=== PATIENT | female | born 1970 | race Caucasian/White ===

== ENCOUNTER → 2018-04-13 14:32 | Outpatient (CLI) | payer OTHER, SELFPAY | PROVIDERS: Family Provider Family Medicine; PCP Family Medicine; Visit Provider Family Medicine | DX: Z12.31 Encounter for screening mammogram for malignant neoplasm of breast (principal) | CPT/HCPCS: 77063; 77067 ==

== ENCOUNTER → 2018-09-06 13:28 | Outpatient (CLI) | payer OTHER, SELFPAY ==
[2018-09-06 11:08] VITALS: BMI 22.8
[2018-09-09 20:18] LABS: HPV APTIMA, High Risk Positive (Negative)
== END ==
PROVIDERS: Family Provider Family Medicine; PCP Family Medicine; Referring Provider Obstetrics & Gynecology; Visit Provider Obstetrics & Gynecology
DX: Z12.4 Encounter for screening for malignant neoplasm of cervix (principal)
CPT/HCPCS: 87624; 88175; G0145

== ENCOUNTER → 2018-10-13 13:20 | Outpatient (CLI) | payer OTHER, SELFPAY ==
[2018-10-13 10:18] VITALS: BMI 23.3
--- NOTE | 2018-10-13 11:30 | CER_PTH ---
PATIENT: KARINE HASSAN LOC: [facility]#:[id number] AGE/SX: 55/F ROOM: RE10/13/[address]: Dr. Aida Mena MD : 1970 BED: DIS: SPEC #: [id number] RECD: 10/13/18 14:16 STATUS: JAMILA MCKENNA #: [id number] SEBASTIEN: 10/13/18 11:[address]: Aida Mena DEPT: SURGICAL PATHOLOGY RECD BY: José Miguel Kumar ENTERED: 10/13/18 14:17 SP TYPE: CERV OTHR DR: Dr. Karine Parsons DO Tissues: Uterine cervix, NOS Procedures: Surgery Specimen Level IV HEADER OPERATION: Colposcopy PRE-OP DIAGNOSIS: Abnormal pap TISSUE SUBMITTED: 6 o'clock MICROSCOPIC DIAGNOSIS Cervix at 6 o'clock, biopsy: Fibrous tissue with vascular ectasia, focal recent hemorrhage and chronic inflammation. AM:lydia 10/16/18 COMMENT Squamous ucosa is not represented in the biopsy. Clinical correlation is suggested. Case has been reviewed in consultation with Dr. Izaguirre who concurs with the above diagnosis. IDC:[email or web address] MICROSCOPIC DESCRIPTION Slides are reviewed. GROSS DESCRIPTION Received is one container labeled with the patient's name and not further designated. The specimen consists of one minute fragment and multiple fragments of segovia mucoid tissue. The minute fragment measures 0.1 cm in greatest dimension. The specimen is totally submitted in one cassette. / YAW:lydia 10/13/18 TC:3 CPT: 90746
== END ==
PROVIDERS: Family Provider Family Medicine; PCP Family Medicine; Referring Provider Obstetrics & Gynecology; Visit Provider Obstetrics & Gynecology
DX: R87.619 Unspecified abnormal cytological findings in specimens from cervix uteri (principal)
CPT/HCPCS: 88305

== ENCOUNTER → 2019-09-11 16:58 | Outpatient (CLI) | payer OTHER, SELFPAY ==
[2019-09-11 14:09] VITALS: BMI 23.3
[2019-09-18 16:42] LABS: HPV APTIMA, High Risk Positive (Negative)
== END ==
PROVIDERS: Family Provider Family Medicine; PCP Family Medicine; Referring Provider Obstetrics & Gynecology; Visit Provider Obstetrics & Gynecology
DX: N87.0 Mild cervical dysplasia (principal)
CPT/HCPCS: 87624; 88175; G0145

== ENCOUNTER → 2019-09-19 14:25 | Outpatient (CLI) | payer OTHER, SELFPAY ==
[2019-09-11 14:09] VITALS: BMI 23.3
--- NOTE | 2019-09-19 14:26 | BI_ITS ---
MAMMOGRAPHY - BILATERAL SCREENING REASON FOR EXAM: Female, 49 years old. Routine annual screening examination. PERTINENT HISTORY: Non-contributory. TECHNIQUE: Digital bilateral breast gustavo (3D mammographic acquisition) in the CC and MLO projections. 2-D mediolateral oblique (MLO) and craniocaudad (CC) views of both breasts were obtained. CAD: Full Field Digital Mammography with Computer Added Detection was performed. COMPARISON: Comparison is made with prior examination dated April 13, 2018. FINDINGS: Breast Composition: The breasts are extremely dense, which lowers the sensitivity of mammography. There are no dominant masses or suspicious calcifications. A tissue clip marker is once again seen in the upper lateral aspect of the right breast from prior biopsy. No other significant abnormalities are identified. There has been no significant change since the prior study. BI/SCREEN MAMM (CAD) W/GUSTAVO BILAT IMPRESSION: Stable bilateral screening mammogram. Yearly follow-up mammogram recommended. (A) ASSESSMENT CATEGORY: BIRADS Category 2: Benign. A letter regarding these results will be sent to the patient by the facility within 30 days. Approximately 10% of breast cancers are not detected by mammography. A normal mammogram should not delay biopsy of a clinically suspicious abnormality. [id number] Electronically Signed: Isidro Marino, at 15:30 EST , Service support ,
== END ==
PROVIDERS: Family Provider Family Medicine; PCP Family Medicine; Referring Provider Obstetrics & Gynecology; Visit Provider Obstetrics & Gynecology
DX: Z12.31 Encounter for screening mammogram for malignant neoplasm of breast (principal)
CPT/HCPCS: 77063; 77067

== ENCOUNTER → 2020-09-22 08:38 | Outpatient (CLI) | payer OTHER, SELFPAY ==
[2019-11-07 09:04] VITALS: BMI 24.0
--- NOTE | 2020-09-22 08:39 | BI_ITS ---
MAMMOGRAPHY - BILATERAL SCREENING REASON FOR EXAM: Female, 50 years old. Routine annual screening examination. PERTINENT HISTORY: Non-contributory. TECHNIQUE: Digital bilateral breast gustavo (3D mammographic acquisition) in the CC and MLO projections. 2-D mediolateral oblique (MLO) and craniocaudad (CC) views of both breasts were obtained. CAD: Full Field Digital Mammography with Computer Added Detection was performed. COMPARISON: Comparison is made with prior study dated 03/19/2020 and 04/13/2018. FINDINGS: Breast Composition: The breasts are extremely dense, which lowers the sensitivity of mammography. There are no dominant masses or suspicious calcifications. A tissue clip marker is once again seen in the upper lateral deep portion of the right breast. No other significant abnormalities are identified. There has been no significant change since the prior study. BI/SCRN MAMM (CAD)W/GUSTAVO BILAT IMPRESSION: Stable bilateral screening mammogram. Yearly follow-up mammogram recommended. (A) ASSESSMENT CATEGORY: BIRADS Category 2: Benign. A letter regarding these results will be sent to the patient by the facility within 30 days. Approximately 10% of breast cancers are not detected by mammography. A normal mammogram should not delay biopsy of a clinically suspicious abnormality. [id number] Electronically Signed: Isidro Marino MD at 9:33 EST , Service support ,
== END ==
PROVIDERS: PCP Family Medicine; Referring Provider Obstetrics & Gynecology; Visit Provider Obstetrics & Gynecology
DX: Z12.31 Encounter for screening mammogram for malignant neoplasm of breast (principal)
CPT/HCPCS: 77063; 77067

== ENCOUNTER → 2020-09-26 13:39 | Outpatient (CLI) | payer OTHER, SELFPAY ==
[2020-09-26 11:43] VITALS: BMI 24.7
[2020-09-30 21:13] LABS: HPV APTIMA, High Risk Positive (Negative)
== END ==
PROVIDERS: PCP Family Medicine; Referring Provider Obstetrics & Gynecology; Visit Provider Obstetrics & Gynecology
DX: Z12.4 Encounter for screening for malignant neoplasm of cervix (principal)
CPT/HCPCS: 87624; 88175; G0145

== ENCOUNTER → 2020-10-10 16:00 | Outpatient (CLI) | payer OTHER, SELFPAY ==
[2020-10-09 14:23] VITALS: BMI 24.9
--- NOTE | 2020-10-10 | CER_PTH ---
PATIENT: KARINE HASSAN LOC: [facility] U#:[id number] AGE/SX: 55/F ROOM: RE10/10/[address]: Dr. Aida Mena MD : 1970 BED: DIS: SPEC #: [id number] RECD: 10/13/20 08:08 STATUS: JAMILA MCKENNA #: [id number] SEBASTIEN: 10/10/20 00:[address]: Aida Mena DEPT: SURGICAL PATHOLOGY RECD BY: Aleta Mak ENTERED: 10/13/20 08:08 SP TYPE: CERV OTHR DR: Dr. Karine Parsons DO Tissues: A - Uterine cervix, NOS B - Endocervical Procedures: Surgery Specimen Level IV HEADER OPERATION: Colposcopy PRE-OP DIAGNOSIS: LGSIL HPV TISSUE SUBMITTED: A - Cervical 7 o'clock, B - ECC MICROSCOPIC DIAGNOSIS A. Cervix at 7 o'clock, biopsy: Focal HPV change present. Squamous metaplasia and chronic inflammation. See comment. B. Endocervix, curettings: Scant strips of benign superficial endocervix. No evidence of dysplasia. AM:lydia 10/13/2020 COMMENT A. Results from immunohistochemistry ([id number]) for surrogate HPV marker (p16) will be reported separately. MICROSCOPIC DESCRIPTION Slides are reviewed. GROSS DESCRIPTION A - Received in fixative is one container labeled with the patient's name and designated cervical biopsy 7 o'clock. The specimen consists of one irregular fragment of light segovia soft tissue that measures 0.3 x 0.3 x 0.1 cm. The specimen is totally submitted in one cassette. B - Received in fixative is one container labeled with the patient's name and designated ECC. The specimen consists of a scant amount of soft tissue. The specimen is totally submitted for cell block preparation. / SJ:lydia 10/10/20 TC:3 CPT: 97463 x2
--- NOTE | 2020-10-10 | IMM_PTH ---
PATIENT: KARINE HASSAN LOC: [facility] U#:[id number] AGE/SX: 55/F ROOM: RE10/10/[address]: Dr. Aida Mena MD : 1970 BED: DIS: SPEC #: [id number] RECD: 10/13/20 14:31 STATUS: JAMILA REQ #: [id number] SEBASTIEN: 10/10/20 00:[address]: Aida Mena DEPT: IMMUNOHISTOCHEMISTRY RECD BY: Conchita Elaine ENTERED: 10/13/20 14:32 SP TYPE: IMMUNO OTHR DR: Dr. Karine Parsons DO Tissues: A - Uterine cervix, NOS Procedures: p16 (initial) KI-67 (add) PHYSICIAN & INSTITUTION [place] [address] SPECIMEN INFORMATION: Tissue Source: A - Cervix at 7 o'clock Clinical Info: [facility] HPV Specimen Number: [id number] CPT code: 15423, 32328 METHODOLOGY: Deparaffinized sections of prefer/formalin-fixed tissue or PAP/DQ stained slides are incubated with monoclonal/polyclonal antibodies/oligonucleotide probes. Localization is made via biotin free immunoperoxidase method. Appropriate controls are performed and reacted as expected. Results on target cell population are indicated in the following table: RESULTS: ANTIBODY / CLONE RESULT Block A P16 (E6H4) positive, focal, patchy Ki-67 (30-9) positive These tests were developed and their performance characteristics determined by [facility]. They may not have been cleared or approved by the U.S. Food and Drug Administration. The FDA has determined that such clearance or approval is not necessary. The above immunohistochemical/dualISH markers are ordered and reviewed by the Pathologist. INTERPRETATION: A. Cervix at 7 o'clock, biopsy: Focal HPV change present. AM:lydia 10/14/2020
== END ==
PROVIDERS: PCP Family Medicine; Visit Provider Obstetrics & Gynecology
DX: R87.622 Low grade squamous intraepithelial lesion on cytologic smear of vagina (LGSIL) (principal)
CPT/HCPCS: 88305; 88341; 88342

== ENCOUNTER 2020-11-14 09:59 | Outpatient (RCR) | payer OTHER, SELFPAY ==
[2020-10-09 14:23] VITALS: BMI 24.9
[2020-11-14] MEDS: COVID-19 VACC, MRNA(PFIZER)/PF 30 MCG/0.3 ML SYRINGE IM (12:20)
[2020-12-05] MEDS: COVID-19 VACC, MRNA(PFIZER)/PF 30 MCG/0.3 ML SYRINGE IM (12:02)
== END 2020-11-14 23:59 ==
LOC: IMMUN 09:59
PROVIDERS: PCP Family Medicine; Visit Provider Family Medicine
DX: Z23 Encounter for immunization (principal)
CPT/HCPCS: 0001A; 0002A; 91300

== ENCOUNTER 2021-09-23 07:58 | Outpatient (CLI) | payer OTHER, SELFPAY ==
--- NOTE | 2021-09-23 08:03 | BI_ITS ---
MAMMOGRAPHY - BILATERAL SCREENING REASON FOR EXAM: Female, 51 years old. Routine annual screening examination. PERTINENT HISTORY: Non-contributory. TECHNIQUE: Digital bilateral breast gustavo (3D mammographic acquisition) in the CC and MLO projections. 2-D mediolateral oblique (MLO) and craniocaudad (CC) views of both breasts were obtained. CAD: Full Field Digital Mammography with Computer Added Detection was performed. COMPARISON: Comparison is made with prior study dated 09/22/2020 and 03/19/2020. FINDINGS: Breast Composition: The breasts are extremely dense, which lowers the sensitivity of mammography. There are no dominant masses or suspicious calcifications. Interstitial clip marker is once again seen in the upper lateral deep portion of the right breast. No other significant abnormalities are identified. There has been no significant change since the prior study. BI/SCRN MAMM (CAD)W/GUSTAVO BILAT IMPRESSION: Stable bilateral screening mammogram. Yearly follow-up mammogram recommended. (A) ASSESSMENT CATEGORY: BIRADS Category 2: Benign. A letter regarding these results will be sent to the patient by the facility within 30 days. Approximately 10% of breast cancers are not detected by mammography. A normal mammogram should not delay biopsy of a clinically suspicious abnormality. [id number] Electronically Signed: Isidro Marino MD at 9:13 EST ,
== END 2021-09-23 23:59 | disposition short-term general hospital (02) ==
PROVIDERS: PCP Family Medicine; Referring Provider Obstetrics & Gynecology; Visit Provider Obstetrics & Gynecology
DX: Z12.31 Encounter for screening mammogram for malignant neoplasm of breast (principal)
CPT/HCPCS: 77063; 77067

== ENCOUNTER 2021-10-06 17:10 | Outpatient (CLI) | payer OTHER, SELFPAY ==
[2021-10-12 16:54] LABS: HPV APTIMA, High Risk Positive (Negative)
== END 2021-10-06 23:59 | disposition home or self-care (01) ==
PROVIDERS: PCP Family Medicine; Visit Provider Obstetrics & Gynecology
DX: Z12.4 Encounter for screening for malignant neoplasm of cervix (principal)
CPT/HCPCS: 87624; 88175; G0145

== ENCOUNTER → 2021-12-31 | Outpatient (CLI) | payer OTHER, SELFPAY ==
--- NOTE | 2021-12-31 14:00 | CER_PTH ---
PATIENT: KARINE HASSAN LOC: [facility] U#:[id number] AGE/SX: 51/F ROOM: RE12/31/[address]: Dr. Yadira Hidalgo DO : 1970 BED: DIS: 12/31/2021 SPEC #: [id number] RECD: 12/31/21 15:41 STATUS: JAMILA ANDRES #: [id number] SEBASTIEN: 12/31/21 14:[address]: Yadira Hidalgo DEPT: SURGICAL PATHOLOGY RECD BY: Aleta Mak ENTERED: 01/01/22 13:38 SP TYPE: CERV OTHR DR: Dr. Karine Parsons DO Tissues: A - Endocervical B - Uterine cervix, NOS C - Uterine cervix, NOS Procedures: Surgery Specimen Level IV HEADER OPERATION: Colposcopy PRE-OP DIAGNOSIS: SIERRA I TISSUE SUBMITTED: A ? Endocervical curettings, B ? 12 o?clock, C ? 6 o?clock MICROSCOPIC DIAGNOSIS A. Endocervical curettings: Scant fragments of benign endocervical epithelium and benign endocervical mucosa with mild chronic inflammation. Negative for dysplasia. B. Cervix, 12 o?clock, biopsy: Focal mild chronic inflammation and squamous metaplasia. Negative for dysplasia. C. Cervix, 6 o?clock, biopsy: A fragment of benign endocervical mucosa with mild chronic inflammation. Negative for dysplasia. SJ:lydia 01/04/2022 MICROSCOPIC DESCRIPTION Slides are reviewed. GROSS DESCRIPTION A - Received in fixative is one container labeled with the patient's name and designated endocervical curettings. The specimen consists of a scant amount of soft tissue. The specimen is totally submitted for cell block preparation. B - Received is one container labeled with the patient's name and not further designated. The specimen consists of a single irregular fragment of segovia tissue measuring 0.7 x 0.3 x 0.2 cm. The specimen is totally submitted in one cassette. C - Received is one container labeled with the patient's name and not further designated. The specimen consists of multiple irregular fragments of segovia soft tissue that in aggregate measure 0.2 x 0.2 x 0.1 cm. The specimen is totally submitted in one cassette. / AM:lydia 01/01/2022 TC:3 CPT: 20002 x3
== END | disposition home or self-care (01) ==
PROVIDERS: PCP Family Medicine; Visit Provider Obstetrics & Gynecology
DX: N87.0 Mild cervical dysplasia (principal)
CPT/HCPCS: 88305

== ENCOUNTER → 2022-10-29 | Outpatient (CLI) | payer OTHER, SELFPAY ==
--- NOTE | 2022-10-29 07:40 | BI_ITS ---
MAMMOGRAPHY - BILATERAL SCREENING REASON FOR EXAM: Female, 52 years old. Routine annual screening examination. PERTINENT HISTORY: Aunt with breast cancer. Prior right ultrasound-guided breast biopsy. TECHNIQUE: Digital bilateral breast gustavo (3D mammographic acquisition) in the CC and MLO projections. 2-D mediolateral oblique (MLO) and craniocaudad (CC) views of both breasts were obtained. CAD: Full Field Digital Mammography with Computer Added Detection was performed. COMPARISON: Comparison is made with prior study dated March 23, 2022 and March 22, 2021. FINDINGS: Breast Composition: The breasts are extremely dense, which lowers the sensitivity of mammography. There are no dominant masses or suspicious calcifications. A tissue clip marker is once again seen in the upper deep slightly lateral aspect of the right breast. No other significant abnormalities are identified. There has been no significant change since the prior study. BI/SCRN MAMM (CAD)W/GUSTAVO BILAT IMPRESSION: Stable bilateral screening mammogram. Yearly follow-up mammogram recommended. (A) ASSESSMENT CATEGORY: BIRADS Category 2: Benign. A letter regarding these results will be sent to the patient by the facility within 30 days. Approximately 10% of breast cancers are not detected by mammography. A normal mammogram should not delay biopsy of a clinically suspicious abnormality. [id number] Electronically Signed: Isidro Marino MD at 9:03 EST ,
== END | disposition home or self-care (01) ==
LOC: OPBI 07:40
PROVIDERS: PCP Family Medicine; Visit Provider Obstetrics & Gynecology
DX: Z12.31 Encounter for screening mammogram for malignant neoplasm of breast (principal)
CPT/HCPCS: 77063; 77067

== ENCOUNTER → 2022-12-14 | Outpatient (CLI) | payer OTHER, SELFPAY ==
[2022-12-14 14:26] LABS: Estradiol < 11.0 pg/mL; Follicle Stimulating Hormone 89.4 mIU/mL; Thyroid Stim Hormone (TSH) 1.68 uIU/mL (0.358-3.74)
[2022-12-22 16:09] LABS: HPV APTIMA, High Risk Positive (Negative)
== END | disposition home or self-care (01) ==
PROVIDERS: PCP Family Medicine; Referring Provider Obstetrics & Gynecology; Visit Provider Obstetrics & Gynecology
DX: N95.1 Menopausal and female climacteric states (principal); Z12.4 Encounter for screening for malignant neoplasm of cervix
CPT/HCPCS: 36415; 82670; 83001; 84443; 87624; 88175; G0145

== ENCOUNTER → 2023-01-13 | Outpatient (CLI) | payer OTHER, SELFPAY ==
--- NOTE | 2023-01-13 | IMM_PTH ---
PATIENT: KARINE HASSAN LOC: [facility] U#:[id number] AGE/SX: 52/F ROOM: RE01/13/[address]: Dr. Aida Mena MD : 1970 BED: DIS: 01/13/2023 SPEC #: [id number] RECD: 01/17/23 12:06 STATUS: JAMILA REQ #: [id number] SEBASTIEN: 01/13/23 00:[address]: Aida Mena DEPT: IMMUNOHISTOCHEMISTRY RECD BY: Conchita Elaine ENTERED: 01/17/23 12:07 SP TYPE: IMMUNO OTHR DR: Dr. Karine Parsons, DO Tissues: Uterine cervix, NOS Procedures: p16 (initial) KI-67 (add) PHYSICIAN & INSTITUTION [place] [address] SPECIMEN INFORMATION: Tissue Source: Cervix, 2 o?clock Clinical Info: HPV positive Specimen Number: [id number] CPT code: 29754, 38238 METHODOLOGY: Deparaffinized sections of prefer/formalin-fixed tissue or PAP/DQ stained slides are incubated with monoclonal/polyclonal antibodies/oligonucleotide probes. Localization is made via biotin free immunoperoxidase method. Appropriate controls are performed and reacted as expected. Results on target cell population are indicated in the following table: RESULTS: ANTIBODY / CLONE RESULT P16 (E6H4) positive, rare cells with patchy staining Ki-67 (30-9) positive, very low These tests were developed and their performance characteristics determined by [facility]. They may not have been cleared or approved by the U.S. Food and Drug Administration. The FDA has determined that such clearance or approval is not necessary. The above immunohistochemical/dualISH markers are ordered and reviewed by the Pathologist. INTERPRETATION: Cervix, 2 o?clock, biopsy: Focal changes consistent with HPV cytopathic effects. SJ:lydia 01/18/2023
--- NOTE | 2023-01-13 15:45 | CER_PTH ---
PATIENT: KARINE HASSAN LOC: [facility]#:[id number] AGE/SX: 52/F ROOM: RE01/13/[address]: Dr. Aida Mena MD : 1970 BED: DIS: 01/13/2023 SPEC #: [id number] RECD: 01/13/23 16:41 STATUS: JAMILA ANDRES #: [id number] SEBASTIEN: 01/13/23 15:[address]: Aida Mena DEPT: SURGICAL PATHOLOGY RECD BY: Mami Verdin ENTERED: 01/14/23 07:27 SP TYPE: CERV OTHR DR: Dr. Karine Parsons, DO Tissues: Uterine cervix, NOS Procedures: Surgery Specimen Level IV HEADER OPERATION: Colposcopy PRE-OP DIAGNOSIS: HPV positive TISSUE SUBMITTED: 2 o?clock MICROSCOPIC DIAGNOSIS Cervix, 2 o?clock, biopsy: Focal changes consistent with HPV cytopathic effects. Focal mild chronic inflammation. See comment. SJ:lydia 01/17/2023 COMMENT Immunohistochemistry ([id number]) for surrogate HPV marker (p16) supports the above diagnosis. MICROSCOPIC DESCRIPTION Slides are reviewed. GROSS DESCRIPTION Received in fixative is one container labeled with the patient's name and designated 2 o'clock. The specimen consists of one irregular fragment of light segovia soft tissue that measures 0.3 x 0.2 x 0.1 cm. The specimen is totally submitted in one cassette. / YAW:lydia 01/14/2023 TC:5 CPT: 57058
== END | disposition home or self-care (01) ==
LOC: LABSPEC 16:44
PROVIDERS: PCP Family Medicine; Referring Provider Obstetrics & Gynecology; Visit Provider Obstetrics & Gynecology
DX: R87.820 Cervical low risk human papillomavirus (HPV) DNA test positive (principal)
CPT/HCPCS: 88305; 88341; 88342

== ENCOUNTER 2023-01-19 08:49 | Day surgery (SDC) | payer OTHER, SELFPAY ==
[2023-01-19] VITALS (7 sets, daily range): BP systolic 100–138; BP diastolic 57–81; PULSE 74–95; RESP 16–18; TEMP 36.4–36.9; O2SAT 96–100; BMI 26.1
[2023-01-19] MEDS: Lactated Ringers 1,000 ML 15 ML IV (09:19)
--- NOTE | 2023-01-19 09:21 | HP.PCM_ITS ---
[facility] - General General Date of Admission: 01/19/23 HPI Narrative EDY TAVERAS, is a 52 F who presents for screening colonoscopy. Patient never had previous colonoscopy. Patient has bowel movements about every other day denies any blood. Patient denies any family history of colon cancer. Patient denies any chronic abdominal pain/nausea/vomiting/reflux. [facility] Medical History (Updated 01/18/23 @ 11:41 by Cami Gutierrez) Anxiety Depression History of breast lump History of depression History of irregular heartbeat Hypertension Low grade squamous intraepithelial lesion (LGSIL) Non-smoker Seasonal allergies Wears contact lenses Wears glasses Home Medications venlafaxine 150 mg capsule,extended release 24 hr (Effexor XR) 150 mg PO DAILY #90 caps 09/26/20 [Rx Last Taken Unknown] venlafaxine 75 mg capsule,extended release 24 hr (Effexor XR) 75 mg PO DAILY #90 caps 09/26/20 [Rx Last Taken Unknown] lorazepam 0.5 mg tablet 0.5 mg PO DAILY PRN Anxiety 11/29/22 [History Last Taken Unknown] metoprolol tartrate 25 mg tablet 25 mg PO BID 11/29/22 [History Last Taken 01/19/23] estradiol 0.05 mg/24 hr semiweekly transdermal patch 1 patch transdermal 2XW #8 ea 12/14/22 [Rx Last Taken Unknown] progesterone micronized 100 mg capsule See Rx Instructions .Route .COMPLEX #30 caps 01/10/23 [Rx Last Taken Unknown] multivitamin 1 tab PO DAILY 01/17/23 [History Last Taken Unknown] multivitamin 1 tab PO DAILY 01/17/23 [History Last Taken Unknown] Allergy/AdvReac Type Severity Reaction Status Date / Time No Known Allergies Allergy Verified 01/19/23 09:08 Family History Father Anxiety Cancer pancreatic, liver Depression Aunt Arthritis Unknown Bleeding disorder Grandmother Cancer Brother Depression Aunt Depression Mother Osteoporosis Surgical History History of bunionectomy Social History Smoking Status: Never smoker alcohol intake: never substance use type: does not use caffeine: Yes what type of physical activity do you participate in: walking seatbelt use: always do you feel safe at home: Yes additional social history: - Works for [employer] Past Medical/Surgical History Planned Operation Planned Operative Procedure/s: COLONOSCOPY-OA Previous Hospitalizations/Surgeries HX Hospitalizations: No Any Problems With Anesthesia: Yes (NAUSEA) You/Your Family Experience Fever (Hyperthermia) With Anes: No Cholinesterase deficiency: No Cardiovascular Hx Hypertension: Yes (CONTROLLED ON MED) Respiratory Hx Sleep Apnea: No Hx Respiratory Tract Infection/Cold (presently): No Do You Snore Loudly (louder than talking or can be heard): No Do You Often Feel Tired/ Fatigued/ Sleepy Dring Daytime?: No Has Anyone Observed You Stop Breathing During Sleep?: No Result (for STOP score): Negative Smoking Status: Never smoker Neurological Does patient have nerve stimulator: No Reproduction : No Miscellaneous Recent Exposure to Contagious Disease: No Allergies No Known Allergies Allergy (Verified 01/19/23 09:08) Discharge Is Pt Admitted From a Custodial, or a Alf: No After D/C, Where Do you Plan to Go: Return Home Vital Signs Vital Signs Vital Signs: 01/19/23 09:09 01/19/23 09:09 Temperature 98.0 F Temperature Source Temporal Pulse Rate 95 Respiratory Rate 18 Respiratory Pattern Normal Blood Pressure 138/81 H Blood Pressure Mean 100 Blood Pressure Source Monitor Blood Pressure Position Semi-Fowlers Blood Pressure Location Left Arm Pulse Ox 100 Oxygen Delivery Method Room Air Weight Weight: 152 lb 1.903 oz Body Mass Index (BMI) 26.1 Physical Exam Const alert, oriented x3 and no apparent distress HEENT normocephalic and head/scalp atraumatic Resp normal respiratory effort Cardio regular rate GI soft to palpation and non-tender; Negative for non-distended Palpation: Negative for guarding Extremity no clubbing, cyanosis or edema Neuro CN's II-XII intact bilaterally Psych mental status grossly normal Assessment & Plan Assessment/Plan (1) Encounter for screening for malignant neoplasm of colon: Surgery Risks - Colonoscopy I discussed with the patient the risks of the procedure: Yes Risks Include but are not Limited To: Risks include but are not limited to: Bleeding, perforation requiring further surgery, inability to complete colonoscopy requiring barium enema.
--- NOTE | 2023-01-19 09:45 | COLBX_PTH ---
PATIENT: KARINE HASSAN LOC: [facility] U#:[id number] AGE/SX: 52/F ROOM: RE01/19/[address]: Dr. Aranza York MD : 1970 BED: DIS: 01/19/2023 SPEC #: [id number] RECD: 01/19/23 10:40 STATUS: JAMILA REFabiana #: [id number] SEBASTIEN: 01/19/23 09:[address]: Aranza York DEPT: SURGICAL PATHOLOGY RECD BY: Mami Verdin ENTERED: 01/19/23 11:41 SP TYPE: COLON BX OTHR DR: Dr. Karine Parsons, DO Tissues: Rectum, NOS Procedures: Surgery Specimen Level IV HEADER OPERATION: Colonoscopy ? open access (MAC) with biopsies PRE-OP DIAGNOSIS: Screening TISSUE SUBMITTED: Rectum polyp biopsy MICROSCOPIC DIAGNOSIS Rectal polyp, biopsy: Fragments of hyperplastic polyp. SJ:lydia 01/20/2023 MICROSCOPIC DESCRIPTION Slides are reviewed. GROSS DESCRIPTION Received in fixative is one container labeled with the patient's name and designated rectum polyp biopsy. The specimen consists of multiple irregular fragments of light segovia soft tissue that in aggregate measure 0.8 x 0.8 x 0.1 cm. The specimen is totally submitted in one cassette. / SJ:rg 01/19/2023 TC:5 CPT: 34549
--- NOTE | 2023-01-19 10:00 | OP.COLON_ITS ---
Patient Name: Karine Westbrook Procedure Date: 01/19/2023 9:25 AM Date of : 1970 Age: 52 Procedure: Colonoscopy Indications: Screening for colorectal malignant neoplasm Providers: Aranza York MD Medicines: Monitored Anesthesia Care Patient Profile: This is a 52 year old female. Last Colonoscopy: none. The patient's first colonoscopy is today. Complications: No immediate complications. Procedure: Pre-Anesthesia Assessment: - Prior to the procedure, a History and Physical was performed, and patient medications and allergies were reviewed. The patient's tolerance of previous anesthesia was also reviewed. The risks and benefits of the procedure and the sedation options and risks were discussed with the patient. All questions were answered, and informed consent was obtained. Prior Anticoagulants: The patient has taken no previous anticoagulant or antiplatelet agents. ASA Grade Assessment: Per anesthesia. After reviewing the risks and benefits, the patient was deemed in satisfactory condition to undergo the procedure. After I obtained informed consent, the scope was passed under direct vision. Throughout the procedure, the patient's blood pressure, pulse, and oxygen saturations were monitored continuously. The Colonoscope was introduced through the anus with the intention of advancing to the cecum. The scope was advanced to the descending colon before the procedure was aborted. Medications were given. The colonoscopy was technically difficult and complex due to poor bowel prep with stool present. The patient tolerated the procedure well. The quality of the bowel preparation was poor. Scope In: 9:40:50 AM Scope Out: 9:52:46 AM Total Procedure Duration Time 0 hours 11 minutes 56 seconds Findings: The perianal and digital rectal examinations were normal. Two sessile polyps were found in the rectum. The polyps were 3 to 4 mm in size. These polyps were removed with a cold biopsy forceps. Resection and retrieval were complete. Semi-solid stool was found in the recto-sigmoid colon and in the sigmoid colon. Impression: - Preparation of the colon was poor. - Two 3 to 4 mm polyps in the rectum, removed with a cold biopsy forceps. Resected and retrieved. - Stool in the recto-sigmoid colon and in the sigmoid colon. Recommendation: - Discharge patient to home. - Clears if willing to have repeat colonoscopy tomorrow otherwise previous. - Continue present medications. - Await pathology results. - Repeat colonoscopy at appointment to be scheduled because the bowel preparation was poor. Procedure Code(s): --- Professional --- 84574, 52,PT, Colonoscopy, flexible; with biopsy, single or multiple Diagnosis Code(s): --- Professional --- Z12.11, Encounter for screening for malignant neoplasm of colon K62.1, Rectal polyp CPT copyright 2017 [employer]. All rights reserved. The codes documented in this report are preliminary and upon manager cosmetic review may be revised to meet current compliance requirements. MD Aranza Fenton MD 01/19/2023 9:59:42 AM This report has been signed electronically. Number of Addenda: 0 Note Initiated On: 01/19/2023 9:25 AM
--- NOTE | 2023-01-19 10:01 | OP.CCLET_ITS ---
01/19/2023 Karnie Parsons [address] [place] [address] Re : Colonoscopy procedure for Karine Westbrook Dear Dr. Parsons This procedure was performed on Thursday, January 19, 2023. My impressions and recommendations are as follows: Impressions : - Preparation of the colon was poor. - Two 3 to 4 mm polyps in the rectum, removed with a cold biopsy forceps. Resected and retrieved. - Stool in the recto-sigmoid colon and in the sigmoid colon. Recommendations : - Discharge patient to home. - Clears if willing to have repeat colonoscopy tomorrow otherwise previous. - Continue present medications. - Await pathology results. - Repeat colonoscopy at appointment to be scheduled because the bowel preparation was poor. My findings are described in the full procedure note, which is enclosed. If I can be of further assistance, please feel free to contact me at Doctor phone number(s): , Work: . Sincerely, MD Aranza Fenton MD 01/19/2023 9:59:42 AM This report has been signed electronically.
== END 2023-01-19 10:54 | disposition home or self-care (01) ==
LOC: EN 08:50 → AC 08:51
PROVIDERS: PCP Family Medicine; Referring Provider Surgery; Visit Provider Surgery
PROC: 0DJD8ZZ Inspection of Lower Intestinal Tract, Via Natural or Artificial Opening Endoscopic (ICD-10-PCS; CPT 45378; principal; 2023-01-19 09:40)
DX: Z12.11 Encounter for screening for malignant neoplasm of colon (principal); K62.1 Rectal polyp; I10 Essential (primary) hypertension; Z79.899 Other long term (current) drug therapy
CPT/HCPCS: 45380; 81025; 88305; J7120; J2405

== ENCOUNTER 2023-01-20 11:24 | Day surgery (SDC) | payer OTHER, SELFPAY ==
--- NOTE | 2023-01-20 | IMM_PTH ---
PATIENT: KARINE HASSAN LOC: EN U#:[id number] AGE/SX: 52/F ROOM: RE01/20/[address]: Dr. Aranza York MD : 1970 BED: DIS: 01/20/2023 SPEC #: [id number] RECD: 01/21/23 13:45 STATUS: JAMILA REQ #: [id number] SEBASTIEN: 01/20/23 00:[address]: Aranza York DEPT: IMMUNOHISTOCHEMISTRY RECD BY: Conchita Elaine ENTERED: 01/21/23 13:45 SP TYPE: IMMUNO OTHR DR: Dr. Karine Parsons DO Tissues: Cecum, NOS Procedures: CD20 (add) CD45 (add) CD5 (add) CD79A (add) KI-67 (add) CD3 (initial) PHYSICIAN & INSTITUTION [place] [address] SPECIMEN INFORMATION: Tissue Source: Cecum polyp Clinical Info: Screening Specimen Number: [id number] CPT code: 81044, 66966 x5 METHODOLOGY: Deparaffinized sections of prefer/formalin-fixed tissue or PAP/DQ stained slides are incubated with monoclonal/polyclonal antibodies/oligonucleotide probes. Localization is made via biotin free immunoperoxidase method. Appropriate controls are performed and reacted as expected. Results on target cell population are indicated in the following table: RESULTS: ANTIBODY / CLONE RESULT CD3 (PS1) positive CD5 (SP10) positive CD20 (L26) positive, zonal CD45 (RP2/18) positive CD79a (11E3) positive, zonal Ki-67 (30-9) positive, 1% These tests were developed and their performance characteristics determined by [facility]. They may not have been cleared or approved by the U.S. Food and Drug Administration. The FDA has determined that such clearance or approval is not necessary. The above immunohistochemical/dualISH markers are ordered and reviewed by the Pathologist. INTERPRETATION: Cecum polyp, biopsy: Polytypic (benign) lymphoid aggregate. AM:lydia 01/25/2023
--- NOTE | 2023-01-20 11:35 | PCM.HP.BLA ---
History and Physical Date of Admission: 01/20/23 01/19/23920 MR#:? [id number] Acct: [id number] Name: KARINE TAVERAS Rep #: [id number] :? 1970 52 From:? Aranza York MD PCP: Dr. Karine Parsons, DO ? Status: [facility] Location: [place] [address] HPI - General General Date of Admission: 01/19/23 HPI Narrative KARINE TAVERAS, is a 52 F who presents for screening colonoscopy.? Patient never had previous colonoscopy.? Patient has bowel movements about every other day denies any blood.? Patient denies any family history of colon cancer.? Patient denies any chronic abdominal pain/nausea/vomiting/reflux. PFSH Medical History?(Updated 01/18/23 @ 11:41 by Cami Gutierrez) Anxiety Depression History of breast lump History of depression History of irregular heartbeat Hypertension Low grade squamous intraepithelial lesion (LGSIL) Non-smoker Seasonal allergies Wears contact lenses Wears glasses Home Medications venlafaxine 150 mg capsule,extended release 24 hr (Effexor XR) 150 mg PO DAILY #90 caps 09/26/20 [Rx Last Taken Unknown] venlafaxine 75 mg capsule,extended release 24 hr (Effexor XR) 75 mg PO DAILY #90 caps 09/26/20 [Rx Last Taken Unknown] lorazepam 0.5 mg tablet 0.5 mg PO DAILY PRN Anxiety 11/29/22 [History Last Taken Unknown] metoprolol tartrate 25 mg tablet 25 mg PO BID 11/29/22 [History Last Taken 01/19/23] estradiol 0.05 mg/24 hr semiweekly transdermal patch 1 patch transdermal 2XW #8 ea 12/14/22 [Rx Last Taken Unknown] progesterone micronized 100 mg capsule See Rx Instructions .Route .COMPLEX #30 caps 01/10/23 [Rx Last Taken Unknown] multivitamin 1 tab PO DAILY 01/17/23 [History Last Taken Unknown] multivitamin 1 tab PO DAILY 01/17/23 [History Last Taken Unknown] Allergy/AdvReac Type Severity Reaction Status Date / Time No Known Allergies Allergy ? ? Verified 01/19/23 09:08 Family History? Father Anxiety Cancer ?? ? pancreatic, liver DepressionAunt ArthritisUnknown Bleeding disorderGrandmother CancerBrother DepressionAunt DepressionMother Osteoporosis Surgical History? History of bunionectomy Social History? Smoking Status:? Never smoker alcohol intake:? never substance use type:? does not use caffeine:? Yes what type of physical activity do you participate in:? walking seatbelt use:? always do you feel safe at home:? Yes additional social history:? - Works for [employer] Past Medical/Surgical History Planned Operation Planned Operative Procedure/s: COLONOSCOPY-OA Previous Hospitalizations/Surgeries HX Hospitalizations: No Any Problems With Anesthesia: Yes (NAUSEA) You/Your Family Experience Fever (Hyperthermia) With Anes: No Cholinesterase deficiency: No Cardiovascular Hx Hypertension: Yes (CONTROLLED ON MED) Respiratory Hx Sleep Apnea: No Hx Respiratory Tract Infection/Cold (presently): No Do You Snore Loudly (louder than talking or can be heard): No Do You Often Feel Tired/ Fatigued/ Sleepy Dring Daytime?: No Has Anyone Observed You Stop Breathing During Sleep?: No Result (for STOP score): Negative Smoking Status: Never smoker Neurological Does patient have nerve stimulator: No Reproduction : No Miscellaneous Recent Exposure to Contagious Disease: No Allergies No Known Allergies Allergy (Verified 01/19/23 09:08) Discharge Is Pt Admitted From a Penitentiary, or a Residential: No After D/C, Where Do you Plan to Go: Return Home Vital Signs Vital Signs Vital Signs: ? 01/19/23 09:09 01/19/23 09:09 Temperature ? 98.0 F Temperature Source ? Temporal Pulse Rate ? 95 Respiratory Rate ? 18 Respiratory Pattern Normal ? Blood Pressure ? 138/81 H Blood Pressure Mean ? 100 Blood Pressure Source ? Monitor Blood Pressure Position ? Semi-Fowlers Blood Pressure Location ? Left Arm Pulse Ox ? 100 Oxygen Delivery Method ? Room Air Weight Weight: ? 152 lb 1.903 oz ? Body Mass Index (BMI) ? 26.1? Physical Exam Const alert, oriented x3 and no apparent distress HEENT normocephalic and head/scalp atraumatic Resp normal respiratory effort Cardio regular rate GI soft to palpation and non-tender; Negative for non-distended Palpation: Negative for guarding Extremity no clubbing, cyanosis or edema Neuro CN's II-XII intact bilaterally Psych mental status grossly normal Assessment & Plan Assessment/Plan (1) Encounter for screening for malignant neoplasm of colon: Surgery Risks - Colonoscopy I discussed with the patient the risks of the procedure: Yes Risks Include but are not Limited To: Risks include but are not limited to: Bleeding, perforation requiring further surgery, inability to complete colonoscopy requiring barium enema. 01/19/23 0922 <Electronically signed by Aranza York MD>
[2023-01-20 12:03] LABS: Internal QC Validated? YES +Cl - CLEAR BKGD; Pregnancy, Urine Negative Negative
[2023-01-20 12:16] VITALS: BP 136/81; PULSE 81; RESP 16; TEMP 36.6; O2SAT 100; BMI 26.3
[2023-01-20] MEDS: Lactated Ringers 1,000 ML 15 ML IV (12:19)
--- NOTE | 2023-01-20 13:00 | COLBX_PTH ---
PATIENT: KARINE HASSAN LOC: EN U#:[id number] AGE/SX: 52/F ROOM: RE01/20/[address]: Dr. Aranza York MD : 1970 BED: DIS: 01/20/2023 SPEC #: [id number] RECD: 01/20/23 13:35 STATUS: JAMILA REFabiana #: [id number] SEBASTIEN: 01/20/23 13:[address]: Aranza York DEPT: SURGICAL PATHOLOGY RECD BY: Aleta Mak ENTERED: 01/20/23 13:58 SP TYPE: COLON BX OTHR DR: Dr. Karine Parsons, DO Tissues: Cecum, NOS Procedures: Surgery Specimen Level IV HEADER OPERATION: Colonoscopy (MAC) PRE-OP DIAGNOSIS: Screening TISSUE SUBMITTED: Cecum polyp biopsy MICROSCOPIC DIAGNOSIS Cecal polyp, biopsy: Fragments of benign colonic mucosa with benign lymphoid aggregate. See comment. AM:lydia 01/21/2023 COMMENT Immunohistochemistry ([id number]) supports the above diagnosis. MICROSCOPIC DESCRIPTION Slides are reviewed. GROSS DESCRIPTION Received in fixative is one container labeled with the patient's name and designated cecum polyp biopsy. The specimen consists of multiple irregular fragments of light segovia soft tissue that in aggregate measure 1.0 x 0.2 x 0.1 cm. The specimen is totally submitted in one cassette. / SJ:lydia 01/20/2023 TC:5 CPT: 10230
[2023-01-20 13:21] VITALS: BP 136/81; BP 137/80; PULSE 84; RESP 100; TEMP 36.1; O2SAT 84
[2023-01-20 13:25] VITALS: BP 136/81; BP 147/83; PULSE 82; RESP 16; O2SAT 97
--- NOTE | 2023-01-20 13:26 | OP.CCLET_ITS ---
01/20/2023 Karine Parsons [address] [place] [address] Re : Colonoscopy procedure for Karine Reinaldopeyton Dear Dr. Parsons This procedure was performed on December. My impressions and recommendations are as follows: Impressions : - One less than 5 mm polyp in the cecum, removed with a cold biopsy forceps. Resected and retrieved. - The examination was otherwise normal on direct and retroflexion views. Recommendations : - Discharge patient to home. - Resume previous diet. - Continue present medications. - Await pathology results. - Repeat colonoscopy in 5-10 years for surveillance based on pathology results. My findings are described in the full procedure note, which is enclosed. If I can be of further assistance, please feel free to contact me at Doctor phone number(s): , Work: . Sincerely, MD Aranza Fenton MD 01/20/2023 1:26:34 PM This report has been signed electronically.
--- NOTE | 2023-01-20 13:26 | OP.COLON_ITS ---
Patient Name: Karine Westbrook Procedure Date: 01/20/2023 12:34 PM Date of : 1970 Age: 52 Procedure: Colonoscopy Indications: Screening for colorectal malignant neoplasm Providers: Aranza York MD Medicines: Monitored Anesthesia Care Patient Profile: This is a 52 year old female. Last Colonoscopy: yesterday attempted but poor prep, which was her first Complications: No immediate complications. Procedure: Pre-Anesthesia Assessment: - Prior to the procedure, a History and Physical was performed, and patient medications and allergies were reviewed. The patient's tolerance of previous anesthesia was also reviewed. The risks and benefits of the procedure and the sedation options and risks were discussed with the patient. All questions were answered, and informed consent was obtained. Prior Anticoagulants: The patient has taken no previous anticoagulant or antiplatelet agents. ASA Grade Assessment: Per anesthesia. After reviewing the risks and benefits, the patient was deemed in satisfactory condition to undergo the procedure. After I obtained informed consent, the scope was passed under direct vision. Throughout the procedure, the patient's blood pressure, pulse, and oxygen saturations were monitored continuously. The Colonoscope was introduced through the anus and advanced to the cecum, identified by the appendiceal orifice, ileocecal valve and palpation. The colonoscopy was performed without difficulty. The patient tolerated the procedure well. The quality of the bowel preparation was good. Scope In: 12:45:54 PM Scope Withdrawal Time 0 hours 12 minutes 53 seconds Scope Out: 1:16:28 PM Total Procedure Duration Time 0 hours 30 minutes 34 seconds Findings: The perianal and digital rectal examinations were normal. A less than 5 mm polyp was found in the cecum. The polyp was sessile. The polyp was removed with a cold biopsy forceps. Resection and retrieval were complete. The exam was otherwise without abnormality on direct and retroflexion views. Impression: - One less than 5 mm polyp in the cecum, removed with a cold biopsy forceps. Resected and retrieved. - The examination was otherwise normal on direct and retroflexion views. Recommendation: - Discharge patient to home. - Resume previous diet. - Continue present medications. - Await pathology results. - Repeat colonoscopy in 5-10 years for surveillance based on pathology results. Procedure Code(s): --- Professional --- 85627, PT, Colonoscopy, flexible; with biopsy, single or multiple Diagnosis Code(s): --- Professional --- Z12.11, Encounter for screening for malignant neoplasm of colon D12.0, Benign neoplasm of cecum CPT copyright 2017 [employer]. All rights reserved. The codes documented in this report are preliminary and upon habilitative interventionist review may be revised to meet current compliance requirements. MD Aranza Fenton MD 01/20/2023 1:26:34 PM This report has been signed electronically. Number of Addenda: 0 Note Initiated On: 01/20/2023 12:34 PM
[2023-01-20 13:30] VITALS: BP 136/81; BP 145/102; PULSE 74; RESP 16; O2SAT 94
[2023-01-20 13:35] VITALS: BP 131/75; BP 136/81; PULSE 77; RESP 16; TEMP 36.2; O2SAT 99
[2023-01-20 13:56] VITALS: BP 136/81
== END 2023-01-20 14:06 | disposition home or self-care (01) ==
LOC: EN 11:24 → AC 11:26
PROVIDERS: Anesthesiology; PCP Family Medicine; Referring Provider Family Medicine; Visit Provider Surgery
PROC: 0DJD8ZZ Inspection of Lower Intestinal Tract, Via Natural or Artificial Opening Endoscopic (ICD-10-PCS; CPT 45378; principal; 2023-01-20 12:55)
DX: Z12.11 Encounter for screening for malignant neoplasm of colon (principal); K63.5 Polyp of colon; I10 Essential (primary) hypertension; Z79.899 Other long term (current) drug therapy
CPT/HCPCS: 45380; 81025; 88305; 88341; 88342; J7120; J2405

== ENCOUNTER → 2023-11-02 | Outpatient (CLI) | payer OTHER, SELFPAY ==
--- NOTE | 2023-11-02 09:03 | BI_ITS ---
MAMMOGRAPHY - BILATERAL SCREENING 3-D TOMOSYNTHESIS REASON FOR EXAM: Female, 53 years old. SCREENING PERTINENT HISTORY: No significant family history. TECHNIQUE: 2-D mammograms and 3-D Tomosynthesis of the breast (s) were performed. CAD was performed. COMPARISON: 10/29/2022 FINDINGS: The breast composition is heterogeneously dense that can obscure small breast masses. Scattered benign calcifications are seen. No dense spiculated masses or suspicious microcalcifications are identified. No architectural distortion is identified. There is no skin thickening or retraction. There has been no significant change since the prior study. BI/SCRN MAMM (CAD)W/GUSTAVO BILAT IMPRESSION: No mammographic signs of malignancy. Routine yearly mammograms recommended. ASSESSMENT CATEGORY: BIRADS Category 1: Negative. A letter regarding these results will be sent to the patient by the facility within 30 days. FOLLOW UP RECOMMENDATION: Yearly follow up mammogram recommended. (A) Approximately 10% of breast cancers are not detected by mammography. A normal mammogram should not delay biopsy of a clinically suspicious abnormality. Electronically Signed: Kike Roca MD at 19:39 EST ,
== END | disposition home or self-care (01) ==
LOC: OPBI 09:02
PROVIDERS: PCP Family Medicine; Referring Provider Obstetrics & Gynecology; Visit Provider Obstetrics & Gynecology
DX: Z12.31 Encounter for screening mammogram for malignant neoplasm of breast (principal)
CPT/HCPCS: 77063; 77067

== ENCOUNTER → 2023-12-16 | Outpatient (CLI) | payer OTHER, SELFPAY ==
[2023-12-22 15:08] LABS: HPV APTIMA, High Risk Positive (Negative)
== END | disposition home or self-care (01) ==
LOC: LABSPEC 17:04
PROVIDERS: PCP Family Medicine; Referring Provider Obstetrics & Gynecology; Visit Provider Obstetrics & Gynecology
DX: Z12.4 Encounter for screening for malignant neoplasm of cervix (principal); N87.0 Mild cervical dysplasia
CPT/HCPCS: 87624; 88175; G0145

== ENCOUNTER → 2024-02-03 | Outpatient (CLI) | payer OTHER, SELFPAY ==
--- NOTE | 2024-02-03 | IMM_PTH ---
PATIENT: KARINE HASSAN LOC: GAB U#:[id number] AGE/SX: 53/F ROOM: RE02/03/[address]: Dr. Aida Mena MD : 1970 BED: DIS: 02/03/2024 SPEC #: [id number] RECD: 02/07/24 11:29 STATUS: JAMILA REQ #: [id number] SEBASTIEN: 02/03/24 00:[address]: Aida Mena DEPT: IMMUNOHISTOCHEMISTRY RECD BY: Souleymane Valdez ENTERED: 02/07/24 11:29 SP TYPE: IMMUNO OTHR DR: Dr. Karine Parsons DO Tissues: A - Uterine cervix, NOS Procedures: p16 (initial) KI-67 (add) PHYSICIAN & INSTITUTION [place] [phone] SPECIMEN INFORMATION: Tissue Source: A- 5o'clock biopsy Clinical Info: LGSIL, HPV+ Specimen Number: [id number] CPT code: 18184,72140 METHODOLOGY: Deparaffinized sections of prefer/formalin-fixed tissue or PAP/DQ stained slides are incubated with monoclonal/polyclonal antibodies/oligonucleotide probes. Localization is made via biotin free immunoperoxidase method. Appropriate controls are performed and reacted as expected. Results on target cell population are indicated in the following table: RESULTS: ANTIBODY / CLONE RESULT Block A P16 (E6H4) positive, patchy staining Ki-67 (30-9) positive, low These tests were developed and their performance characteristics determined by [facility]. They may not have been cleared or approved by the U.S. Food and Drug Administration. The FDA has determined that such clearance or approval is not necessary. The above immunohistochemical/dualISH markers are ordered and reviewed by the Pathologist. INTERPRETATION: A. Cervix, 5o'clock, biopsy: Mild squamous dysplasia. COMMENT: Case has been reviewed in consultation with Dr. Goldberg who concurs with the above diagnosis. IDC:[email or web address]/ 02/08/2024
--- NOTE | 2024-02-03 | CER_PTH ---
PATIENT: KARINE HASSAN LOC: GAB U#:[id number] AGE/SX: 53/F ROOM: RE02/03/[address]: Dr. Aida Mena MD : 1970 BED: DIS: 02/03/2024 SPEC #: [id number] RECD: 02/03/24 16:56 STATUS: JAMILA ANDRES #: [id number] SEBASTIEN: 02/03/24 00:[address]: Aida Mena DEPT: SURGICAL PATHOLOGY RECD BY: Aleta Mak ENTERED: 02/06/24 11:32 SP TYPE: CERV OTHR DR: Dr. Karine Parsons, DO Tissues: A - Uterine cervix, NOS B - Endocervical Procedures: Surgery Specimen Level IV HEADER OPERATION: Colposcopy PRE-OP DIAGNOSIS: LGSIL, HPV+ TISSUE SUBMITTED: A- 5 o'clock, B- ECC MICROSCOPIC DIAGNOSIS A. 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 See comment. B. Endocervical curettings: Scant fragments of benign endocervical mucosa and mucous, negative for dysplasia. / 02/07/2024 COMMENT A. Immunohistochemistry ([id number]) for surrogate HPV marker (p16) supports the above diagnosis. This case has been reviewed in consultation with Dr. Goldberg who concurs with the above diagnosis. MICROSCOPIC DESCRIPTION Slides are reviewed. GROSS DESCRIPTION A. Received in fixative is one container labeled with the patient's name and designated 5o'clock biopsy. The specimen consists of multiple irregular fragments of light segovia soft tissue that in aggregate measure 0.8 x 0.6 x 0.1 cm. The specimen is totally submitted in one cassette. B. Received in fixative is one container labeled with the patient's name and designated ECC. The specimen consists of multiple irregular fragments of segovia mucoid tissue that in aggregate measure 1.0 x 0.5 x 0.1 cm. The specimen is totally submitted in one cassette. / 02/06/2024 TC:5 CPT:01583h7
== END | disposition home or self-care (01) ==
LOC: LABSPEC 17:13
PROVIDERS: PCP Family Medicine; Referring Provider Obstetrics & Gynecology; Visit Provider Obstetrics & Gynecology
DX: N87.0 Mild cervical dysplasia (principal)
CPT/HCPCS: 88305; 88341; 88342

== ENCOUNTER 2024-04-17 13:01 | Day surgery (SDC) | payer OTHER, SELFPAY ==
[2024-04-13 13:36] LABS: Hematocrit 40.8 % (37-47); Hemoglobin 13.9 g/dL (12.0-15.0); Mean Corp Hgb Conc 34.1 g/dL (32-36); Mean Corpuscular Hgb 31.8 pg (27.0-32.0); Mean Corpuscular Volume 93.4 fL (81-99); Mean Platelet Vol. 9.6 fl (6.2-12.0); Platelet Count 273 K/mm3 (150-450); RBC Distribution Width CV 12.4 % (11.6-14.6); RBC Distribution Width SD 42.7 fl (35.1-43.9); Red Blood Count 4.37 M/mm3 (4.2-5.4); White Blood Count 7.8 K/mm3 (4.4-11.0)
[2024-04-13 13:45] LABS: Internal QC Validated? YES +Cl - CLEAR BKGD; Pregnancy, Urine Negative Negative
[2024-04-17] VITALS (9 sets, daily range): BP systolic 112–125; BP diastolic 60–78; PULSE 74–84; RESP 16; TEMP 35.9–36.4; O2SAT 94–100; BMI 27.5
--- NOTE | 2024-04-17 | IMM_PTH ---
PATIENT: KARINE HASSAN LOC: [facility] [place] U[place][id number] AGE/SX: 54/F ROOM: RE04/17/[address]: Dr. Aida Mena MD : 1970 BED: DIS: 04/17/2024 SPEC #: [id number] RECD: 04/19/24 11:32 STATUS: JAMILA REQ #: [id number] SEBASTIEN: 04/17/24 00:[address]: Aida Mena DEPT: IMMUNOHISTOCHEMISTRY RECD BY: Souleymane Valdez ENTERED: 04/19/24 11:33 SP TYPE: IMMUNO OTHR DR: Dr. Karine Parsons DO Tissues: B - UTERINE CERVIX LEEP Procedures: p16 (initial) KI-67 (add) PHYSICIAN & INSTITUTION [place] [address] SPECIMEN INFORMATION: Tissue Source: B- Posterior cervical lip Clinical Info: SIERRA I (cervical intraepithelial neoplasia I) Specimen Number: [id number] CPT code: 78088,32787 METHODOLOGY: Deparaffinized sections of prefer/formalin-fixed tissue or PAP/DQ stained slides are incubated with monoclonal/polyclonal antibodies/oligonucleotide probes. Localization is made via biotin free immunoperoxidase method. Appropriate controls are performed and reacted as expected. Results on target cell population are indicated in the following table: RESULTS: ANTIBODY / CLONE RESULT Block B P16 (E6H4) positive, focal patchy staining Ki-67 (30-9) positive, low These tests were developed and their performance characteristics determined by [facility]. They may not have been cleared or approved by the U.S. Food and Drug Administration. The FDA has determined that such clearance or approval is not necessary. The above immunohistochemical/dualISH markers are ordered and reviewed by the Pathologist. INTERPRETATION: B. Posterior cervical lip, leep cone: Focal mild squamous dysplasia with HPV changes. Case has been reviewed in consultation with Dr. Goldberg who concurs with the above diagnosis. IDC:[email or web address]/ 04/20/2024
--- NOTE | 2024-04-17 09:12 | HP.PCM_ITS ---
History and Physical Intake Vital Signs 02/02/2415:03 04/02/2415:59 04/02/2416:01 Height 5 ft 4 in 5 ft 4 in 5 ft 4 in Weight: 161 lb BMI 27.6 BP 109/73 Intake Visit Reasons: LEEP Allergies No Known Allergies Allergy (Verified 04/02/24 16:00) Medications ?Medication ?Instructions ?Recorded ?Confirmed ?Type venlafaxine 150 mg 150 mg PO DAILY #90 caps 09/26/20 04/02/24 Rx capsule,extended release 24 hr (Effexor XR) venlafaxine 75 mg capsule,extended 75 mg PO DAILY #90 caps 09/26/20 04/02/24 Rx release 24 hr (Effexor XR) lorazepam 0.5 mg tablet 0.5 mg PO DAILY PRN Anxiety 11/29/22 04/02/24 History metoprolol tartrate 25 mg tablet 25 mg PO BID 11/29/22 04/02/24 History multivitamin 1 tab PO DAILY 01/17/23 04/02/24 History estradiol 0.075 mg/24 hr See Rx Instructions .Route 12/16/23 04/02/24 Rx semiweekly transdermal patch .COMPLEX #8 patches progesterone micronized 100 mg 100 mg PO DAILY #90 caps 02/28/24 04/02/24 Rx capsule PFSH Medical History (Updated 02/07/24 @ 03:[address] Aida Mena MD) Wears contact lenses Wears glasses Depression Anxiety Non-smoker Hypertension History of irregular heartbeat Low grade squamous intraepithelial lesion (LGSIL) History of depression History of breast lump Seasonal allergies Surgical History History of bunionectomy Family History Father Anxiety Cancer pancreatic, liver DepressionAunt ArthritisUnknown Bleeding disorderGrandmother CancerBrother DepressionAunt DepressionMother Osteoporosis Social History Smoking Status: Never smoker alcohol intake: never substance use type: does not use caffeine: Yes what type of physical activity do you participate in: walking seatbelt use: always do you feel safe at home: Yes additional social history: - Works for [employer] HPI LEEP Details: EDY HASSAN is a 53 year old who presents for persistent cervical dysplasia for the last 6+ years. She has had low to intermediate grade changes that have not resolved. After persistence the recommendation is for continued expectant management versus excisional procedure, the patient has decided to proceed with excisional procedure. Female Reproductive History Menopausal Symptoms: No night sweats History 2 Elective abortions Hx Para 1 Spontaneous abortions Hx # Term Pregnancies Ectopic pregnancies Hx # Pregnancies Multiple births # of living children Past Pregnancies Del. Date Name GA/Weeks Outcome Route Bth Weight Infant Gen Labor Lgth Anesthesia Del Locatn Provider FOB Unknown 2005 [place] live - full term Male ROS Const Constitutional: Denies fatigue, night sweats, weight gain or weight loss ENT ENT: Reports system reviewed and no additional complaints, except as documented Cardio Card: Denies chest pain Resp Resp: Denies cough or dyspnea GI GI: Reports as per HPI; Denies abdominal pain, constipation, nausea or vomiting : Denies nipple discharge, urinary frequency, urinary incontinence, urinary hesitancy, urinary urgency, vaginal discharge, vaginal dryness, vaginal odor or vaginal pruritus Musc Musc: Denies arthralgias, back pain or muscle weakness Skin Skin/Breast: Denies alopecia, change in hair, dry skin, breast mass, breast pain, breast skin changes or nipple discharge Neuro Neuro: Reports system reviewed and no additional complaints, except as documented Psych Psych: Reports system reviewed and no additional complaints, except as documented Endo Endo: Denies cold intolerance, excessive sweating, heat intolerance or polydipsia Rizwan/Lymph Hematologic/Lymphatic: Denies easy bleeding, Denies easy bruising and Denies lymphadenopathy Exam Const General: cooperative, healthy appearing, comfortable and no acute distress Orientation: alert [facility] Head: normal to inspection and normocephalic Ears: hearing grossly normal bilaterally and external ears normal Nose: external nose normal and nares normal Face and sinus: normal facial exam Neck Neck: normal visual inspection and no lymphadenopathy Thyroid: thyroid normal Chest Chest palpation & inspection: normal inspection of the chest Resp Effort & Inspection: normal respiratory effort Auscultation: clear to auscultation bilaterally Cardio Rate: regular rate Rhythm: regular rhythm Heart Sounds: S1 normal and S2 normal GI Inspection: normal to inspection and non-distended Palpation: soft and no hepatosplenomegaly Musc Other: gross motor intact no deficits, full bilateral strength Skin General: no rashes or lesions noted Neuro General: patient alert, patient awake, moves all extremities and no focal motor deficits Motor: muscle tone normal throughout Extrem General: normal to inspection and no pedal edema Psych Appearance: grossly normal Mental Status: mental status grossly normal Affect: normal affect Speech and Movement: speech and movement normal Coding Level of Care Code No Charge Diagnoses SIERRA I (cervical intraepithelial neoplasia I) N87.0 Assessment and Plan Assessment and Plan (1) SIERRA I (cervical intraepithelial neoplasia I): Status: Chronic Comment: discussed persistent CIN1 x 6 years if desires treatment recommend LEEP. colp done with biopsies 02/19. patient's undergoing treatment for prostate cancer. 2018 colp, 2019 pap hpv 11/15 CINI colp, repeat pap and hpv in 1 year; [place] 0 09/2020 mild changes repeat PAP/HPV 09/2021 Plan Problem list updated and treatment plans were reviewed with the patient and relevant educational handouts given. See problem list details for specific plan information. After discussing the patient's diagnosis and treatment plan options, patient wishes to proceed with surgical management. I have discussed with the patient the risks, benefits, and alternatives of the procedure which include but are not limited to risks of anesthesia, bleeding, infection, possible damage to bowel, bladder, or surrounding vasculature which could lead to additional surgery to evaluate any complications. Patient agrees to procedure and wishes to proceed. ACOG/uptodate references given for additional information regarding procedure. UPDATE- I have seen the patient and performed any clinically relevant updates to the history and physical exam. Aida Mena MD
[2024-04-17 13:48] LABS: Internal QC Validated? YES +Cl - CLEAR BKGD; Pregnancy, Urine Negative Negative
[2024-04-17] MEDS: Lactated Ringers 1,000 ML 15 ML IV (13:59)
--- NOTE | 2024-04-17 14:19 | PCM.PRE.AN2 ---
ASA Classification* ASA Classification ASA Classification: 2 Assessment & Plan Anesthesia* Anesthesia Assessment Anesthesia Assessment: Discussed sedation and/or anesthesia options, risks, benefits, and alternatives with patient/parents/legal guardian/POA. Questions invited. The patient/parents/legal guardian/POA seems to understand and agrees to proceed with anesthesia plan. Reviewed the physical assessment, medical history, allergy history and patient home medications list prior to surgery/procedure/anesthetic and documented any changes. Performed airway and anesthesia risk assessments. Anesthesia Type Anesthesia Type: MAC History Source History Obtained from:: Patient and Chart Anesthesia Focused Assessment* Temperature: 97.5 F Pulse Rate: 83 Blood Pressure: 121/74 Respiratory Rate: 16 Pulse Ox: 100 Oxygen Delivery Method: Room Air Airway Assessment Mouth opens: >3 cm Mallampati Score: I Teeth Condition: Intact Neck Range of motion (ROM): Full ROM Focused Labs Anesthesia Preop lab: CBC WBC 7.8 K/mm3 (4.4-11.0) 04/13/24 12:36 RBC 4.37 M/mm3 (4.2-5.4) 04/13/24 12:36 Hgb 13.9 g/dL (12.0-15.0) 04/13/24 12:36 Hct 40.8 % (37-47) 04/13/24 12:36 Plt Count 273 K/mm3 (150-450) 04/13/24 12:36 CHEMISTRY Glucose 87 mg/dL (70-110) 12/10/15 09:10 TSH 1.68 uIU/mL (0.358-3.74) 12/14/22 12:44 COAG Urine Test Negative Negative 04/17/24 13:35 Tst Clinic Negative 01/13/23 15:32 Pre-Assessment Diagnosis/Proposed Procedure Planned Operative Procedure(s): LEEP CONE Anesthesia History Anesthesia History - financial reporting director: Anesthesia History - financial reporting director Hx Hospitalization No 04/10/24 10:04 Any Problems With Anesthesia Yes: NAUSEA 04/10/24 10:04 Cholinesterase deficiency No 04/10/24 10:04 You/Your Family Experience No 04/10/24 10:04 fever (hyperthermia) with Relationship Recent Exposure to Contagious No 04/17/24 13:45 Disease Does patient have nerve No 04/10/24 10:04 stimulator Patient instructed to have device shut off --Does patient have Pacemaker No 04/17/24 13:45 or ICD? When Was Last Pacemaker Check QUESTION #4 FULL TEXT: You/Your Family Experience fever (hyperthermia) with Anesthesia Last Oral Intake Last Oral intake: Last Oral Intake NPO since 07:30 04/17/24 13:45 Meds taken in AM with sips of Yes 04/17/24 13:45 water? Meds patient instructed to take am of surgery Any additional information?: Yes Meds taken in AM with sips of water?: Yes PONV PONV - financial reporting director: PONV - financial reporting director Female Yes 04/10/24 10:04 HX of Motion Sickness Yes 04/10/24 10:04 HX of N/V After Surgery Yes 04/10/24 10:04 Non-Smoker Yes 04/10/24 10:04 Duration of Surgery greater No 04/10/24 10:04 than 60 minutes Number of Risk Factors 4 04/10/24 10:04 PONV Score Severe Risk 04/10/24 10:04 Height & Weight Height & Weight: Anesthesia: Height & Weight Height 5 ft 4 in 04/17/24 13:45 Weight: 72.7 kg 04/17/24 13:45 Body Mass Index (BMI) 27.5 04/17/24 13:45 Respiratory Assessment Respiratory Assessment - financial reporting director: Respiratory Tract Infection Hx - financial reporting director Hx Respiratory Tract Infection No 04/10/24 10:04 STOP Sleep Apnea STOP Sleep Apnea - financial reporting director: STOP Sleep Apnea - financial reporting director Hx Hypertension Yes: CONTROLLED ON MED 04/10/24 10:04 Hx Sleep Apnea No 04/10/24 10:04 CPAP BIPAP Do you snore loudly (louder No 04/10/24 10:04 than talking or can be heard Do you often feel tired/ No 04/10/24 10:04 fatigued/ sleepy during daytime? Has anyone observed you stop No 04/10/24 10:04 breathing during sleep? STOP Results Negative 04/10/24 10:04 QUESTION #5 FULL TEXT : Do you snore loudly (louder than talking or can be heard through closed doors)? Tobacco Use History Tobacco Use History - financial reporting director: Tobacco Use History - financial reporting director Tobacco Use Smoking Status Never smoker 04/10/24 10:04 Hx Tobacco Use No 04/10/24 10:04 Years Smoking Packs Smoked per Day Smoking Cessation Date was within the last 15 years Hx Smoking Cessation Date Hx Smoking Cessation Counseling Hematologic Medial History Hematologic Hx - financial reporting director: Hematologic Medical Hx - manager services Hx of Blood Transfusion No 04/10/24 10:04 Hx of Transfusion in last 3 No 04/10/24 10:04 Months Date of Last Transfusion (if within last 3 months) Ever experience any problems No 04/10/24 10:04 with transfusion(s)? Specify any problems Hx of Preganancy in last 3 N/A 04/10/24 10:04 Months Nurse Filling Out Transfusion NBUCHER 04/10/24 10:04 & Questions: Date: 04/10/24 04/10/24 10:04 Time: 10:06 04/10/24 10:04 Patient unable to answer at this time (ie. confused, unrespo /Reproduction History /Reproductive History - financial reporting director: /Reproductive Hx- financial reporting director Hx Now Gestational Age (in weeks): EDC: Hx Hx Para Hx Section SAB No 04/10/24 10:04 Active Medications Active Medications: Current Medications Generic Name Dose Route Start Last Admin Trade Name Freq PRN Reason Stop Dose Admin Lactated Ringer's 1,000 mls @ 15 mls/hr 04/17/24 13:15 04/17/24 13:59 IV 15 mls/hr .Q48H MATHIEU Administration PFSH Medical History Wears contact lenses Wears glasses Depression Anxiety Non-smoker Hypertension History of irregular heartbeat Low grade squamous intraepithelial lesion (LGSIL) History of depression History of breast lump Seasonal allergies Home Medications ?Medication ?Instructions ?Recorded ?Last Taken ?Type venlafaxine 150 mg 150 mg PO DAILY #90 caps 09/26/20 Unknown Rx capsule,extended release 24 hr (Effexor XR) venlafaxine 75 mg capsule,extended 75 mg PO DAILY #90 caps 09/26/20 Unknown Rx release 24 hr (Effexor XR) lorazepam 0.5 mg tablet 0.5 mg PO DAILY PRN Anxiety 11/29/22 04/17/24 History metoprolol tartrate 25 mg tablet 25 mg PO BID 11/29/22 04/17/24 History multivitamin 1 tab PO DAILY 01/17/23 Unknown History estradiol 0.075 mg/24 hr See Rx Instructions .Route 12/16/23 Unknown Rx semiweekly transdermal patch .COMPLEX #8 patches progesterone micronized 100 mg 100 mg PO DAILY #90 caps 02/28/24 Unknown Rx capsule Allergy/AdvReac Type Severity Reaction Status Date / Time No Known Allergies Allergy Verified 04/10/24 10:02 Family History Father Anxiety Cancer pancreatic, liver Depression Aunt Arthritis Unknown Bleeding disorder Grandmother Cancer Brother Depression Aunt Depression Mother Osteoporosis Surgical History History of colposcopy History of colonoscopy History of bunionectomy Social History Smoking Status: Never smoker alcohol intake: never substance use type: does not use caffeine: Yes what type of physical activity do you participate in: walking seatbelt use: always do you feel safe at home: Yes additional social history: - Works for [employer] Review of Systems (Anesthesia) ROS Narrative System reviewed and no additional complaints, except as documented.
--- NOTE | 2024-04-17 14:25 | CONE_PTH ---
PATIENT: KARINE HASSAN LOC: [facility] U#:[id number] AGE/SX: 54/F ROOM: RE04/17/[address]: Dr. Aida Mena MD : 1970 BED: DIS: 04/17/2024 SPEC #: [id number] RECD: 04/17/24 16:48 STATUS: JAMILA ANDRES #: [id number] SEBASTIEN: 04/17/24 14:[address]: Aida Mena DEPT: SURGICAL PATHOLOGY RECD BY: Mami Verdin ENTERED: 04/18/24 08:54 SP TYPE: Leep Cone CYRUS DR: Dr. Karine Parsons DO Tissues: A - UTERINE CERVIX LEEP B - UTERINE CERVIX LEEP C - Endometrial cavity Procedures: Surgery Specimen Level IV Surgery Specimen Level V HEADER OPERATION: Leep cone PRE-OP DIAGNOSIS: SIERRA I (cervical intraepithelial neoplasia I) TISSUE SUBMITTED: A- Anterior cervical lip, B- Posterior cervical lip, C- Endocervical curettings MICROSCOPIC DIAGNOSIS A. Anterior cervical lip, leep colonization: A piece of ectocervical mucosa, negative for dysplasia. Focal parakeratosis. B. 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 Focal parakeratosis. Resection margins are free of dysplastic changes. See comment. C. Endocervical curettings: Fragments of benign ectocervical and endocervical epithelium, negative for dysplasia. SJ/mr 04/19/2024 COMMENT B. Immunohistochemistry ([id number]) for surrogate HPV marker (p16) supports the above diagnosis. Please make reference to previous specimen [id number] cervix, 5o'clock, biopsy with diagnosis of mild squamous dysplasia with HPV changes. Case has been reviewed in consultation with Dr. Goldberg who concurs with the above diagnosis. IDC:AM. MICROSCOPIC DESCRIPTION Slides are reviewed. GROSS DESCRIPTION A. Received in fixative is one container labeled with the patient's name and designated Anterior cervical lip. The specimen consists of a piece of [place] indurated tissue measuring 1.2 x 1.2 x 0.3cm. No mucosal lesion is identified. Non-mucosal surface is inked black. The specimen is serially sectioned and submitted entirely in one cassette. B. Received in fixative is one container labeled with the patient's name and designated Posterior cervical lip. The specimen consists of a piece of [place] indurated tissue measuring 2.5 x 1.0 x 0.5cm. No mucosal lesion is identified. Non-mucosal surface is inked black. The specimen is inked, serially sectioned and submitted entirely in three cassettes. C. Received in fixative is one container labeled with the patient's name and designated Endometrial curettings. The specimen consists of multiple fragments of [place] mucoid tissue that in aggregate measure 1.0 x 0.2 x 0.1 cm. The specimen is totally submitted in one cassette. SJ.mr 04/18/2024 TC:5 CPT:09052,69761f5
[2024-04-17] MEDS: FERRIC SUBSULFATE 8 GM SOLN (14:55)
[2024-04-17] MEDS: Lidocaine 1% (20 ml mdv) 20 ML Vial (14:55)
--- NOTE | 2024-04-17 14:58 | PCM.OPRPT ---
Problems Associated Problem List Diagnoses (1) SIERRA I (cervical intraepithelial neoplasia I): Report of Operation Date of Procedure: 04/17/24 Pre-Operative Diagnosis: see problem list Post-Operative Diagnosis: same Surgery/Procedure Performed:: LEEP procedure Description of Surgical Findings:: grossly nl cervix Surgeon: Aida Mena advanced manufacturing vice president: None Type of Anesthesia: General and Local Special Medications: monsels paste Specimen's removed: cervix ecc Drains: none Estimated Blood Loss (mL): 50 Fluids Replaced: crystalloid Description of Procedure: Using a loop electrode the outer part of the cervix was removed including the squamocolumnar junction. Endocervical curettings were taken and the base of the cervix was cauterized around the borders and the base to obtain excellent hemostasis. lidocaine injected as a paracervical block. Monsel's paste was placed and patient was awoken and taken recovery in stable condition. Grafts/Implants Used: none Procedure Start Time: 14:43 Procedure Stop Time: 14:56 Complications none Admit VTE Documentation VTE Present on Admission: No VTE Mechan Device Prophylaxis: SCD's Multi Select Codes Urinary/Genital Urinary/Genital CPT Codes: 50682 LEEP
--- NOTE | 2024-04-17 15:02 | PCM.DC ---
Discharge Instructions Diet Discharge Diet: No restrictions Activity Discharge Activity: Return to Normal Activity and May Not Drive (while taking narcotic pain medications.) May resume sexual activity in: 4 weeks (Nothing in the vagina for 4 weeks.) Dressing / Incision Call your doctor if you observe: Fever of 101 or Higher and Using more than 1 pad per hour Follow Up Care Please Follow Up With: Aida Mena MD When: Call [phone] for follow-up appointment. Test Results: Test results from this visit will be discussed in further detail at your follow-up appointment, if applicable. Discharge Plan Admission Attending Provider: Aida Mena Primary Care Provider: Karine Parsons Instructions Print Language: Filipino Discharge Orders/Prescriptions Prescriptions: No Action venlafaxine [Effexor XR] 75 mg capsule,extended release 24hr 75 mg PO DAILY Qty: 90 12RF Rx Instructions: take daily with the 150 mg for 225mg total daily venlafaxine [Effexor XR] 150 mg capsule,extended release 24hr 150 mg PO DAILY Qty: 90 12RF lorazepam 0.5 mg tablet 0.5 mg PO DAILY PRN (Reason: Anxiety) metoprolol tartrate 25 mg tablet 25 mg PO BID estradiol 0.075 mg/24 hr patch semiweekly See Rx Instructions .ROUTE .COMPLEX Qty: 8 2RF Dose Instruction: APPLY ONE PATCH TRANSDERMALLY ALTERNATING ONE PATCH ON FOR 3 DAYS THEN ONE PATCH ON FOR 4 DAYS Rx Instructions: APPLY ONE PATCH TRANSDERMALLY ALTERNATING ONE PATCH ON FOR 3 DAYS THEN ONE PATCH ON FOR 4 DAYS multivitamin Tablet 1 tab PO DAILY progesterone micronized 100 mg capsule 100 mg PO DAILY Qty: 90 4RF Referrals / Follow Up: Karine Parsons DO [Primary Care Provider] - Disposition Disposition (needs filled in before D/C Order can be placed): Home, Self Care
--- NOTE | 2024-04-17 15:07 | PCM.POST.ANE ---
Anesthesia: Postop Eval I Current Vital Signs Temperature: 97.3 F Pulse Rate: 84 Blood Pressure: 118/72 Respiratory Rate: 16 Pulse Ox: 98 Oxygen Delivery Method: Room Air Assessment Airway patent: Yes Spontaneous unlabored respirations: Yes Mental status: Awake and Calm nausea: No Vomiting: No Anesthesia Complication: No Fluid Hydration Crystalloid volume administer (ml): 600 Total IV fluid infused: 600 Progress Note Anesthesia document: Postop Eval 1 completed: Yes
--- NOTE | 2024-04-17 18:10 | POSTOPAN2_ITS ---
Anesthesia Postop Eval I Sum Postop Eval Completion status Anesthesia document: Postop Eval 1 completed: Yes Anesthesia Postop Eval I Summary Anesthesia Postop Eval I Summary: Anesthesia Postop Eval I: Assessment Summary Airway patent Yes 04/17/24 15:07 GENERAL EDUCATION [email or web address].[email or web address] Spontaneous unlabored Yes 04/17/24 15:07 GENERAL EDUCATION PROFESSOR.[email or web address] respirations Mental status Awake,Calm 04/17/24 15:07 GENERAL EDUCATION PROFESSOR.[email or web address] nausea No 04/17/24 15:07 GENERAL EDUCATION PROFESSOR.[email or web address] Vomiting No 04/17/24 15:07 GENERAL EDUCATION PROFESSORCHARMAINE Anesthesia Postop Eval I: Fluid Summary Crystalloid volume administer 600 04/17/24 15:07 GENERAL EDUCATION PROFESSOR.SAUNDRA (ml) Colloids volume administered ( ml) Blood Product volume administered (ml) Total IV fluid infused 600 04/17/24 15:07 LUIS ARMANDO Anesthesia Postop Eval I: Summary Notes Anesthesia Complication No 04/17/24 15:07 LUIS ARMANDO Anesthesia Complication Comment: Post-operative progress note Anesthesia: Postop Eval II Evaluation Mental status: Awake Pain Level: 0 nausea: No Vomiting: No
--- NOTE | 2024-04-17 18:10 | PCM.POSTANE2 ---
Anesthesia Postop Eval I Sum Postop Eval Completion status Anesthesia document: Postop Eval 1 completed: Yes Anesthesia Postop Eval I Summary Anesthesia Postop Eval I Summary: Anesthesia Postop Eval I: Assessment Summary Airway patent Yes 04/17/24 15:07 MOVIE THEATER USHER.[email or web address] Spontaneous unlabored Yes 04/17/24 15:07 MOVIE THEATER [email or web address].[email or web address] respirations Mental status Awake,Calm 04/17/24 15:07 MOVIE THEATER USHER.[email or web address] nausea No 04/17/24 15:07 MOVIE THEATER USHER.[email or web address] Vomiting No 04/17/24 15:07 MOVIE THEATER USHERCHARMAINE Anesthesia Postop Eval I: Fluid Summary Crystalloid volume administer 600 04/17/24 15:07 MOVIE THEATER USHER.[email or web address] (ml) Colloids volume administered ( ml) Blood Product volume administered (ml) Total IV fluid infused 600 04/17/24 15:07 LUIS ARMANDO Anesthesia Postop Eval I: Summary Notes Anesthesia Complication No 04/17/24 15:07 LUIS ARMANDO Anesthesia Complication Comment: Post-operative progress note Anesthesia: Postop Eval II Evaluation Mental status: Awake Pain Level: 0 nausea: No Vomiting: No
== END 2024-04-17 16:09 | disposition home or self-care (01) ==
LOC: SDC 13:01 → AC 13:04
PROVIDERS: Anesthesiology; PCP Family Medicine; Referring Provider Obstetrics & Gynecology; Visit Provider Obstetrics & Gynecology
PROC: 0UBC7ZZ Excision of Cervix, Via Natural or Artificial Opening (ICD-10-PCS; CPT 57522; principal; 2024-04-17 14:10)
DX: N87.0 Mild cervical dysplasia (principal); I10 Essential (primary) hypertension; R23.4 Changes in skin texture; Z79.899 Other long term (current) drug therapy
CPT/HCPCS: 57522; 36415; 81025; 85027; 86850; 86900; 86901; 88305; 88307; 88341; 88342; J7120; J2405

== ENCOUNTER → 2024-11-02 | Outpatient (CLI) | payer OTHER, SELFPAY ==
--- NOTE | 2024-11-02 08:00 | BI_ITS ---
PROCEDURE: SCRN MAMM (CAD)W/GUSTAVO BILAT REASON FOR EXAM: F, Age 54 y/o, presents for annual screening mammogram. Family history of breast cancer in paternal aunt in her 70s. TECHNIQUE: Bilateral screening digital breast tomosynthesis with 2D and 3D images. Computer aided detection. COMPARISON: 11/02/2023, 10/29/2022 FINDINGS: The breasts are heterogeneously dense which may obscure small masses. The mammogram demonstrates that the patient has dense breasts. Supplemental screening with whole breast ultrasound or MRI may be considered for further evaluation. No suspicious masses, areas of developing architectural distortion, or suspicious calcifications. BI/SCRN MAMM (CAD)W/GUSTAVO BILAT IMPRESSION: There is no mammographic evidence of malignancy. BI-RADS 1: NEGATIVE. RECOMMEND ANNUAL MAMMOGRAPHIC SCREENING. Follow-up code: Routine Follow-up The patient will be notified of the results by letter. Reading Location: [id number]
== END | disposition home or self-care (01) ==
LOC: OPBI 07:56
PROVIDERS: PCP Family Medicine; Referring Provider Obstetrics & Gynecology; Visit Provider Obstetrics & Gynecology
DX: Z12.31 Encounter for screening mammogram for malignant neoplasm of breast (principal); Z80.3 Family history of malignant neoplasm of breast
CPT/HCPCS: 77063; 77067

== ENCOUNTER → 2024-12-17 | Outpatient (CLI) | payer OTHER, SELFPAY ==
[2024-12-21 14:08] LABS: HPV APTIMA, High Risk Negative (Negative)
== END | disposition home or self-care (01) ==
LOC: LABSPEC 15:39
PROVIDERS: PCP Family Medicine; Referring Provider Obstetrics & Gynecology; Visit Provider Obstetrics & Gynecology
DX: Z78.0 Asymptomatic menopausal state (principal)
CPT/HCPCS: 87624; 88175; G0145

== ENCOUNTER → 2025-03-12 | Outpatient (CLI) | payer OTHER, SELFPAY ==
--- NOTE | 2025-03-12 13:12 | RAD_ITS ---
EXAM: XR Right Foot Complete, 3 or More Views CLINICAL INDICATION: PAIN TECHNIQUE: Frontal, lateral and oblique views of the right foot. COMPARISON: No relevant prior studies available. FINDINGS: BONES/JOINTS: Mild degenerative changes of the intertarsal joints. No acute fracture. No dislocation. SOFT TISSUES: Soft tissue swelling. RAD/Foot min 3 Views IMPRESSION: Degenerative changes as above. Reading Location: [facility]
--- NOTE | 2025-03-12 13:12 | RAD_ITS ---
EXAM: XR Right Foot Complete, 3 or More Views CLINICAL INDICATION: PAIN TECHNIQUE: Frontal, lateral and oblique views of the right foot. COMPARISON: No relevant prior studies available. FINDINGS: BONES/JOINTS: Mild degenerative changes of the intertarsal joints. No acute fracture. No dislocation. SOFT TISSUES: Soft tissue swelling. RAD/Foot min 3 Views IMPRESSION: Degenerative changes as above. Reading Location[facility]
--- OUTSIDE RECORDS SUMMARY | 2025-03-12 21:36 | XMS RPT_ITS | CCD ---
Author Organization [facility] CliniSyil Care Team Providers Care Cpas Name Role Phone Aida Mena MD Unavailable [phone] Karine Parsons Primary Care Provider [phone] Dr. Karine Parsons Referring Provider [phone] Aida Mena Attending Provider [phone] Dr. Yadira Hidalgo Attending Provider Dr. Karine Parsons Primary Care Provider [phone] Tamara Ellis Attending Provider Unavailable Dr. Karine Parsons Referring Provider [phone] Aida Mena Attending Provider [phone] Dr. Karine Parsons DO Primary Care Provider Dr. Karine Parsons DO Referring Provider [phone] Jamari Stone Attending Provider Jamari Stone Referring Provider [phone] Aida Mena MD Attending Provider Dr. Aida Mena MD Referring Provider [phone] Malys, Karine Primary Care Unavailable Jamari Stone Attending Unavailable Malys, Karine Referring Unavailable Malys, Karine Primary Care Unavailable Aida Mena Attending Unavailable Aida Mena Referring Unavailable Jamari Stnoe Attending Unavailable Jamari Stone Referring Unavailable Malys, Karine Primary Care Unavailable Malys, Karine Primary Care Unavailable Malys, Karine Attending Unavailable Malys, Karine Referring Unavailable Malys, Karine Attending Unavailable Malys, Karine Referring Unavailable Malys, Karine Primary Care Unavailable Aida Mena Attending Unavailable Marcanthony, Aida Referring Unavailable Malys, Karine Primary Care Unavailable Marcanthony, Aida Attending Unavailable Marcanthony, Aida Referring Unavailable Malys, Karine Primary Care Unavailable Jamari Stone Attending Unavailable Malys, Karine Referring Unavailable Malys, Karine Primary Care Unavailable Malys, Karine Primary Care Unavailable Marcanthony, Aida Attending Unavailable Marcanthony, Aida Referring Unavailable Marcanthony, Aida Consulting Unavailable Marcanthony, Aida Attending Unavailable Malys, Karine Referring Unavailable Malys, Karine Primary Care Unavailable Marcanthony, Aida Attending Unavailable Malys, Karine Referring Unavailable Malys, Karine Primary Care Unavailable Malys, Karine Primary Care Unavailable Marcanthony, Aida Attending Unavailable Malys, Karine Referring Unavailable Malys, Karine Primary Care Unavailable Marcanthony, Aida Attending Unavailable Malys, Karine Referring Unavailable Medications Current Medications Medication Drug Class(es) Dates Sig (Normalized) Sig (Original) 84 hr estradiol 0.53131 mg/hr transdermal system (20 sources) Estrogen Start: 05-28-2024 End: 12-17-2024 Estradiol 0.075 mg/24 hr patch semiweekly Active 1 NMA TD TWICE A WEEK December 17, 2024 2:00pm Start: 12-16-2023 End: 05-28-2024 Estradiol 0.075 mg/24 hr pat ch semiweekly Discontinued 0 .ROUTE .COMPLEX December 16, 2023 2:38pm May 28, 2024 8:03am APPLY ONE PATCH TRANSDERMALLY ALTERNATING ONE PATCH ON FOR 3 DAYS THEN ONE PATCH ON FOR 4 DAYS Start: 05-20-2023 End: 12-16-2023 Estradiol 0.05 mg/24 hr patc h semiweekly Discontinued 0 .ROUTE .COMPLEX November 09, 2023 11:10am December 16, 2023 2:41pm APPLY ONE PATCH TRANSDERMALLY ALTERNATING ONE PATCH ON FOR 3 DAYS THEN ONE PATCH ON FOR 4 DAYS Start: 05-20-2023 End: 10-05-2023 Estradiol Active 0 .ROUTE .C OMPLEX October 05, 2023 2:08pm APPLY ONE PATCH TRANSDERMALLY ALTERNATING ONE PATCH ON FOR 3 DAYS THEN ONE PATCH ON FOR 4 DAYS Start: 12-14-2022 End: 05-20-2023 apply 1 dose transdermal route two times weekly, then apply 1 dose transdermal route once Estradiol 0.05 mg/24 hr patch semiweekly Discontinued 1 NMA TD TWICE A WEEK December 14, 2022 12:00am May 20, 2023 4:53pm apply 1 patch for 3 days alternating with 1 patch for 4 days each week Start: 12-14-2022 End: 05-20-2023 apply 1 dose transdermal route two times weekly, then apply 1 dose transdermal route once Estradiol Discontinued 1 PATCH TD TWICE A WEEK December 14, 2022 12:00am May 20, 2023 4:53pm apply 1 patch for 3 days alternating with 1 patch for 4 days each week LORazepam 0.5 mg oral tablet (4 sources) Benzodiazepine Start: 11-29-2022 take 1 tablet by mouth once daily as needed for anxiety Lorazepam 0.5 mg tablet Active 0.5 mg PO DAILY as needed for Anxiety November 29, 2022 12:00am metoprolol tartrate 25 mg oral tablet (4 sources) beta-Adrenergic Og Start: 11-29-2022 take 1 tablet by mouth twice daily Metoprolol Tartrate 25 mg tablet Active 25 mg PO TWICE A DAY November 29, 2022 12:00am Start: 11-29-2022 take 25 mg by mouth once daily Metoprolol Tartrate Active 25 MG PO DAILY November 29, 2022 12:00am Multivitamin preparation (1 source) Start: 01-17-2023 take 1 tablet by mouth once daily Multivitamin Active 1 TABLET PO DAILY January 17, 2023 12:00am Multivitamin Tablet (2 sources) Start: 01-17-2023 Multivitamin T ablet Active 1 {tbl} PO DAILY January 17, 2023 12:00am progesterone 100 mg oral capsule (12 sources) Progesterone Start: 12-14-2022 End: 12-17-2024 take 1 capsule by mouth once daily Progesterone Micronized 100 mg capsule Active 100 mg PO DAILY December 17, 2024 2:00pm Completed/Discontinued Medications Medication Drug Class(es) Dates Sig (Normalized) Sig (Original) azithromycin 250 mg oral tablet (12 sources) Macrolide Antimicrobial Start: 02-07-2015 End: 09-25-2015 take 2 tablets by mouth once, then take 1 tablet by mouth once daily, then take 2-5 tablets by mouth AZITHROMYCIN 250 MG TABS 2 PO on day 1 then 1 PO daily on days 2-5 AZITHROMYCIN [id number] Karine Parsons DO ciprofloxacin 500 mg oral tablet (4 sources) Quinolone Antimicrobial Start: 12-23-2015 End: 07-19-2017 take 1 tablet by mouth twice daily CIPROFLOXACIN HCL 500 MG TABS 1 po twice daily x 5 days CIPROFLOXACIN HCL [id number] Aida Mena MD Norgestimate-Ethiny l Estradiol (20 sources) Progestin, Estrogen Start: 11-24-2021 End: 12-14-2022 Norgestimate-Ethin yl Estradiol (Tri-Sprintec (28)) 0.18/0.215/0.25 mg-35 mcg (28) tablet Discontinued 1 {tbl} PO DAILY November 24, 2021 4:03pm December 14, 2022 11:56am Start: 11-24-2021 End: 12-14-2022 take 1 tablet by mouth once daily Norgestimate-Ethinyl Estradiol (Tri-Sprintec (28)) 0.18/0.215/0.25 mg-35 mcg (28) tablet Discontinued 1 TABLET PO DAILY November 24, 2021 4:03pm December 14, 2022 11:56am Start: 11-24-2021 take 1 tablet by hima th once daily Norgestimate-Ethinyl Estradiol (Tri-Sprintec (28)) 0.18/0.215/0.25 mg-35 mcg (28) tablet Active 1 TABLET PO DAILY November 24, 2021 3:03pm Start: 11-24-2021 take 1 tablet by hima th once daily Norgestimate-Ethinyl Estradiol (Tri-Sprintec (28)) 0.18/0.215/0.25 mg-35 mcg (28) tablet Active 1 TABLET PO DAILY November 24, 2021 4:03pm Start: 09-26-2020 End: 11-24-2021 Norgestimate-Ethinyl Estradi ol (Tri-Sprintec (28)) 0.18/0.215/0.25 mg-35 mcg (28) tablet Discontinued 1 {tbl} PO DAILY September 26, 2020 2:05pm November 24, 2021 4:03pm Start: 09-26-2020 End: 11-24-2021 take 1 tablet by mouth once daily Norgestimate-Ethinyl Estradiol (Tri-Sprintec (28)) 0.18/0.215/0.25 mg-35 mcg (28) tablet Discontinued 1 TABLET PO DAILY September 26, 2020 1:05pm November 24, 2021 3:03pm Start: 09-26-2020 End: 11-24-2021 take 1 tablet by mouth once daily Norgestimate-Ethinyl Estradiol (Tri-Sprintec (28)) 0.18/0.215/0.25 mg-35 mcg (28) tablet Discontinued 1 TABLET PO DAILY September 26, 2020 2:05pm November 24, 2021 4:03pm Start: 09-26-2020 End: 09-26-2020 Norgestimate-Ethinyl Estradi ol (Tri-Sprintec (28)) 0.18/0.215/0.25 mg-35 mcg (28) tablet Discontinued 1 {tbl} PO DAILY September 26, 2020 2:04pm September 26, 2020 2:14pm Start: 09-26-2020 End: 09-26-2020 take 1 tablet by mouth once daily Norgestimate-Ethinyl Estradiol (Tri-Sprintec (28)) 0.18/0.215/0.25 mg-35 mcg (28) tablet Discontinued 1 TABLET PO DAILY September 26, 2020 1:04pm September 26, 2020 1:14pm Start: 09-26-2020 End: 09-26-2020 take 1 tablet by mouth once daily Norgestimate-Ethinyl Estradiol (Tri-Sprintec (28)) 0.18/0.215/0.25 mg-35 mcg (28) tablet Discontinued 1 TABLET PO DAILY September 26, 2020 2:04pm September 26, 2020 2:14pm Start: 09-26-2020 End: 09-26-2020 take 1 tablet by mouth once daily Norgestimate-Ethinyl Estradiol (Tri-Sprintec (28)) 0.18/0.215/0.25 mg-35 mcg (28) tablet Discontinued 1 TABLET PO DAILY September 26, 2020 12:44pm September 26, 2020 2:04pm Start: 09-26-2020 End: 09-26-2020 Norgestimate-Ethinyl Estradi ol (Tri-Sprintec (28)) 0.18/0.215/0.25 mg-35 mcg (28) tablet Discontinued 1 {tbl} PO DAILY September 26, 2020 1:00am September 26, 2020 2:04pm Start: 09-26-2020 End: 09-26-2020 take 1 tablet by mouth once daily Norgestimate-Ethinyl Estradiol (Tri-Sprintec (28)) 0.18/0.215/0.25 mg-35 mcg (28) tablet Discontinued 1 TABLET PO DAILY September 26, 2020 1:00am September 26, 2020 2:04pm Start: 09-26-2020 End: 09-26-2020 take 1 tablet by mouth once daily Norgestimate-Ethinyl Estradiol (Tri-Sprintec (28)) 0.18/0.215/0.25 mg-35 mcg (28) tablet Discontinued 1 TABLET PO DAILY September 26, 2020 12:00am September 26, 2020 1:04pm fluconazole 150 mg oral tablet (4 sources) Azole Antifungal Start: 12-23-2015 End: 07-19-2017 FLUCONAZOLE 150 MG TABS 1 po x 1 dose for yeast infection FLUCONAZOLE [id number] Aida Mena MD FLUoxetine 40 mg oral capsule (8 sources) Serotonin Reuptake Inhibitor Start: 10-03-2014 End: 01-27-2015 take 1 capsule by mouth once daily FLUOXETINE HCL 40 MG CAPS 1 po daily FLUOXETINE HCL [id number] Karine Parsons DO End: 10-03-2014 take 1 capsule by mouth once daily FLUOXETINE HCL 20 MG CAPS PO QD FLUOXETINE HCL [id number] Karine Parsons DO fluticasone propionate 0.05 mg/actuat metered dose nasal spray (4 sources) Corticosteroid End: 07-19-2017 FLUTICASONE PROPIONATE 50 MCG/ACT SUSP one spray Twice daily FLUTICASONE PROPIONATE [id number] Karine A Malys, DO loratadine 10 mg oral capsule (2 sources) take 1 capsule by mouth once daily CLARITIN 10 MG CAPS PO QD LORATADINE [id number] Karine Parsons DO metroNIDAZOLE 500 mg oral tablet (8 sources) Nitroimidazole Antimicrobial Start: 04-23-2015 End: 12-23-2015 take 1 tablet by mouth twice daily METRONIDAZOLE 500 MG TABS 1 po Twice daily x 7 days METRONIDAZOLE [id number] Karine Parsons DO Start: 12-05-2014 End: 01-27-2015 take 1 tablet by mouth twice daily FLAGYL 500 MG TABS 1 po Twice daily x 7 days METRONIDAZOLE [id number] Karine Parsons DO MULTIPLE VITAMINS-MINERALS (2 sources) take 1 capsule by mouth once daily CHOICEFUL MULTIVITAMIN CAPS PO QD MULTIPLE VITAMINS-MINERALS [id number] Karine Parsons, DO Multivitamin (Hair,Nails And Skin Vitamin) Tablet (3 sources) Start: 01-17-2023 End: 12-16-2023 Multivitamin (Hair,Nails And Skin Vitamin) Tablet Discontinued 1 {tbl} PO DAILY January 17, 2023 12:00am December 16, 2023 2:15pm Start: 01-17-2023 take 1 tablet by hima once daily Multivitamin (Hair,Nails And Skin Vitamin) Tablet Active 1 TABLET PO DAILY January 17, 2023 12:00am NORETHINDRON-ETHINYL ESTRAD-FE (4 sources) Start: 12-05-2014 take 1 tablet by mouth once daily ESTROSTEP FE 1-20/1-30/1-35 MG-MCG TABS 1 po daily as directed NORETHINDRON-ETHINYL ESTRAD-FE [id number] Bakari Hoff DO Start: 12-05-2014 End: 07-19-2017 take 1 tablet by mouth once daily ESTROSTEP FE 1-20/1-30/1-35 MG-MCG TABS 1 po daily as directed NORETHINDRON-ETHINYL ESTRAD-FE [id number] Aida Mena MD NORGESTIM-ETH ESTRAD TRIPHASIC (2 sources) Start: 11-07-2015 take 1 tablet by mouth once daily TRI-SPRINTEC 0.18/0.215/0.25 MG-35 MCG TABS 1 po daily as directed NORGESTIM-ETH ESTRAD TRIPHASIC [id number] Karine Parsons DO NORGESTIMATE-ETH ESTRADIOL TABS (4 sources) take 28 tablets by mouth once daily SPRINTEC 28 TABS PO QD NORGESTIMATE-ETH ESTRADIOL TABS [id number] Karine Parsons DO End: 01-27-2015 take 28 tablets by mouth once daily SPRINTEC 28 TABS PO QD NORGESTIMATE-ETH ESTRADIOL TABS [id number] Karine Parsons DO triamcinolone acetonide 5 mg/ml topical cream (4 sources) Corticosteroid Start: 03-05-2015 End: 07-19-2017 TRIAMCINOLONE ACETONIDE 0.5 % CREA apply to affected area twice daily TRIAMCINOLONE ACETONIDE [id number] Aida Mena MD 24 hr venlafaxine 150 mg extended release oral capsule (20 sources) Serotonin and Norepinephrine Reuptake Inhibitor Start: 09-26-2020 End: 09-26-2020 take 2 capsules by mouth once daily Venlafaxine (Effexor Xr) 75 mg capsule,extended release 24hr Active 75 mg PO DAILY September 26, 2020 2:13pm take daily with the 150 mg for 225mg total daily Start: 09-06-2018 End: 09-26-2020 take 1 capsule by mouth once daily Venlafaxine (Effexor Xr) 150 mg capsule,extended release 24hr Discontinued 150 mg PO DAILY September 26, 2020 2:04pm September 26, 2020 2:14pm Start: 11-07-2015 take 1 capsule by [facility] once daily VENLAFAXINE HCL ER 75 MG [id number] 1 po daily VENLAFAXINE HCL [id number] Karine Parsons DO Start: 12-05-2014 End: 12-23-2015 take 1 tablet by mouth once daily in the morning, then take 2 tablets by mouth once daily VENLAFAXINE HCL 37.5 MG TABS 1 po daily in AM x 14 days then 2 po daily VENLAFAXINE HCL [id number] Karine Parsons, DO Problems Active Problems Problem Classification Problem Date Documented Date Episodic/Chronic Essential hypertension (1 source) Essential (primary) hypertension; Translations: [Essential (primary) hypertension] Onset: 02-25-2025 Chronic Menopausal disorders (7 sources) Menopausal syndrome; Translations: [Menopausal and female climacteric states] Onset: 12-17-2024 12-19-2022 Chronic Comment on above: labs ordered and rec ommend estrogen and prometrium HRT Mood disorders (2 sources) Depressive disorder; Translations: [Major depressive disorder, single episode, unspecified] Onset: 07-08-2014 07-08-2014 Chronic Nutritional deficiencies (1 source) Vitamin D deficiency, unspecified; Translations: [Vitamin D deficiency, unspecified] Onset: 07-05-2024 Chronic Other female genital disorders (2 sources) Dysfunctional uterine bleeding; Translations: [Other specified abnormal uterine and vaginal bleeding] Onset: 12-05-2014 12-05-2014 Chronic Other female genital disorders (1 source) Other specified abnormal uterine and vaginal bleeding; Translations: [Other specified abnormal uterine and vaginal bleeding] Onset: 07-05-2024 Chronic Other female genital disorders (9 sources) Cervical intraepithelial neoplasia grade 1; Translations: [Mild cervical dysplasia] Onset: 07-19-2017 07-19-2017 Episodic Comment on above: discussed persistent CIN1 x 6 years if desires treatment recommend LEEP. colp done with biopsies 02/19. 2017 colp, 2018 pap hpv 11/15 CINI colp, repeat pap and hpv in 1 year; [place] 09/2020 mild changes repeat PAP/HPV 09/2021 LEEP margins fr ee Other female genital disorders (2 sources) Mild cervical dysplasia; Translations: [Mild dysplasia of cervix] Onset: 12-17-2024 Episodic Other upper respiratory disease (2 sources) Allergic rhinitis; Translations: [Allergic rhinitis, unspecified] Onset: 07-08-2014 07-08-2014 Chronic Residual codes; unclassified (10 sources) Abnormal cytology findings; Translations: [Low grade squamous intraepithelial lesion (LGSIL)] Episodic Comment on above: colp 11/17 await resu lts to determine fu likely repeat pap hpv in 1 year, 01/18 hpv effects, rpt pap & HPV in 1 yr 01/17 colposcopy awai t results to determine fu Residual codes; unclassified (1 source) Family history of ischemic heart disease and other diseases of the circulatory system; Translations: [Family history of ischemic heart disease and other diseases of the circulatory system] Onset: 02-25-2025 Episodic Residual codes; unclassified (1 source) Asymptomatic menopausal state; Translations: [Asymptomatic menopausal state] Onset: 12-21-2024 Episodic Past or Other Problems Problem Classification Problem Date Documented Da te Episodic/Chronic Administrative/social admission (1 source) Encounter for pre-employment examination; Translations: [Encounter for pre-employment examination] Onset: 10-05-2024 Episodic Allergic reactions (2 sources) Allergic urticaria; Translations: [Allergic urticaria] Onset: 03-05-2015 Resolved: 03-19-2015 03-05-2015 Episodic Deficiency and other anemia (1 source) Anemia, unspecified; Translations: [Anemia, unspecified] Onset: 07-05-2024 Episodic Inflammatory diseases of female pelvic organs (2 sources) Bacterial vaginosis; Translations: [Acute vaginitis] Onset: 12-05-2014 12-05-2014 Episodic Malaise and fatigue (1 source) Other fatigue; Translations: [Other fatigue] Onset: 07-05-2024 Episodic Other screening for suspected conditions (not mental disorders or infectious disease) (9 sources) Patient encounter status; Translations: [Encounter for screening for malignant neoplasm of colon] Onset: 11-12-2024 11-29-2022 Episodic Other upper respiratory infections (2 sources) Acute sinusitis; Translations: [Acute sinusitis, unspecified] Onset: 02-07-2015 02-16-2015 Episodic Urinary tract infections (2 sources) Acute urinary tract infection; Translations: [Urinary tract infection, site not specified] Onset: 12-23-2015 Resolved: 12-30-2015 12-23-2015 Episodic Results Test Name Value Interpretation Reference Range Facility Product Marketing Director Office Visit Reporton 01-08-2025 Product Marketing Director Office Visit Report [facility] [address], [address] [place] [address] OFFICE VISIT Date of Service: 01/08/25 MR#: [id number] Acct: [id number] Name: KARINE HASSAN Rep #: [id number] : 1970 Provider: Dr. Aida cuevas MD Age/Sex: 54/F Location: [facility] Status: Signed Intake Vital Signs 12/17/24 13:39 01/08/25 15:12 01/08/25 15:13 Height 5 ft 4 in 5 ft 4 in 5 ft 4 in Weight: 166 lb 2 oz BMI 28.5 BP 142/85 H Intake Visit Reasons: Discuss pap *copay $20 Grad Intern Required: No Is patient in pain?: No Allergies No Known Allergies Allergy (Verified 01/08/25 15:13) Medications ???Medication ???Instructions ???Recorded ???Confirmed ???Type venlafaxine 150 mg 150 mg PO DAILY #90 caps 09/26/20 01/08/25 Rx capsule,extended release 24 hr (Effexor XR) venlafaxine 75 mg capsule,extended 75 mg PO DAILY #90 caps 09/26/20 01/08/25 Rx release 24 hr (Effexor XR) lorazepam 0.5 mg tablet 0.5 mg PO DAILY PRN Anxiety 01/08/25 History metoprolol tartrate 25 mg tablet 25 mg PO BID 11/29/22 01/08/25 His tory multivitamin 1 tab PO DAILY 01/17/23 01/08/25 H istory estradiol 0.075 mg/24 hr 1 patch transdermal 2XW #24 patche s 12/17/24 01/08/25 Rx semiweekly transdermal patch progesterone micronized 100 mg 100 mg PO DAILY #90 caps 12/17/24 01/08/25 Rx capsule Patient : No : No PFSH Medical History Wears contact lenses Wears glasses Depression Anxiety Non-smoker Hypertension History of irregular heartbeat Low grade squamous intraepithelial lesion (LGSIL) History of depression History of breast lump Seasonal allergies Surgical History H/O LEEP History of colposcopy History of colonoscopy History of bunionectomy Family History Father Anxiety Cancer pancreatic, liver Depression Aunt Arthritis Unknown Bleeding disorder Grandmother Cancer Brother Depression Aunt Depression Mother Osteoporosis Social History number of children: 1 Smoking Status: Never smoker alcohol intake: never substance use type: does not use caffeine: Yes what type of physical activity do you participate in: walking seatbelt use: always do you feel safe at home: Yes additional social history: - Works for [employer] HPI Discuss pap *copay $20 Details: KARINE HASSAN is a 54 year old who presents for persistent SIERRA-1. Patient underwent a LEEP procedure recently that showed negative margins and no further dysplasia and a negative endocervical sampling however repeat Pap smear in 6 months showed recurrent SIERRA-1. Patient denies any tobacco use immunosuppressants and no other new diagnoses. History 2 Elective abortions Hx Para 1 Spontaneous abortions Hx # Term Pregnancies Ectopic pregnancies Hx # Pregnancies Multiple births # of living children Past Pregnancies Del. Date Name GA/Weeks Outcome Route Bth Weight Infant Gen [facility] FOB Unknown 2005 [place] live - full term Male ROS Const Constitutional: Denies fatigue, fever(s), headache(s), increased appetite, poor appetite, weight gain or weight loss GI GI: Reports as per HPI; Denies abdominal pain, constipation, nausea or vomiting : Reports as per HPI; Denies difficulty voiding, dysuria, hematuria, pelvic pain, urinary frequency, urinary incontinence, urinary hesitancy, urinary urgency, vaginal discharge, vaginal dryness, vaginal odor, vaginal pruritus or other Exam Const General: cooperative, healthy appearing, comfortable, no acute distress and well developed Orientation: alert HENID Head: normal to inspection and normocephalic Ears: hearing grossly normal bilaterally and external ears normal Nose: external nose normal and nares normal Face and sinus: normal facial exam Neck Neck: normal visual inspection, no lymphadenopathy and trachea midline Thyroid: thyroid normal Resp Effort Inspection: normal respiratory effort Musc Other: gross motor intact no deficits, full bilateral strength Skin General: no rashes or lesions noted Neuro Motor: muscle tone normal throughout Coding Level of Care Code Off vis,est,level 3 Diagnoses SIERRA I (cervical intraepithelial neoplasia I) N87.0 Assessment and Plan Assessment and Plan (1) SIERRA I (cervical intraepithelial neoplasia I): Status: Chronic Comment: 04/21 LEEP margins free. positive pap 01/20, repeat pap 6 months Plan Problem list updated and treatment plans were reviewed with the patient and relevant e (more content not included)... Normal [facility] PAP IG HPV APTIMA 16/18,45on 12-21-2024 ADEQ Comment Normal . [facility] Comment on above: Order Comment: Speci men Comment: [id number] Comment: No. of containers..01 ThinPrep Vial Result Comment: Sati sfactory for evaluation. Endocervical and/or squamous metaplastic cells (endocervical component) are present. Performed By: #### L 7400.0280 ####[facility] [id number] [place], [address] COMM . Normal . [facility] Comment on above: Order Comment: Speci men Comment: [id number] Comment: No. of containers..01 ThinPrep Vial Performed By: #### L 7400.0280 ####[facility] [id number] [place], [place], [id number] COMMENT Comment Normal . [facility] Comment on above: Order Comment: Speci men Comment: [id number] Comment: No. of containers..01 ThinPrep Vial Result Comment: This liquid based ThinPrep(R) pap test was screened with the use of an image guided system. Performed By: #### L 7400.0280 ####[facility] [id number] [place], [place], [id number] DIAG Comment Abnormal . [facility] Comment on above: Order Comment: Speci men Comment: [id number] Comment: No. of containers..01 ThinPrep Vial Result Comment: EPIT HELIAL CELL ABNORMALITY. LOW GRADE SQUAMOUS INTRAEPITHELIAL LESION (LSIL). Performed By: #### L [id number] ####[facility] [id number] [place], [place], [id number] HPV APTIMA, HR Negative Normal Negative [facility] Comment on above: Order Comment: Speci men Comment: [id number] Comment: No. of containers..01 ThinPrep Vial Result Comment: This nucleic acid amplification test detects fourteen high- risk HPV types (16,18,31,33,35,39,45,51,52,56,58,59,66,68) without differentiation. Performed By: #### L [id number] ####[facility] [id number] [place], [place], [id number] HPV Leeann Rfx Comment Normal . [facility] Comment on above: Order Comment: Speci men Comment: [id number] Comment: No. of containers..01 ThinPrep Vial Result Comment: Crit eria not met, HPV Genotype not performed. Performed at: - [facility] [id number] Jewelry Sales Associate: Marleni Cooley MD, Phone: [phone] Performed at: = - [facility] [address] [id number] Jewelry Sales Associate: Marleni Cooley MD, Phone: [phone] Performed By: #### L [id number] ####[facility] [address] [place], [place], [id number] PAPSMR Comment Normal . [facility] Comment on above: Order Comment: Speci men Comment: [id number] Comment: No. of containers..01 ThinPrep Vial Result Comment: The Pap smear is a screening test designed to aid in the detection of premalignant and malignant conditions of the uterine cervix. It is not a diagnostic procedure and should not be used as the sole means of detecting cervical cancer. Both false-positive and false-negative reports do occur. Performed By: #### L 7400.0280 ####[facility] [address] [place], [place], [id number] Path.prov.IDC-9 Comment Normal . [facility] Comment on above: Order Comment: Speci men Comment: [id number] Comment: No. of containers..01 ThinPrep Vial Result Comment: R87. 612 Performed By: #### L 7400.0280 ####[facility] [address] [place], [place], [address] PERFORM Comment Normal . [facility] Comment on above: Order Comment: Speci men Comment: [id number] Comment: No. of containers..01 ThinPrep Vial Result Comment: Oscar Corcoran, Onsite Case Manager (ASCP) Performed By: #### L 7400.0280 ####[facility] [address] [place], [address] RECOMM Comment Abnormal . [facility] Comment on above: Order Comment: Speci men Comment: [id number] Comment: No. of containers..01 ThinPrep Vial Result Comment: Sugg est follow up as clinically appropriate. Performed By: #### L 7400.0280 ####[facility] [address] [place], [place], [id number] SIGN Comment Normal . [facility] Comment on above: Order Comment: Speci men Comment: [id number] Comment: No. of containers..01 ThinPrep Vial Result Comment: Bell Wilde MD, Pathologist Performed By: #### L 7400.0280 ####[facility] [address] [place], [place], [address] Cervical or vaginal specimen microscopic examination by liquid based cytology (reportOrdered By: Aida Mena on 12-17-2024 Cytology report Cyto stain.thin prep Doc (Cvx/Vag) Comment . [facility] Comment on above: Criteria not met, HP V Genotype not performed.Performed at: [address] [id number] Director: Marleni Cooley MD, Phone: [phone] at: =[address] [place] [id number] Director: Marleni Cooley MD, Phone: [phone] Cervical or vagninal specime n microscopic examination by cytology stain (reported asOrdered By: Aida Mena on 12-17-2024 Cytology report Cyto stain Doc (Cvx/Vag) Comment . [facility] Comment on above: The Pap smear is a s creening test designed to aid in thedetection of premalignant and malignant conditions of theuterine cervix. It is not a diagnostic procedure andshould not be used as the sole means of detecting cervicalcancer. Both false-positive and false-negative reports dooccur. Detection in cervical specim en of any of human papilloma virus (HPV) 16, 18, 31, 33,Ordered By: Aida Mena on 12-17-2024 HPV 16+18+31+33+35+39+4 5+51+52+56+58+59+66 +68 DNA Probe+sig amp Ql (Cvx) Negative Negative [facility] Comment on above: This nucleic acid am plification test detects fourteen high- risk HPV types (16,18,31,33,35,39,45,51,52,56,58,59,66,68)without differentiation. Laboratory - CytologyOrdered By: Aida Mena on 12-17-2024 Onsite Case Manager Cyto stain Nom (Cvx/Vag) [ID] Comment . [facility] Comment on above: Ayaka Corcoran, Cytol ogist (ASCP) Pathologist Cyto stain Nom (Cvx/Vag) [ID] Comment . [facility] Comment on above: Nicki Wilde MD, Pa thologist Recommended follow-up Cyto stain Nom (Cvx/Vag) Comment High . [facility] Comment on above: Suggest follow up as clinically appropriate. Laboratory - Miscellaneous t estsOrdered By: Aida Mena on 12-17-2024 Service comment (Unsp spec) [Interp] . . [facility] No Panel InformationOrdered By: Aida Mena on 12-17-2024 Pap Smear Specimen Adequacy Comment . [facility] Comment on above: Satisfactory for salma luation. Endocervical and/or squamous metaplasticcells (endocervical component) are present. Pathology report final diagnosis Narrative Comment . [facility] Comment on above: R87.612 Product Marketing Director Office Visit Reporton 12-17-2024 Product Marketing Director Office Visit Report [facility] [address] [place] [address], [address] [place] [address] OFFICE VISIT Date of Service: 12/17/24 MR#: [id number] Acct: [id number] Name: KARINE HASSAN Rep #: [id number] : 1970 Provider: Dr. 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 Is patient in pain?: No Feel stressed/tense/nervous/anxiou s/difficulty sleeping: rather much Allergies No Known Allergies Allergy (Verified 12/17/24 13:34) Medications ???Medication ???Instructions ???Recorded ???Confirmed ???Type venlafaxine 150 mg 150 mg PO DAILY #90 caps 09/26/20 12/17/24 Rx capsule,extended release 24 hr (Effexor XR) venlafaxine 75 mg capsule,extended 75 mg PO DAILY #90 caps 09/26/20 12/17/24 Rx release 24 hr (Effexor XR) lorazepam 0.5 mg tablet 0.5 mg PO DAILY PRN Anxiety 12/17/24 History metoprolol tartrate 25 mg tablet 25 mg PO BID 11/29/22 12/17/24 His tory multivitamin 1 tab PO DAILY 01/17/23 12/17/24 H istory progesterone micronized 100 mg 100 mg PO DAILY #90 caps 02/28/24 12/17/24 Rx capsule estradiol 0.075 mg/24 hr 1 patch transdermal 2XW #24 patche s 11/27/24 12/17/24 Rx semiweekly transdermal patch Is last menstrual period known: No Post menopausal: Yes Patient : No : No [facility] Medical History (Updated 12/17/24 @ 13:[address] Aida Mena MD) Wears contact lenses Wears glasses Depression Anxiety Non-smoker Hypertension History of irregular heartbeat Low grade squamous intraepithelial lesion (LGSIL) History of depression History of breast lump Seasonal allergies Surgical History (Updated 12/17/24 @ 13:[address] Aida Mena MD) H/O LEEP History of colposcopy History of colonoscopy History of bunionectomy Family History Father Anxiety Cancer pancreatic, liver Depression Aunt Arthritis Unknown Bleeding disorder Grandmother Cancer Brother Depression Aunt Depression Mother Osteoporosis Social History (Updated 12/17/24 @ 13:36 by Kadie Steel) number of children: 1 Smoking Status: Never smoker alcohol intake: never substance use type: does not use caffeine: Yes what type of physical activity do you participate in: walking seatbelt use: always do you feel safe at home: Yes additional social history: - Works for [employer] History 2 Elective abortions Hx Para 1 Spontaneous abortions Hx # Term Pregnancies Ectopic pregnancies Hx # Pregnancies Multiple births # of living children Past Pregnancies Del. Date Name GA/Weeks Outcome Route Bth Weight Infant Gen Labor Lgth Anesthesia Del Locatn Provider FOB Unknown 2005 Usman live - full term Male HPI Encounter for routine gynecological examination Details: KARINE HASSAN is a 54 year old who presents for annual exam. Last PAP: 12/16/2023 - abnormal History of abnormal PAP: 11/2023 - LSIL, HPV+ Last mammogram: 11/02/2024 - normal History of abnormal mammogram: no Colon cancer screenin Other preventative health care screenings: PCP [facility] History Questions: metorrhagia: No, sexually active: Yes, dyspareunia: No and PCB: No Menopausal Symptoms: No hot flashes, No night sweats, No weight change, No mood changes, No difficulty concentrating, No sleep problems and No change in libido ROS Const Constitutional: Reports as per HPI; Denies fatigue, increased appetite, poor appetite, night sweats, weight gain or weight loss Cardio Card: Denies chest pain Resp Resp: Denies cough or dyspnea GI GI: Reports as per HPI; Denies abdominal pain, bloating, constipation, nausea or vomiting : Reports as per HPI and other; Denies difficulty voiding, dysuria, hematuria, hot flashes, nipple discharge, pelvic pain, prolapse symptoms, urinary frequency, urinary incontinence, urinary urgency, vaginal discharge, vaginal dryness, vaginal odor or vaginal pruritus Skin Skin/Breast: Denies changing lesions, breast mass, breast pain, breast skin changes or nipple discharge Psych Psych: Denies anxiety, change in libido, depression or difficulty concentrating Exam Const General: cooperative, healthy appearing, comfortable, no acute distress, well developed and well groomed [facility] Head: normal to inspection and normocephalic Ears: hearing grossly normal bilaterally and external ears normal Nose: external nose normal Face and sinus: normal facial exam Neck Neck: normal visual (more content not included)... Normal [facility] Breast imaging reportOrdered By: Elizabeth Conti on 11-02-2024 Study report [facility] [address] [place], [place] [id number] SCRN MAMM (CAD)W/GUSTAVO BILAT MR#: [id number] Acct: [id number] Name: KARINE HASSAN Rep #: [id number] : 1970 F 54 From: Nereida Conti MD PCP: Dr. Karine Parsons, Status: [facility] Study:SCRN MAMM (CAD)W/GUSTAVO BILAT Date of Exa m: 11/02/24 Exam# [id number] Ordering Dr: Aida Newton MD PROCEDURE: SCRN MAMM (CAD)W/GUSTAVO BILAT REASON FOR EXAM: F, Age 54 y/o, presents for annual screening mammogram. Family history of breast cancer in paternal aunt in her 70s. TECHNIQUE: Bilateral screening digital breast tomosynthesis with 2D and 3D images. Computeraided detection. COMPARISON: 11/02/2023, 10/29/2022 FINDINGS: The breasts are heterogeneously dense which may obscure small masses. The mammogram demonstrates that the patient has dense breasts. Supplemental screening with whole breast ultrasound or MRI may be considered for further evaluation. No suspicious masses, areas of developing architectural distortion, or suspicious calcifications. BI/SCRN MAMM (CAD)W/GUSTAVO BILAT IMPRESSION: There is no mammographic evidence of malignancy. BI-RADS 1: NEGATIVE. RECOMMEND ANNUAL MAMMOGRAPHIC SCREENING. Follow-up code: Routine Follow-up The patient will be notified of the results by letter. Reading Location: [facility] CC: Dr. Karine Parsons DO; Dr. Aida Mena MD ~ Scoreboard Operator: Signed [facility] SCRN MAMM (CAD)W/GUSTAVO BILATo n 11-02-2024 SCRN MAMM (CAD)W/GUSTAVO BILAT [facility] [address] [place] [address] SCRN MAMM (CAD)W/GUSTAVO BILAT MR#: [id number] Acct: [id number] Name: RAMILAKARINE Courtney Cristian Rep #: [id number] : 1970 F 54 From: Elizabeth Conti MD PCP: Dr. Karine Parsons DO Status: REG CLI Study: SCRN MAMM (CAD)W/GUSTAVO BILAT Date of Exam: 03/22 Exam# [id number] Ordering Dr: Aida Mena PROCEDURE: SCRN MAMM (CAD)W/GUSTAVO BILAT REASON FOR EXAM: F, Age 54 y/o, presents for annual screening mammogram. Family history of breast cancer in paternal aunt in her 70s. TECHNIQUE: Bilateral screening digital breast tomosynthesis with 2D and 3D images. Computer aided detection. COMPARISON: 11/02/2023, 10/29/2022 FINDINGS: The breasts are heterogeneously dense which may obscure small masses. The mammogram demonstrates that the patient has dense breasts. Supplemental screening with whole breast ultrasound or MRI may be considered for further evaluation. No suspicious masses, areas of developing architectural distortion, or suspicious calcifications. BI/SCRN MAMM (CAD)W/GUSTAVO BILAT IMPRESSION: There is no mammographic evidence of malignancy. BI-RADS 1: NEGATIVE. RECOMMEND ANNUAL MAMMOGRAPHIC SCREENING. Follow-up code: Routine Follow-up The patient will be notified of the results by letter. Reading Location: [id number] CC: Dr. Karine Parsons DO; Dr. Aida Mena MD Scoreboard Operator: Signed Normal [facility] Office Visit Reporton 2024 Office Visit Report [facility] [address] [place] [address] OFFICE VISIT Date of Service: 10/05/24 MR#: [id number] Acct: [id number] Patient: KARINE HASSAN Rep #: [id number] : 1970 Provider: ORLANDO Fitzpatrick Age/Sex: 54/F Location: [facility] Status: Signed Intake Vital Signs 05/07/24 15:21 Height 5 ft 4 in Intake Visit Reasons: QUANTIFERON, FIT TEST/ [place] Chief Complaint: colposcopy Allergies No Known Allergies Allergy (Verified 05/07/24 15:21) Office Procedures [facility] Billing Sheet Testing Pre-Employment PE: Yes Respirator Fit Testing: Yes Occquant-Quantiferon: Yes 10/18/24 0649 Date Jaamri PERRY Cosigner Signature: Date (if applicable) CC: Normal [facility] Quantiferon TB-Gold+on 10-10 QFT MITOGEN DURAN > 10.00 Normal . [facility] Comment on above: Performed By: #### L 6860.5271 ####[facility] [address] [place], [place], [id number] QFT NIL VALUE 0.02 IU/mL Normal . [facility] Comment on above: Performed By: #### L 3400.8000 ####[facility] [address] [place], [address] QFT TB GOLD+ Comment Normal . [facility] Comment on above: Result Comment: Sim tiFERON-TB Gold Plus is a qualitative indirect test for M tuberculosis infection (including disease) and is intended for use in conjunction with risk assessment, radiography, and other medical and diagnostic evaluations. The QuantiFERON-TB Gold Plus result is determined by subtracting the Nil value from either TB antigen (Ag) value. The Mitogen tube serves as a control for the test. Performed By: #### L 3400.8000 ####[facility] [address] [place], [address] QFT TB POS CRIT Negative Normal Negative [facility] Comment on above: Result Comment: No r esponse to M tuberculosis antigens detected. Infection with M tuberculosis is unlikely, but high risk individuals should be considered for additional testing (ATS/IDSA/CDC Clinical Practice Guidelines, 2017). The reference range is an Antigen minus Nil result of <0.35 IU/mL. The specimen received for QuantiFERON testing was incubated by the ordering institution. Specific procedures outlined in our Directory of Services and in the package insert for the QuantiFERON Gold (In Tube) test must be followed to enable for proper stimulation of cells for the production of interferon gamma. Chemiluminescence immunoassay methodology Performed at: [facility] [id number] Jewelry Sales Associate: Dennis Orantes PhD, Phone: [phone] Performed By: #### L 3400.8000 ####[facility] [address] [place], [address] QFT TB1+ AG DURAN 0 IU/mL Normal . [facility] Comment on above: Performed By: #### L 3400.8000 ####[facility] [address] [place], [address] QFT TB2+ AG DURAN 0.01 IU/mL Normal . [facility] Comment on above: Performed By: #### L 3400.8000 ####[facility] [address] [place], [address] M. tuberculosis tuberculin s sienna IFN-g Ql (Bld)Ordered By: Jamari Phillips on 10-05-2024 TB Test (QFT) Antigen 1 0 IU/mL . [facility] Qualitative QuantiFERON-TB g old in tube testOrdered By: Jamari Phillips on 10-05-2024 M. tuberculosis tuberculin stim IFN-g Ql (Bld) 0 IU/mL . [facility] Quantiferon-TB Gold Plus shannan tOrdered By: Jamari Phillips on 10-05-2024 TB Test (QFT) Comment . [facility] Comment on above: QuantiFERON-TB Gold Plus is a qualitative indirect test forM tuberculosis infection (including disease) and isintended for use in conjunction with risk assessment,radiography, and other medical and diagnostic evaluations.The QuantiFERON-TB Gold Plus result is determined bysubtracting the Nil value from either TB antigen (Ag)value. The Mitogen tube serves as a control for the test. TB Test (QFT) Antigen 2 0.01 IU/mL . [facility] TB Test (QFT) Mitogen > 10.00 IU/mL . [facility] TB Test (QFT) Nil 0.02 IU/mL . [facility] TB Test (QFT) Positive Criteria Negative Negative [facility] Comment on above: No response to M tub erculosis antigens detected.Infection with M tuberculosis is unlikely, but high riskindividuals should be considered for additional testing(ATS/IDSA/CDC Clinical Practice Guidelines, 2017). Thereference range is an Antigen minus Nil result of <0.35IU/mL.The specimen received for QuantiFERON testing was incubatedby the ordering institution. Specific procedures outlinedin our Directory of Services and in the package insert forthe QuantiFERON Gold (In Tube) test must be followed toenable for proper stimulation of cells for the productionof interferon gamma. Chemiluminescence immunoassaymethodologyPerformed at: [facility] [id number] Director: Dennis Orantes PhD, Phone: [phone] Urgent Care Visit Reporton 0 10-05-2024 Urgent Care Visit Report [facility] [address], [address] [place] [address] OFFICE VISIT Date of Service: 10/05/24 MR#: [id number] Acct: [id number] Name: KARINE HASSAN Rep #: [id number] : 1970 Provider: ORLANDO Fitzpatrick Age/Sex: 54/F Location: [facility] Status: Signed Intake Vital Signs 05/07/24 15:21 Height 5 ft 4 in Intake Visit Reasons: PE NON DOT PHYSICAL/ [place] Chief Complaint: colposcopy Allergies No Known Allergies Allergy (Verified 05/07/24 15:21) PFSH Medical History Wears contact lenses Wears glasses Depression Anxiety Non-smoker Hypertension History of irregular heartbeat Low grade squamous intraepithelial lesion (LGSIL) History of depression History of breast lump Seasonal allergies Surgical History History of colposcopy History of colonoscopy History of bunionectomy Family History Father Anxiety Cancer pancreatic, liver Depression Aunt Arthritis Unknown Bleeding disorder Grandmother Cancer Brother Depression Aunt Depression Mother Osteoporosis Social History Smoking Status: Never smoker alcohol intake: never substance use type: does not use caffeine: Yes what type of physical activity do you participate in: walking seatbelt use: always do you feel safe at home: Yes additional social history: - Works for [employer] HPI HPI Chief Complaint: colposcopy Details: KARINE HASSAN, is a 54 F who presents to the office today for preemployment physical. Please see corresponding scanned documents with today's date. Office Procedures Physical Exam Coding PE Coding Pre-employment PE: Yes Coding Level of Care Code No Charge Diagnoses Encounter for pre-employment health screening examination Z02.1 Assessment and Plan Assessment and Plan (1) Encounter for pre-employment health screening examination: Status: Acute Orders: Orders Quantiferon TB-Gold+ Today Z02.1 - Encounter for pre-employment examination 10/05/24 0756 Date Jamari Vázquez Signature: Date (if applicable) CC: Normal [facility] Product Marketing Director Office Visit Reporton 05-07-2024 Product Marketing Director Office Visit Report [facility] [address], [address] [place] [address] OFFICE VISIT Date of Service: 05/07/24 MR#: [id number] Acct: [id number] Name: KARINE HASSAN Rep #: [id number] : 1970 Provider: Dr. Aida cuevas MD Age/Sex: 54/F Location: [facility] Status: Signed Intake Vital Signs 02/03/24 15:03 04/17/24 13:45 05/07/24 15:20 05/07/24 15:21 Height 5 ft 4 in 5 ft 4 in 5 ft 4 in 5 ft 4 in Weight: 167 lb BMI 28.6 BP 138/86 H Blood Pressure Location Rt brachial Position Sitting Intake Visit Reasons: 2 wk LEEP Grad Intern Required: No Is patient in pain?: No Allergies No Known Allergies Allergy (Verified 05/07/24 15:21) Medications ???Medication ???Instructions ???Recorded ???Confirmed ???Type venlafaxine 150 mg 150 mg PO DAILY #90 caps 09/26/20 05/07/24 Rx capsule,extended release 24 hr (Effexor XR) venlafaxine 75 mg capsule,extended 75 mg PO DAILY #90 caps 09/26/20 05/07/24 Rx release 24 hr (Effexor XR) lorazepam 0.5 mg tablet 0.5 mg PO DAILY PRN Anxiety 11/29/22 05/07/24 History metoprolol tartrate 25 mg tablet 25 mg PO BID 11/29/22 05/07/24 History multivitamin 1 tab PO DAILY 01/17/23 05/07/24 History estradiol 0.075 mg/24 hr See Rx Instructions .Route 12/16/23 05/07/24 Rx semiweekly transdermal patch .COMPLEX #8 patches progesterone micronized 100 mg 100 mg PO DAILY #90 caps 02/28/24 05/07/24 Rx capsule PFSH Medical History Wears contact lenses Wears glasses Depression Anxiety Non-smoker Hypertension History of irregular heartbeat Low grade squamous intraepithelial lesion (LGSIL) History of depression History of breast lump Seasonal allergies Surgical History History of colposcopy History of colonoscopy History of bunionectomy Family History Father Anxiety Cancer pancreatic, liver Depression Aunt Arthritis Unknown Bleeding disorder Grandmother Cancer Brother Depression Aunt Depression Mother Osteoporosis Social History Smoking Status: Never smoker alcohol intake: never substance use type: does not use caffeine: Yes what type of physical activity do you participate in: walking seatbelt use: always do you feel safe at home: Yes additional social history: - Works for [employer] HPI 2 wk LEEP Details: KARINE HASSAN is a 54 year old who presents for postop visit doing well no complaints History 2 Elective abortions Hx Para 1 Spontaneous abortions Hx # Term Pregnancies Ectopic pregnancies Hx # Pregnancies Multiple births # of living children Past Pregnancies Del. Date Name GA/Weeks Outcome Route Bth Weight Infant Gen Labor Lgth Anesthesia Del Locatn Provider FOB Unknown 2005 Usman live - full term Male ROS Const Constitutional: Reports system reviewed and no additional complaints, except as documented GI GI: Denies abdominal pain, cramping, nausea or vomiting : Denies pelvic pain, urinary frequency, urinary incontinence, urinary urgency, vaginal discharge, vaginal dryness or vaginal odor Exam Const General: cooperative, healthy appearing, comfortable and no acute distress GI Inspection: normal to inspection Palpation: soft and nontender Coding Level of Care Code No Charge Diagnoses SIERRA I (cervical intraepithelial neoplasia I) N87.0 Assessment and Plan Assessment and Plan (1) SIERRA I (cervical intraepithelial neoplasia I): Status: Chronic Comment: discussed persistent CIN1 x 6 years if desires treatment recommend LEEP. colp done with biopsies 02/19. 2017 colp, 2019 pap hpv 11/15 CINI colp, repeat pap and hpv in 1 year; [place] 09/2020 mild changes repeat PAP/HPV 09/2021 Plan fu annually 05/09/24 0857 Date Aida Mena MD Cosign Signature: Date (if applicable) CC: Normal [facility] Discharge Instructionon 03-30 Discharge Instruction [facility] Records Department [address] [place] [address] Instructions for Home/Discharge Instructions 04/17/24 1502 MR#: [id number] Acct: [id number] Name: SONYAKARINE M Rep #: [id number] : 1970 54 From: Aida Mena MD PCP: Dr. Karine Parsons, DO Status:DEP [facility] Discharge Instructions Diet Discharge Diet: No restrictions Activity Discharge Activity: Return to Normal Activity and May Not Drive (while taking narcotic pain medications.) May resume sexual activity in: 4 weeks (Nothing in the vagina for 4 weeks.) Dressing / Incision Call your doctor if you observe: Fever of 101 or Higher and Using more than 1 pad per hour Follow Up Care Please Follow Up With: Aida Mena MD When: Call [phone] for follow-up appointment. Test Results: Test results from this visit will be discussed in further detail at your follow-up appointment, if applicable. Discharge Plan Admission Attending Provider: Aida Mena Primary Care Provider: Karine Parsons Instructions Print Language: Bengali Discharge Orders/Prescriptions Prescriptions: No Action venlafaxine [Effexor XR] 75 mg capsule,extended release 24hr 75 mg PO DAILY Qty: 90 12RF Rx Instructions: take daily with the 150 mg for 225mg total daily venlafaxine [Effexor XR] 150 mg capsule,extended release 24hr 150 mg PO DAILY Qty: 90 12RF lorazepam 0.5 mg tablet 0.5 mg PO DAILY PRN (Reason: Anxiety) metoprolol tartrate 25 mg tablet 25 mg PO BID estradiol 0.075 mg/24 hr patch semiweekly See Rx Instructions .ROUTE .COMPLEX Qty: 8 2RF Dose Instruction: APPLY ONE PATCH TRANSDERMALLY ALTERNATING ONE PATCH ON FOR 3 DAYS THEN ONE PATCH ON FOR 4 DAYS Rx Instructions: APPLY ONE PATCH TRANSDERMALLY ALTERNATING ONE PATCH ON FOR 3 DAYS THEN ONE PATCH ON FOR 4 DAYS multivitamin Tablet 1 tab PO DAILY progesterone micronized 100 mg capsule 100 mg PO DAILY Qty: 90 4RF Referrals / Follow Up: Karine Parsons DO [Primary Care Provider] - Disposition Disposition (needs filled in before D/C Order can be placed): Home, Self Care 04/17/24 1610 Aiad Mena MD CC: Dr. Karine Parsons DO Signed [facility] MR/POSTOP.[facility] 04-17-2024 MR/POSTOP.[facility] Medical Records Department [address] [place] [address] Anesthesia Postop Eval I 04/17/24 1507 MR#: [id number] Acct: [id number] Name: KARINE HASSAN Cristian Rep #: [id number] : 1970 54 From: Kassandra Melissa CRNA PCP: Dr. Karine Parsons DO Status:REG SDC Y Race: C Location: [place] [address] Anesthesia: Postop Eval I Current Vital Signs Temperature: 97.3 F Pulse Rate: 84 Blood Pressure: 118/72 Respiratory Rate: 16 Pulse Ox: 98 Oxygen Delivery Method: Room Air Assessment Airway patent: Yes Spontaneous unlabored respirations: Yes Mental status: Awake and Calm nausea: No Vomiting: No Anesthesia Complication: No Fluid Hydration Crystalloid volume administer (ml): 600 Total IV fluid infused: 600 Progress Note Anesthesia document: Postop Eval 1 completed: Yes 04/17/24 150 Date Kassandra Melissa CRNA Cosigner Signature: Date CC: Signed Normal [facility] MR/[id number] 04-17-2024 MR/POSTOPAN2 [facility] Medical Records Department [address] [place] [address] Anesthesia Postop Eval II 04/17/241809 MR#: [id number] Acct: [id number] Name: KARINE HASSAN Rep #: [id number] : 1970 54 From: Tarun aBrcenas MD PCP: Dr. Karine Parsons, DO Status:DEP [facility] Y Race: C Location: [facility] Anesthesia Postop Eval I Sum Postop Eval Completion status Anesthesia document: Postop Eval 1 completed: Yes Anesthesia Postop Eval I Summary Anesthesia Postop Eval I Summary: Anesthesia Postop Eval I: Assessment Summary Airway patent Yes 04/17/24 15:07 BEE RAISER.SKOBY Spontaneous unlabored Yes 04/17/24 15:07 BEE RAISER.SKOBY respirations Mental status Awake,Calm 04/17/24 15:07 BEE RAISER.SKOBY nausea No 04/17/24 15:07 BEE RAISER.SKOBY Vomiting No 04/17/24 15:07 BEE RAISER.SKOBY Anesthesia Postop Eval I: Fluid Summary Crystalloid volume administer 600 04/17/24 15:07 BEE RAISER.SKOBY (ml) Colloids volume administered ( ml) Blood Product volume administered (ml) Total IV fluid infused 600 04/17/24 15:07 BEE RAISER.SKOBY Anesthesia Postop Eval I: Summary Notes Anesthesia Complication No 04/17/24 15:07 BEE RAISER.SKOBY Anesthesia Complication Comment: Post-operative progress note Anesthesia: Postop Eval II Evaluation Mental status: Awake Pain Level: 0 nausea: No Vomiting: No 04/17/241809 Date Tarun Barcenas MD Cosigner Signature: Date CC: Signed Normal [facility] Operative Reporton Operative Report [facility] Medical Records Department [address] [place] [address] Operative Report 04/17/24 1458 MR#: [id number] Acct: [id number] Name: KARINE HASSAN Rep #: [id number] : 1970 54 From: Aida Mena MD PCP: Dr. Karine Parsons DO Status:[facility] Location: [place] [address] Problems Associated Problem List Diagnoses (1) SIERRA I (cervical intraepithelial neoplasia I): Report of Operation Date of Procedure: 04/17/24 Pre-Operative Diagnosis: see problem list Post-Operative Diagnosis: same Surgery/Procedure Performed:: LEEP procedure Description of Surgical Findings:: grossly nl cervix Surgeon: Aida Mena bolt threader: None Type of Anesthesia: General and Local Special Medications: monsels paste Specimen's removed: cervix ecc Drains: none Estimated Blood Loss (mL): 50 Fluids Replaced: crystalloid Description of Procedure: Using a loop electrode the outer part of the cervix was removed including the squamocolumnar junction. Endocervical curettings were taken and the base of the cervix was cauterized around the borders and the base to obtain excellent hemostasis. lidocaine injected as a paracervical block. Monsel's paste was placed and patient was awoken and taken recovery in stable condition. Grafts/Implants Used: none Procedure Start Time: 14:43 Procedure Stop Time: 14:56 Complications none Admit VTE Documentation VTE Present on Admission: No VTE Mechan Device Prophylaxis: SCD's Multi Select Codes Urinary/Genital Urinary/Genital CPT Codes: 46297 LEEP 04/17/24 1502 Cosigner Signature (if applicable): CC: Dr. Karine Parsons DO; Dr. Aida Mena MD Signed [facility] ,Urineon 04-17-2024 Beta HCG ( test) Ql (U) Negative [facility] Comment on above: Result Comment: Very dilute urine specimens, as indicated by a low specific gravity, may not contain volunteer patient representative levels of hCG. If is still suspected, a first morning urine specimen should be collected 48 hours later and tested. Performed By: #### L 400.7600 ####[facility] [id number] [place], [place], [address] Surgery Specimen Level Charity 04-17-2024 Surgery Specimen Level IV ----- Patient Age/Sex Location Account Attending Physician ----- KARINE HASSAN 54/F [facility] [id number] Dr. Aida Mena MD ----- Specimen: [id number] Received: 04/17/24 Status: JAMILA Colin Num: [id number] Spec Type: Denise Rico Dr: Dr. Aida Mena MD HEADER OPERATION: Denise villafana PRE-OP DIAGNOSIS: SIERRA I (cervical intraepithelial neoplasia I) TISSUE SUBMITTED: A- Anterior cervical lip, B- Posterior cervical lip, C- Endocervical curettings ----- MICROSCOPIC DIAGNOSIS A. Anterior cervical lip, leep colonization: A piece of ectocervical mucosa, negative for dysplasia. Focal parakeratosis. B. 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 Focal parakeratosis. Resection margins are free of dysplastic changes. See comment. C. Endocervical curettings: Fragments of benign ectocervical and endocervical epithelium, negative for dysplasia. SJ/mr 04/19/2024 COMMENT B. Immunohistochemistry ([id number]) for surrogate HPV marker (p16) supports the above diagnosis. Please make reference to previous specimen [id number] cervix, 5o'clock, biopsy with diagnosis of mild squamous dysplasia with HPV changes. Case has been reviewed in consultation with Dr. Goldberg who concurs with the above diagnosis. IDC:AM. MICROSCOPIC DESCRIPTION Slides are reviewed. GROSS DESCRIPTION A. Received in fixative is one container labeled with the patient's name and designated Anterior cervical lip. The specimen consists of a piece of segovia indurated tissue measuring 1.2 x 1.2 x 0.3cm. No mucosal lesion is identified. Non-mucosal surface is inked black. The specimen is serially sectioned and submitted entirely in one cassette. B. Received in fixative is one container labeled with the patient's name and designated Posterior cervical lip. The specimen consists of a piece of segovia indurated tissue measuring 2.5 x 1.0 x 0.5cm. No mucosal lesion is identified. Non-mucosal surface is inked ----- Patient Age/Sex Location Account Attending Physician ----- KARINE HASSAN 54/ [facility] [id number] Dr. Aida Mena MD ----- black. The specimen is inked, serially sectioned and submitted entirely in three cassettes. C. Received in fixative is one container labeled with the patient's name and designated Endometrial curettings. The specimen consists of multiple fragments of segovia mucoid tissue that in aggregate measure 1.0 x 0.2 x 0.1 cm. The specimen is totally submitted in one cassette. SJ 04/18/2024 TC:5 CPT:73682,68776r8 ----- Patient Age/Sex Location Account Attending Physician ----- KARINE HASSAN 54/ [facility] [id number] Dr. Aida Mena MD ----- Signed (signature on file) Dr. Kavon Izaguirre MD 04/20/24 1137 ----- Normal [facility] Comment on above: Performed By: #### P SUIV ####[facility] [id number] [place], [place], [address] p16 (initial)on 04-17-2024 p16 (initial) --------- ----- Patient Age/Sex Location Account Attending Physician ----- KARINE HASSAN 54/F [facility] [id number] Dr. Aida Mena MD ----- Specimen: [id number] Received: 04/19/24 Status: JAMILA Colin Num: [id number] Spec Type: IMMUNO Subm Dr: Dr. Aida Mena MD PHYSICIAN INSTITUTION [place] [address] SPECIMEN INFORMATION: Tissue Source: B- Posterior cervical lip Clinical Info: SIERRA I (cervical intraepithelial neoplasia I) Specimen Number: [id number] CPT code: 51279,11666 METHODOLOGY: Deparaffinized sections of prefer/formalin-fixed tissue or PAP/DQ stained slides are incubated with monoclonal/polyclonal antibodies/oligonucleotide probes. Localization is made via biotin free immunoperoxidase method. Appropriate controls are performed and reacted as expected. Results on target cell population are indicated in the following table: RESULTS: ANTIBODY / CLONE RESULT Block B P16 (E6H4) positive, focal patchy staining Ki-67 (30-9) positive, low These tests were developed and their performance characteristics determined by [facility]. They may not have been cleared or approved by the U.S. Food and Drug Administration. The FDA has determined that such clearance or approval is not necessary. The above immunohistochemical/dualISH markers are ordered and reviewed by the Pathologist. INTERPRETATION: B. Posterior cervical lip, leep cone: Focal mild squamous dysplasia with HPV changes. Case has been reviewed in consultation with Dr. Goldberg who concurs with the above diagnosis. IDC:LYNDSEY TIDWELL/ 04/20/2024 Signed (signature on file) Dr. Kavon Izaguirre MD 04/20/24 1138 ----- Normal [facility] Comment on above: Performed By: #### P P16 #### [facility] [address] [place], [address] CBC-Complete Blood Cnt No ffon 04-13-2024 Erythrocyte distribution width (RBC) [Ratio] 12.4 % Normal 11.6-14.6 [facility] Comment on above: Performed By: #### B TSPAT, L400.7600, L100.0500 #### [facility] [address] [place], [address] Hematocrit (Bld) [Volume fraction] 40.8 % Normal 37-47 [facility] Comment on above: Performed By: #### B TSPAT, L400.7600, L100.0500 #### [facility] [address] [place], [address] Hemoglobin (Bld) [Mass/Vol] 13.9 g/dL Normal 12.0-15.0 [facility] Comment on above: Performed By: #### B TSPAT, L400.7600, L100.0500 #### [facility] [address] [place], [address] MCH (RBC) [Entitic mass] 31.8 pg Normal 27.0-32.0 [facility] Comment on above: Performed By: #### B TSPAT, L400.7600, L100.0500 #### [facility] [address] [place], [address] MCHC (RBC) [Mass/Vol] 34.1 g/dL Normal 32-36 [facility] Comment on above: Performed By: #### B TSPAT, L400.7600, L100.0500 #### [facility] [address] [place], [address] MCV (RBC) [Entitic vol] 93.4 fL Normal 81-99 [facility] Comment on above: Performed By: #### B TSPAT, L400.7600, L100.0500 #### [facility] [address] [place], [address] Platelet mean volume (Bld) [Entitic vol] 9.6 fL Normal 6.2-12.0 [facility] Comment on above: Performed By: #### B TSPAT, L400.7600, L100.0500 #### [facility] [address] [place], [address] Platelets (Bld) [#/Vol] 273 10*3/uL Normal 150-450 [facility] Comment on above: Performed By: #### B TSPAT, L400.7600, L100.0500 #### [facility] [address] [place], [address] RBC (Bld) [#/Vol] 4.37 10*6/uL Normal 4.2-5.4 [facility] Comment on above: Performed By: #### B TSPAT, L400.7600, L100.0500 #### [facility] [address] [place], [address] RDW SD 42.7 fl Normal 35.1-43.9 [facility] Comment on above: Performed By: #### B TSPAT, L400.7600, L100.0500 #### [facility] [address] [place], [address] WBC (Bld) [#/Vol] 7.8 10*3/uL Normal 4.4-11.0 [facility] Comment on above: Performed By: #### B TSPAT, L400.7600, L100.0500 #### [facility] [address] [place], [address] ,Urineon 04-13-2024 Beta HCG ( test) Ql (U) Negative Normal [facility] Comment on above: Result Comment: Very dilute urine specimens, as indicated by a low specific gravity, may not contain volunteer patient representative levels of hCG. If is still suspected, a first morning urine specimen should be collected 48 hours later and tested. Performed By: #### B TSPAT, L400.7600, L100.0500 #### [facility] [address] [place], [address] Type AND Screen - PAT ONLYon 04-13-2024 Ab SCREEN GEL Negative Normal [facility] Comment on above: Order Comment: Reaso n for Laboratory Test PREOP [id number] No N N S 0600 LEEP Performed By: #### B TSPAT, L400.7600, L100.0500 #### [facility] [address] [place], [address] Product Marketing Director Office Visit Reporton 04-02-2024 Product Marketing Director Office Visit Report [facility] [place] [address] [place] [address] OFFICE VISIT Date of Service: 04/02/24 MR#: [id number] Acct: [id number] Name: KARINE HASSAN Rep #: [id number] : 1970 Provider: Dr. Aida cuevas MD Age/Sex: 53/F Location: [facility] Status: Signed Intake Vital Signs 02/03/24 15:03 04/02/24 15:59 04/02/24 16:01 Height 5 ft 4 in 5 ft 4 in 5 ft 4 in Weight: 161 lb BMI 27.6 BP 109/73 Intake Visit Reasons: LEEP Allergies No Known Allergies Allergy (Verified 04/02/24 16:00) Medications ???Medication ???Instructions ???Recorded ???Confirmed ???Type venlafaxine 150 mg 150 mg PO DAILY #90 caps 09/26/20 04/02/24 Rx capsule,extended release 24 hr (Effexor XR) venlafaxine 75 mg capsule,extended 75 mg PO DAILY #90 caps 09/26/20 04/02/24 Rx release 24 hr (Effexor XR) lorazepam 0.5 mg tablet 0.5 mg PO DAILY PRN Anxiety 11/29/22 04/02/24 History metoprolol tartrate 25 mg tablet 25 mg PO BID 11/29/22 04/02/24 History multivitamin 1 tab PO DAILY 01/17/23 04/02/24 History estradiol 0.075 mg/24 hr See Rx Instructions .Route 12/16/23 04/02/24 Rx semiweekly transdermal patch .COMPLEX #8 patches progesterone micronized 100 mg 100 mg PO DAILY #90 caps 02/28/24 04/02/24 Rx capsule PFSH Medical History (Updated 02/07/24 @ 03:[address] Aida Mena MD) Wears contact lenses Wears glasses Depression Anxiety Non-smoker Hypertension History of irregular heartbeat Low grade squamous intraepithelial lesion (LGSIL) History of depression History of breast lump Seasonal allergies Surgical History History of bunionectomy Family History Father Anxiety Cancer pancreatic, liver Depression Aunt Arthritis Unknown Bleeding disorder Grandmother Cancer Brother Depression Aunt Depression Mother Osteoporosis Social History Smoking Status: Never smoker alcohol intake: never substance use type: does not use caffeine: Yes what type of physical activity do you participate in: walking seatbelt use: always do you feel safe at home: Yes additional social history: - Works for [employer] Details: KARINE HASSAN is a 53 year old who presents for persistent cervical dysplasia for the last 6+ years. She has had low to intermediate grade changes that have not resolved. After persistence the recommendation is for continued expectant management versus excisional procedure, the patient has decided to proceed with excisional procedure. Female Reproductive History Menopausal Symptoms: No night sweats History 2 Elective abortions Hx Para 1 Spontaneous abortions Hx # Term Pregnancies Ectopic pregnancies Hx # Pregnancies Multiple births # of living children Past Pregnancies Del. Date Name GA/Weeks Outcome Route Bth Weight Gen Labor Lgth Anesthesia Del Locatn Provider FOB Unknown 2005 Usman live - full term Male ROS Const Constitutional: Denies fatigue, night sweats, weight gain or weight loss ENT ENT: Reports system reviewed and no additional complaints, except as documented Cardio Card: Denies chest pain Resp Resp: Denies cough or dyspnea GI GI: Reports as per HPI; Denies abdominal pain, constipation, nausea or vomiting : Denies nipple discharge, urinary frequency, urinary incontinence, urinary hesitancy, urinary urgency, vaginal discharge, vaginal dryness, vaginal odor or vaginal pruritus Musc Musc: Denies arthralgias, back pain or muscle weakness Skin Skin/Breast: Denies alopecia, change in hair, dry skin, breast mass, breast pain, breast skin changes or nipple discharge Neuro Neuro: Reports system reviewed and no additional complaints, except as documented Psych Psych: Reports system reviewed and no additional complaints, except as documented Endo Endo: Denies cold intolerance, excessive sweating, heat intolerance or polydipsia Rizwan/Lymph Hematologic/Lymphatic: Denies easy bleeding, Denies easy bruising and Denies lymphadenopathy Exam Const General: cooperative, healthy appearing, comfortable and no acute distress Orientation: alert [facility] Head: normal to inspection and normocephalic Ears: hearing grossly normal bilaterally and external ears normal Nose: external nose normal and nares normal Face and sinus: normal facial exam Neck Neck: normal visual inspection and no lymphadenopathy Thyroid: thyroid normal Chest Chest palpation inspection: normal inspection of the chest Resp Effort Inspection: normal respiratory effort Auscultation: clear to auscultation bilat (more content not included)... Normal [facility] No Panel InformationOrdered By: Dr. Mena on 12-14-2022 Follicle Stimulating Hormone 89.4 mIU/mL [facility] Comment on above: NORMAL REFERENCE RAN GES FEMALE FOLLICULAR 2.3 - 12.6 mIU/mL MID-CYCLE PEAK 5.2 - 17.5 mIU/mL LUTEAL 1.7 - 12.9 mIU/mL POST-MENOPAUSAL ON MHT 5.9 - 72.8 mIU/mL NOT ON MHT 12.7 - 132.2 mlU/mL MALE 0.7 - 10.8 mIU/mL Thyroid Stimulating Hormone (TSH) 1.68 uIU/mL 0.358-3.74 [facility] Serum or plasma estradiol (E 2) measurement (mass/volume)Ordered By: Dr. Mena on 12-14-2022 E2 [Mass/Vol] pg/mL [facility] Comment on above: NORMAL REFERENCE RAN GES FEMALE FOLLICULAR 21.4 - 164.8 pg/mL MID-CYCLE PEAK 49.9 - 367.2 pg/mL LUTEAL 40.2 - 259.0 pg/mL POST-MENOPAUSAL ON MHT <11.0 - 462.1 pg/mL NOT ON MHT <11.0 - 58.3 pg/mL MALE <11.0 - 52.5 pg/mL NOTE:[employer] HAS CONFIRMED THE DRUG FULVETRANT (FASLODEX) MAY CAUSE FALSELY ELEVATED ESTRADIOL RESULTS WHEN USING THIS TEST METHOD. IF PATIENT IS TAKING FULVESTRANT AN ALTERNATIVE METHOD SHOULD BE USED TO DETERMINE ESTRADIOL CONCENTRATION. Cervical or vagninal specime n microscopic examination by cytology stain (reported ason 10-06-2021 Cytology report Cyto stain Doc (Cvx/Vag) Comment [facility] Work Phone: Comment on above: The Pap smear is a s creening test designed to aid in thedetection of premalignant and malignant conditions of theuterine cervix. It is not a diagnostic procedure andshould not be used as the sole means of detecting cervicalcancer. Both false-positive and false-negative reports dooccur. Detection in cervical specim en of any of human papilloma virus (HPV) 16, 18, 31, 33,on 10-06-2021 HPV 16+18+31+33+35+39+4 5+51+52+56+58+59+66 +68 DNA Probe+sig amp Ql (Cvx) Positive Negative [facility] Work Phone: Comment on above: This nucleic acid am plification test detects fourteen high- risk HPV types (16,18,31,33,35,39,45,51,52,56,58,59,66,68)without differentiation.Performed at: [address] [id number] Director: Marleni Cooley MD, Phone: [phone] at: =[address] [id number] Director: Marleni Cooley MD, Phone: [phone] Laboratory - Cytologyon Onsite Case Manager Cyto stain Nom (Cvx/Vag) [ID] Comment [facility] Work Phone: Comment on above: David Mathur totechnologist Pathologist Cyto stain Nom (Cvx/Vag) [ID] Comment [facility] Work Phone: Comment on above: Marleni Cooley MD, Pathologist Recommended follow-up Cyto stain Nom (Cvx/Vag) Comment [facility] Work Phone: Comment on above: Suggest follow up as clinically appropriate. Laboratory - Miscellaneous t estson 10-06-2021 Service comment (Unsp spec) [Interp] Comment [facility] Work Phone: Comment on above: This liquid based Th inPrep(R) pap test was screened withthe use of an image guided system. Service comment (Unsp spec) [Interp] . [facility] Work Phone: No Panel Informationon 10-06 Pathology report final diagnosis Narrative Comment [facility] Work Phone: Comment on above: EPITHELIAL CELL ABNO RMALITY.LOW GRADE SQUAMOUS INTRAEPITHELIAL LESION (LSIL). R87.612 Office Visit: colpon 017 Documentation of current medications (procedure) Done Invalid Interpretation Code [facility] Fall risk assessment No Invalid Interpretation Code [facility] General categories [Interpretation] of Cervical or vaginal smear or scraping by Cyto stain no Invalid Interpretation Code [facility] Tobacco smoking status NHIS Never Invalid Interpretation Code [facility] Tobacco use CPHS Never smoker Invalid Interpretation Code [facility] Office Visit: colpon 017 General categories [Interpretation] of Cervical or vaginal smear or scraping by Cyto stain Abnormal Invalid Interpretation Code [facility] Office Visit: UTI Sxon 12-22 Bilirubin Ql (U) 1+ Invalid Interpretation Code [facility] blood in urine (hemoglobin) by dipstick 3+ Invalid Interpretation Code [facility] specific gravity, urine 1.030 Invalid Interpretation Code [facility] Urine, appearance cloudy with floaters Invalid Interpretation Code [facility] Urine, color dark yellow/brown Invalid Interpretation Code [facility] Urine, glucose presence Negative Invalid Interpretation Code [facility] Urine, ketones presence Negative Invalid Interpretation Code [facility] Urine, leukocyte esterase presence 3+ Invalid Interpretation Code [facility] Urine, nitrite presence Positive Invalid Interpretation Code [facility] Urine, pH 6.5 [pH] Invalid Interpretation Code [facility] Urine, protein Albumin [Presence] in Urine Inva lid Interpretation Code [facility] Urine, urobilinogen presence 0.2 Invalid Interpretation Code [facility] Lab Report: Glucoseon 2015 Glucose mass conc 87 mg/dL Invalid Interpretation Code 70-110 [facility] Lab Report: Lipid Profileon 12-10-2015 Cholesterol 193 mg/dL Invalid Interpretation Code 200 [facility] HDL Cholesterol 93 mg/dL Invalid Interpretation Code [facility] LDL Cholesterol 82 mg/dL Invalid Interpretation Code 0-130 [facility] Triglyceride 92 mg/dL Invalid Interpretation Code [facility] very low density lipoproteins 18 mg/dL Invalid Interpretation Code 5-40 [facility] Vital Signs Date Time Vital Sign Value Performing Clinician Rishi llanes 01-08-2025 15:13-0400 Body height 162.[address] Karine Parsons DO Work Phone: [facility] 01-08-2025 15:12-0400 Body mass index (BMI) [Ratio] 28.5 kg/m2 Dr. Karine Parsons DO Work Phone: [facility] 01-08-2025 15:12-0400 Body weight 75.[address] Karine Parsons DO Work Phone: [facility] 01-08-2025 15:12-0400 Diastolic blood pressure 85 mm[Hg] Dr. Karine Parsons DO Work Phone: [facility] 01-08-2025 15:12-0400 Systolic blood pressure 142 mm[Hg] Dr. Karine Parsons DO Work Phone: [facility] 12-17-2024 13:32-0400 Body mass index (BMI) [Ratio] 28.5 kg/m2 Dr. Karine Parsons DO Work Phone: [facility] 12-17-2024 13:32-0400 Body weight 75.[address] Karine Parsons DO Work Phone: [facility] 12-17-2024 13:32-0400 Diastolic blood pressure 82 mm[Hg] Dr. Karine Parsons DO Work Phone: [facility] 12-17-2024 13:32-0400 Systolic blood pressure 136 mm[Hg] Dr. Karine Parsons DO Work Phone: [facility] 12-14-2022 11:53-0400 Body height 162.[address] Karine Parsons Work Phone: [facility] 12-14-2022 11:52-0400 Body mass index (BMI) [Ratio] 26.7 kg/m2 Dr. Karine Parsons Work Phone: [facility] 12-14-2022 11:52-0400 Body weight 70.[address] Karine Parsons Work Phone: [facility] 12-14-2022 11:52-0400 Diastolic blood pressure 84 mm[Hg] Dr. Karine Parsons Work Phone: [facility] 12-14-2022 11:52-0400 Systolic blood pressure 136 mm[Hg] Dr. Karine Parsons Work Phone: [facility] 11-29-2022 15:27-0400 Body mass index (BMI) [Ratio] 24.9 kg/m2 Dr. Karine Parsons Work Phone: [facility] 11-29-2022 15:27-0400 Body weight 65.[address] Karine Parsons Work Phone: [facility] 12-31-2021 13:46-0400 Body height 162.[address] Karine Parsons Work Phone: [facility] Work Phone: 12-31-2021 13:46-0400 Body mass index (BMI) [Ratio] 25.9 kg/m2 Dr. Karine Parsons Work Phone: [facility] Work Phone: 12-31-2021 13:46-0400 Body weight 68.[address] Karine Parsons Work Phone: [facility] Work Phone: 12-31-2021 13:46-0400 Diastolic blood pressure 90 mm[Hg] Dr. Karine Parsons Work Phone: [facility] Work Phone: 12-31-2021 13:46-0400 Systolic blood pressure 148 mm[Hg] Dr. Karine Parsons Work Phone: [facility] Work Phone: 10-06-2021 13:13-0500 Body mass index (BMI) [Ratio] 26.6 kg/m2 Dr. Karine Parsons Work Phone: [facility] Work Phone: 10-06-2021 13:13-0500 Body weight 70.[address] Karine Parsons Work Phone: [facility] Work Phone: 10-06-2021 13:13-0500 Diastolic blood pressure 96 mm[Hg] Dr. Karine Parsons Work Phone: [facility] Work Phone: 10-06-2021 13:13-0500 Systolic blood pressure 140 mm[Hg] Dr. Karine Pasrons Work Phone: [facility] Work Phone: 07-19-2017 11:38-0500 BMI (Body Mass Index) 22.41 kg/m2 Aida Mena MD [facility] 07-19-2017 11:38-0500 BP Diastolic 83 mm[Hg] Aida Mena MD [facility] 07-19-2017 11:38-0500 BP Systolic 135 mm[Hg] Aida Mena MD [facility] 07-19-2017 11:38-0500 Height 162.56 cm Aida Mena MD [facility] 07-19-2017 11:38-0500 Weight 59.24 kg Aida Mena MD [facility] 12-23-2015 11:00-0400 Body Temperature 98.2 [degF] Aida Mena MD [facility] 12-23-2015 11:00-0400 BSA (Body Surface Area) 1.65 m2 Aida Mena MD [facility] 12-23-2015 11:00-0400 Pulse (Heart Rate) 88 /min Aida Mena MD [facility] 12-23-2015 11:00-0400 Respiratory Rate 16 /min Aida Mena MD [facility] Encounters Encounter Date Encounter Type Care Provider Facility Start: 03-15-2025 ambulatory Karine Parsons Facility:[facility] Start: 01-08-2025 End: 01-08-[address] Aida Mena MD -[facility] Work Phone: Start: 01-08-2025 End: 01-08-[address] Karine Parsons DO Work Phone: [facility] Work Phone: Start: 12-17-2024 End: 12-17-[address] Aida Mena MD -Laboratory, Specimen Work Phone: Start: 12-17-2024 Encounter for gynecological examination (general) (routine) with abnormal findings Aida Mena [facility] Start: 12-17-2024 End: 12-17-[address] Aida Mena MD -[facility] Work Phone: Start: 12-17-2024 End: 12-17-[address] Aida Mena MD [facility] Start: 12-17-2024 End: 12-17-2024 ambulatory Aida Mena Facility:[facility] Start: 12-17-2024 End: 12-17-2024 ambulatory Aida Mena Facility:[facility] Start: 11-02-2024 End: 11-02-[address] Karine Parsons DO Work Phone: [facility] Work Phone: Start: 11-02-2024 End: 11-02-[address] Aida Mena MD -[facility] Work Phone: Start: 11-02-2024 End: 11-02-2024 ambulatory Aida Mena Facility:[facility] Start: 10-05-2024 [facility] Start: 10-05-2024 End: 10-05-2024 Patient encounter procedure Jamari [facility]ERR[facility] Work Phone: Start: 10-05-2024 End: 10-05-2024 ambulatory Jamari PERRY Facility:[facility] Start: 07-05-2024 Encounter for genera l adult medical examination without abnormal findings [facility] Start: 05-28-2024 ambulatory Karine Malleslie Facility:[facility] Start: 05-10-2024 Encounter for other preprocedural examination Aida Mena [facility] Start: 05-07-2024 End: 05-07-2024 ambulatory Karine Malleslie Facility:[facility] Start: 04-17-2024 End: 04-17-2024 ambulatory Karine Malys Facility:[facility] Start: 04-17-2024 ambulatory Karine Malys Facility:[facility] Start: 04-02-2024 End: 04-02-2024 ambulatory Karine Malys Facility:[facility] Start: 11-02-2023 End: 11-02-2023 ambulatory [facility] Work Phone: Start: 11-02-2023 End: 11-02-2023 Patient encounter procedure [facility]-Outpatient Breast Imaging Work Phone: Start: 12-14-2022 End: 12-14-[address] Karine Parsons Work Phone: [facility] Work Phone: Start: 12-14-2022 End: 12-14-[address] Karine Parsons Work Phone: [facility]-Laboratory Start: 12-14-2022 End: 12-14-[address] Karine Parsons Work Phone: [facility] Start: 11-29-2022 Non-patient / Non-visit Dr. Lupe Parsons Work Phone: [facility] Start: 10-29-2022 End: 10-29-2022 ambulatory [facility] Work Phone: Start: 10-29-2022 End: 10-29-2022 [facility] Start: 12-31-2021 End: 12-31-[address] [facility] Start: 12-31-2021 End: 12-31-[address] Karine Parsons Work Phone: [facility] Start: 10-06-2021 End: 10-06-[address] [facility] Start: 10-06-2021 End: 10-06-[address] Karine Parsons Work Phone: [facility] Start: 09-23-2021 End: 09-23-[address] [facility] Procedures Date Procedure Procedure Detail Performing Clinician Start: 12-17-2024 Liquid based cervical cytology screening Dr. Karine Parsons DO Work Phone: Comment on above: EPITHELIAL CELL ABNORMALITY.LOW GRADE SQ UAMOUS INTRAEPITHELIAL LESION (LSIL). This liquid based Th inPrep(R) pap test was screened withthe use of an image guided system. Start: 11-02-[address] Karine Parsons DO Work Phone: Start: 10-05-2024 In-vitro immunologic test Dr. Kairne Parsons DO Work Phone: Comment on above: QuantiFERON-TB Gold Plus is a qualitativ e indirect test forM tuberculosis infection (including disease) and isintended for use in conjunction with risk assessment,radiography, and other medical and diagnostic evaluations.The QuantiFERON-TB Gold Plus result is determined bysubtracting the Nil value from either TB antigen (Ag)value. The Mitogen tube serves as a control for the test. No response to M tub erculosis antigens detected.Infection with M tuberculosis is unlikely, but high riskindividuals should be considered for additional testing(ATS/IDSA/CDC Clinical Practice Guidelines, 2017). Thereference range is an Antigen minus Nil result of <0.35IU/mL.The specimen received for QuantiFERON testing was incubatedby the ordering institution. Specific procedures outlinedin our Directory of Services and in the package insert forthe QuantiFERON Gold (In Tube) test must be followed toenable for proper stimulation of cells for the productionof interferon gamma. Chemiluminescence immunoassaymethodologyPerformed at: [facility] [id number] Director: Dennis Orantes PhD, Phone: [phone] Start: 11-02-2023 Screening mammography Start: 10-29-2022 Screening mammography Start: 09-23-[address] Karine Parsons Work Phone: Start: 07-19-2017 End: 07-19-2017 Colposcopy entire vagina w/cervix if present Aida Mena MD Work Phone: Plan of Treatment Date Care Activity Detail Author Start: 12-14-2022 Liquid based cervica l cytology screening [facility] Start: 07-19-2017 End: 07-19-2017 Appointment Appointment [facility] Path report.final Dx Spec [facility] Immunizations Immunization Date Immunization Notes Care Provider Fa kality 12-05-2020 Covid (Pfizer) Dr. Karine glynn Work Phone: [facility] 11-14-2020 Covid (Pfizer) Dr. Karine glynn Work Phone: [facility] Payers Date Payer Category Payer Self-pay [id number] 2024 Private Health Insurance [id number] 2011 Private Health Insurance [id number] Private Health Insurance [employer] [id number] Unknown [id number] 2.16.8 [id number] Unknown [id number] 2.16.8 [id number] Unknown [id number] 2.16.8 [id number] Unknown [id number] 2.16.8 [id number] Unknown [id number] 2.16.8 [id number] Unknown [id number] 2.16.8 [id number] Unknown [id number] 2.16.8 [id number] Unknown [id number] 2.16.8 [id number] Unknown [id number] 2.16.8 [id number] Unknown [id number] 2.16.8 [id number] Unknown [id number] 2.16.8 [id number] Unknown [id number] 2.16.8 [id number] Unknown [id number] 2.16.8 [id number] Social History Date Type Detail Facility Start: 10-06-2021 End: 01-19-2023 Tobacco smoking status NHIS Unknown if ever smoked [facility] Start: 1970 Sex Assigned At Female [facility] Start: 04-10-2024 End: 12-17-2024 Tobacco smoking status NHIS Never smoked tobacco (finding) [facility] Start: 11-12-2024 Sex Female (finding) [facility] Evaluation note 10-05-2024 Note Date & Type Note Facility 10-05-2024 Evaluation note Diagnosis Onset Date Resolution Encounter for pre-employment health screening examination acute October 052024 7:08am [facility] Work Phone: Evaluation note 10-05-2024 Note Date & Type Note Facility 10-05-2024 Evaluation note Diagnosis Onset Date Resolution Encounter for pre-employment health screening examination acute October 052024 7:08am Climacteric acute December 17, 2 025 1:30pm SIERRA I (cervical intraepithelial neoplasia I) chronic December 17, 2024 1:30pm Encounter for routine gynecological examination noneactive December 17, 2024 1:30pm [facility] Work Phone: Clinical Note 04-17-2024 Note Date & Type Note Facility 04-17-2024 Note [facility] Medical Records Department [address] [place] [address] History Physical Exam 04/17/24911 MR#: [id number] Acct: [id number] Name: KARINE HASSAN Rep #: [id number] : 1970 54 From: Aida Mena MD PCP: Dr. Karine Parsons, DO Status:[facility] Location: [place] [address] History and Physical Intake Vital Signs 02/02/2415:03 04/02/2415:59 04/02/2416:01 Height 5 ft 4 in 5 ft 4 in 5 ft 4 in Weight: 161 lb BMI 27.6 BP 109/73 Intake Visit Reasons: LEEP Allergies No Known Allergies Allergy (Verified 04/02/24 16:00) Medications ???Medication ???Instructions ???Recorded ???Confirmed ???Type venlafaxine 150 mg 150 mg PO DAILY #90 caps 09/26/20 04/02/24 Rx capsule,extended release 24 hr (Effexor XR) venlafaxine 75 mg capsule,extended 75 mg PO DAILY #90 caps 09/26/20 04/02/24 Rx release 24 hr (Effexor XR) lorazepam 0.5 mg tablet 0.5 mg PO DAILY PRN Anxiety 11/29/22 04/02/24 History metoprolol tartrate 25 mg tablet 25 mg PO BID 11/29/22 04/02/24 History multivitamin 1 tab PO DAILY 01/17/23 04/02/24 History estradiol 0.075 mg/24 hr See Rx Instructions .Route 12/16/23 04/02/24 Rx semiweekly transdermal patch .COMPLEX #8 patches progesterone micronized 100 mg 100 mg PO DAILY #90 caps 02/28/24 04/02/24 Rx capsule PFSH Medical History (Updated 02/07/24 @ 03:[address] Aida Mena MD) Wears contact lenses Wears glasses Depression Anxiety Non-smoker Hypertension History of irregular heartbeat Low grade squamous intraepithelial lesion (LGSIL) History of depression History of breast lump Seasonal allergies Surgical History History of bunionectomy Family History Father Anxiety Cancer pancreatic, liver DepressionAunt ArthritisUnknown Bleeding disorderGrandmother CancerBrother DepressionAunt DepressionMother Osteoporosis Social History Smoking Status: Never smoker alcohol intake: never substance use type: does not use caffeine: Yes what type of physical activity do you participate in: walking seatbelt use: always do you feel safe at home: Yes additional social history: - Works for [employer] [facility] Details: KARINE HASSAN is a 53 year old who presents for persistent cervical dysplasia for the last 6+ years. She has had low to intermediate grade changes that have not resolved. After persistence the recommendation is for continued expectant management versus excisional procedure, the patient has decided to proceed with excisional procedure. Female Reproductive History Menopausal Symptoms: No night sweats History 2 Elective abortions Hx Para 1 Spontaneous abortions Hx # Term Pregnancies Ectopic pregnancies Hx # Pregnancies Multiple births # of living children Past Pregnancies Del. Date Name GA/Weeks Outcome Route Bth Weight Infant Gen Labor Lgth Anesthesia Del Locatn Provider FOB Unknown 2005 [place] live - full term Male ROS Const Constitutional: Denies fatigue, night sweats, weight gain or weight loss ENT ENT: Reports system reviewed and no additional complaints, except as documented Cardio Card: Denies chest pain Resp Resp: Denies cough or dyspnea GI GI: Reports as per HPI; Denies abdominal pain, constipation, nausea or vomiting : Denies nipple discharge, urinary frequency, urinary incontinence, urinary hesitancy, urinary urgency, vaginal discharge, vaginal dryness, vaginal odor or vaginal pruritus Musc Musc: Denies arthralgias, back pain or muscle weakness Skin Skin/Breast: Denies alopecia, change in hair, dry skin, breast mass, breast pain, breast skin changes or nipple discharge Neuro Neuro: Reports system reviewed and no additional complaints, except as documented Psych Psych: Reports system reviewed and no additional complaints, except as documented Endo Endo: Denies cold intolerance, excessive sweating, heat intolerance or polydipsia Rizwan/Lymph Hematologic/Lymphatic: Denies easy bleeding, Denies easy bruising and Denies lymphadenopathy Exam Const General: cooperative, healthy appearing, comfortable and no acute distress Orientation: alert HENMT Head: normal to inspection and normocephalic Ears: hearing grossly normal bilaterally and external ears normal Nose: external nose normal and nares normal Face and sinus: normal facial exam Neck Neck: normal visual inspection and no lymphadenopathy Thyroid: thyroid normal Chest Chest palpation inspection: normal inspection of the chest Resp Effort Inspection: normal respiratory effort Auscultation: clear to auscultation bilaterally Cardio Rate (more content not included)... [facility] Clinical Note 10-06-2021 Note Date & Type Note Facility 10-06-2021 Note [facility] Work Phone: Pap Smear Specimen Adequacy October 06, 2021 6:10pm Comment Satisfactory for evaluation. Endocervical and/or squamous metaplasticcells (endocervical component) are present. Comment on above: Satisfactory for salma luation. Endocervical and/or squamous metaplasticcells (endocervical component) are present. Evaluation note Note Date & Type Note Facility Evaluation note Diagnosis Onset Date Low grade squamous intraepit helial lesion (LGSIL) acute SIERRA I (cervical intraepithelial neoplasia I) chronic [facility] Work Phone: Evaluation note Note Date & Type Note Facility Evaluation note No assessment information availa ble [facility] Work Phone: Evaluation note Note Date & Type Note Facility Evaluation note Diagnosis Onset Date Climacteric acute Encounter for routine gyneco logical examination noneactive [facility] Work Phone: Reason for referral (narrative) Note Date & Type Note Facility Reason for referral (narrative) No reason for referral information available [facility] Work Phone: Chief Complaint and Reason for Visit Chief Complaint SCREENING Annual (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) colposcopy LGSIL Reason for Visit Low grade squamous i ntraepithelial lesion (LGSIL) SIERRA I (cervical intraepithelial neoplasia I) Chief Complaint SCREENING Chief Complaint SCREENING Amb Documentation Annual (HOSPITAL EDUCATION 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) EORDERS Reason for Visit Climacteric Encounter for routine gynecological examination Chief Complaint SCREENING Chief Complaint Admit Date [employer], FIT TEST/ [place] 2024 7:08am PRE-EMPLOYMENT/ [facility] October 05, 2024 7:15am SCREENING November 02, 2024 7:55 am Reason for Visit Admit Date Encounter for pre-employment health scre ening examination October 05, 2024 7:08am Chief Complaint Admit Date [employer], FIT TEST/ [place] Februar 2024 7:08am PRE-EMPLOYMENT/ [facility] October 05, 2024 7:15am SCREENING November 02, 2024 7:55 am Annual (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) December 17, 2024 1:3 0pm Discuss pap *copay $20 January 08, 2025 3: 08pm Reason for Visit Admit Date Encounter for pre-employment health scre ening examination October 05, 2024 7:08am Climacteric December 17, 2024 1:3 0pm SIERRA I (cervical intraepithelial neoplasi a I) December 17, 2024 1:30pm Encounter for routine gynecological exam ination December 17, 2024 1:30pm Family History No Family History Records Found Relationship Condition Age at Onset Recorded Date/T sharee father Anxiety Unknown Malignant neoplasm Unknown Depression Unknown aunt Arthritis Unknown Not Specified Hemorrhagic disorder Unknown grandmother Malignant neoplasm Unknown brother Depression Unknown aunt Depression Unknown mother Osteoporosis Unknown Relationship Condition Age at Onset Recorded Date/T sharee father Anxiety Unknown Malignant neoplasm Unknown Depression Unknown aunt Arthritis Unknown unrelated friend Hemorrhagic disorder Unknown grandmother Malignant neoplasm Unknown brother Depression Unknown aunt Depression Unknown mother Osteoporosis Unknown Advance Directives No Advanced Directives Records Found Advance Directive Response Recorded Date/ Time Living Will Yes January 17, 2023 1 2:17pm Power of Assistant Professor Of Mathematics Yes January 17, 2023 12:17pm Summary Purpose Additional Source Comments Goals (unrecognized section and content) Goals may be documented in a n alternate sectionGoals may be documented in an alternate sectionGoals may be documented in an alternate sectionGoals may be documented in an alternate sectionGoals may be documented in an alternate sectionGoals may be documented in an alternate section Care Teams (unrecognized sec tion and content) Team Status: Active Member Role Status Dates Dr. Karine Parsons DO Family Provider Active Dr. Karine Parsons DO Primary Care Provider Active Team Status: Inactive Member Role Status Dates Dr. Karine Parsons DO Primary Care Provider Active Dr. Aida Mena MD Attending Provider Active Team Status: Inactive Member Role Status Dates Dr. Karine Parsons DO Primary Care Provider, Referring Sheri hager Active Dr. Aida Mena MD Attending Provider Active Team Status: Active Member Role Status Dates Dr. Karine Parsons DO Primary Care Provider Active Tamara Ellis Attending Provider Active Team Status: Inactive Member Role Status Dates Dr. Karine Parsons DO Primary Care Provider Active Dr. Aida Mena MD Attending Provider, Referr ing Provider Active Team Status: Active Member Role Status Dates Dr. aKrine Parsons DO Primary Care Provider Active Team Status: Inactive Member Role Status Dates Dr. Karine Parsons DO Primary Care Provider Active Start: October 05, 2024 End: October 05, 2024 Dr. Karine Parsons DO Referring Provider Active St art: October 05, 2024 End: October 05, 2024 [place] Farooq Attending Provider Active Sta rt: October 05, 2024 End: October 05, 2024 Team Status: Active Member Role Status Dates Dr. Karine Parsons DO Primary Care Provider Active Start: October 05, 2024 [place] Farooq Attending Provider Active Sta rt: October 05, 2024 [place] Farooq Referring Provider Active Sta rt: October 05, 2024 Team Status: Inactive Member Role Status Dates Dr. Karine Parsons DO Primary Care Provider Active Start: November 02, 2024 End: November 02, 2024 Dr. Aida Mena MD Attending Provider Active Start: November 02, 2024 End: November 02, 2024 Dr. Aida Mena MD Referring Provider Active Start: November 02, 2024 End: November 02, 2024 Team Status: Inactive Member Role Status Dates Dr. Karine Parsons DO Primary Care Provider Active Start: December 17, 2024 End: December 17, 2024 Dr. Karine Parsons DO Referring Provider Active St art: December 17, 2024 End: December 17, 2024 Dr. Aida Mena MD Attending Provider Active Start: December 17, 2024 End: December 17, 2024 Team Status: Inactive Member Role Status Dates Dr. Karine Parsons DO Primary Care Provider Active Start: December 17, 2024 End: December 17, 2024 Dr. Aida Mena MD Attending Provider Active Start: December 17, 2024 End: December 17, 2024 Dr. Aida Mena MD Referring Provider Active Start: December 17, 2024 End: December 17, 2024 Team Status: Inactive Member Role Status Dates Dr. Karine Parsons DO Primary Care Provider Active Start: January 08, 2025 End: January 08, 2025 Dr. Karine Parsons DO Referring Provider Active St art: January 08, 2025 End: January 08, 2025 Dr. Aida Mena MD Attending Provider Active Start: January 08, 2025 End: January 08, 2025 INFORMATION SOURCE (unrecogn ized section and content) DATE CREATED AUTHOR 02/26/2025 [facility] FOR RECORDS PERTAINING TO PATIENTS WHO ARE OR HAVE BEEN ENROLLED IN A CHEMICAL DEPENDENCY/SUBSTANCEABUSE PROGRAM, SOME INFORMATION MAY BE OMITTED. This clinical summary was aggregated from multiple sources. Caution should be exercised in using it in the provision of clinical care. This summary normalizes information from multiple sources, and as a consequence, information in this document may materially change the coding, format and clinical context of patient data. In addition, data may be omitted in some cases. CLINICAL DECISIONS SHOULD BE BASED ON THE PRIMARY CLINICAL RECORDS. [facility]. provides no warranty or guarantee of the accuracy or completeness of information in this document.
--- OUTSIDE RECORDS SUMMARY | 2025-03-12 21:36 | XMS RPT_ITS | CCD ---
Author Organization [facility] CliniSyri Care Team Providers Care Thermospray Operator Name Role Phone Aida Mena MD Unavailable [phone] Karine Parsons Primary Care Provider [phone] Dr. Karine Parsons Referring Provider [phone] Aida Mena Attending Provider [phone] Dr. Yadira Hidalgo Attending Provider Dr. Karine Parsons Primary Care Provider [phone] Tamara Ellis Attending Provider Unavailable Dr. Karine Parsons Referring Provider [phone] Aida Mena Attending Provider [phone] Dr. Karine Parsons DO Primary Care Provider Dr. Karine Parsons DO Referring Provider [phone] Jamari Stone Attending Provider Jamari Stone Referring Provider [phone] Aida Mena MD Attending Provider Dr. Aida Mena MD Referring Provider [phone] Malys, Karine Primary Care Unavailable Jamari Stone Attending Unavailable Malys, Karine Referring Unavailable Malys, Karine Primary Care Unavailable Aida Mena Attending Unavailable Aida Mena Referring Unavailable Jamari Stone Attending Unavailable Jamari Stone Referring Unavailable Malys, [...] Sig (Normalized) Sig (Original) 84 hr estradiol 0.87895 mg/hr transdermal system (20 sources) Estrogen Start: [...] 1 PO daily on days 2-5 AZITHROMYCIN 20658706684 Karine Parsons DO ciprofloxacin 500 mg oral tablet (4 sources) Quinolone Antimicrobial Start: 12-23-2015 End: 07-19-2017 take 1 tablet by mouth twice daily CIPROFLOXACIN HCL 500 MG TABS 1 po twice daily x 5 days CIPROFLOXACIN HCL 84034408337 Aida Mena MD Norgestimate-Ethiny l Estradiol (20 [...] x 1 dose for yeast infection FLUCONAZOLE 22074415557 Aida Mena MD FLUoxetine 40 mg oral capsule (8 sources) Serotonin Reuptake Inhibitor Start: 10-03-2014 End: 01-27-2015 take 1 capsule by mouth once daily FLUOXETINE HCL 40 MG CAPS 1 po daily FLUOXETINE HCL 01846747999 Karine Parsons DO End: 10-03-2014 take 1 capsule by mouth once daily FLUOXETINE HCL 20 MG CAPS PO QD FLUOXETINE HCL 24987595662 Karine Parsons DO fluticasone propionate 0.05 mg/actuat metered dose nasal spray (4 sources) Corticosteroid End: 07-19-2017 FLUTICASONE PROPIONATE 50 MCG/ACT SUSP one spray Twice daily FLUTICASONE PROPIONATE 80387392274 Karine A Malys, DO loratadine 10 mg oral capsule (2 sources) take 1 capsule by mouth once daily CLARITIN 10 MG CAPS PO QD LORATADINE 14919303561 Karine Parsons DO metroNIDAZOLE 500 mg oral tablet (8 sources) Nitroimidazole Antimicrobial Start: 04-23-2015 End: 12-23-2015 take 1 tablet by mouth twice daily METRONIDAZOLE 500 MG TABS 1 po Twice daily x 7 days METRONIDAZOLE 03408068313 Karine Parsons DO Start: 12-05-2014 End: 01-27-2015 take 1 tablet by mouth twice daily FLAGYL 500 MG TABS 1 po Twice daily x 7 days METRONIDAZOLE 52163482350 Karine Parsons DO MULTIPLE VITAMINS-MINERALS (2 sources) take 1 capsule by mouth once daily CHOICEFUL MULTIVITAMIN CAPS PO QD MULTIPLE VITAMINS-MINERALS 63102400943 Karine Parsons, DO Multivitamin (Hair,Nails And Skin [...] 1 po daily as directed NORETHINDRON-ETHINYL ESTRAD-FE 96232252816 Bakari Hoff DO Start: 12-05-2014 End: 07-19-2017 take 1 tablet by mouth once daily ESTROSTEP FE 1-20/1-30/1-35 MG-MCG TABS 1 po daily as directed NORETHINDRON-ETHINYL ESTRAD-FE 75117147070 Aida Mena MD NORGESTIM-ETH ESTRAD TRIPHASIC (2 sources) Start: 11-07-2015 take 1 tablet by mouth once daily TRI-SPRINTEC 0.18/0.215/0.25 MG-35 MCG TABS 1 po daily as directed NORGESTIM-ETH ESTRAD TRIPHASIC 18382805695 Karine Parsons DO NORGESTIMATE-ETH ESTRADIOL TABS (4 sources) take 28 tablets by mouth once daily SPRINTEC 28 TABS PO QD NORGESTIMATE-ETH ESTRADIOL TABS 90402872782 Karine Parsons DO End: 01-27-2015 take 28 tablets by mouth once daily SPRINTEC 28 TABS PO QD NORGESTIMATE-ETH ESTRADIOL TABS 75806685160 Karine Parsons DO triamcinolone acetonide 5 mg/ml topical cream (4 sources) Corticosteroid Start: 03-05-2015 End: 07-19-2017 TRIAMCINOLONE ACETONIDE 0.5 % CREA apply to affected area twice daily TRIAMCINOLONE ACETONIDE 96754123255 Aida Mena MD 24 hr venlafaxine 150 [...] 2:14pm Start: 11-07-2015 take 1 capsule by [facility] once daily VENLAFAXINE HCL ER 75 MG [id number] 1 po daily VENLAFAXINE HCL 87844712955 Karine Parsons DO Start: 12-05-2014 End: 12-23-2015 take 1 tablet by mouth once daily in the morning, then take 2 tablets by mouth once daily VENLAFAXINE HCL 37.5 MG TABS 1 po daily in AM x 14 days then 2 po daily VENLAFAXINE HCL 97236909401 Karine Parsons, DO Problems Active Problems Problem [...] repeat pap and hpv in 1 year; Sunshine 09/2020 mild changes repeat PAP/HPV 09/2021 LEEP [...] Test Name Value Interpretation Reference Range Facility District Service Manager Office Visit Reporton 01-08-2025 District Service Manager Office Visit Report [facility] [address], [address] [place] [address] OFFICE VISIT Date of Service: 01/08/25 MR#: [id number] Acct: [id number] Name: KARINE HASSAN Rep #: [id number] : 1970 Provider: Dr. Aida cuevas MD Age/Sex: 54/F Location: [facility] Status: Signed Intake Vital Signs 12/17/24 13:39 01/08/25 15:12 01/08/25 15:13 Height 5 ft 4 in 5 ft 4 in 5 ft 4 in Weight: 166 lb 2 oz BMI 28.5 BP 142/85 H Intake Visit Reasons: Discuss pap *copay $20 Dev Manager Required: No Is patient in pain?: No [...] Weight Infant Gen Labor Lgth Anesthesia [facility] Provider FOB Unknown 2005 Us[address] live - [...] acute distress and well developed Orientation: alert HENKS Head: normal to inspection and normocephalic Ears: [...] on above: Order Comment: Speci men Comment: [id number] Comment: No. of containers..01 ThinPrep Vial Result Comment: Sati sfactory for evaluation. Endocervical and/or squamous metaplastic cells (endocervical component) are present. Performed By: #### L 7400.0280 ####[facility] [address] [place], [address] COMM . Normal . [facility] Comment on above: Order Comment: Speci men Comment: [id number] Comment: No. of containers..01 ThinPrep Vial Performed By: #### L 7400.0280 ####[facility] [address] [place], [place], [address] COMMENT Comment Normal . [facility] Comment on above: Order Comment: Speci men Comment: [id number] Comment: No. of containers..01 ThinPrep Vial Result Comment: This liquid based ThinPrep(R) pap test was screened with the use of an image guided system. Performed By: #### L 7400.0280 ####[facility] [address] [place], [place], [address] DIAG Comment Abnormal . [facility] Comment on above: Order Comment: Speci men Comment: [id number] Comment: No. of containers..01 ThinPrep Vial Result Comment: EPIT HELIAL CELL ABNORMALITY. LOW GRADE SQUAMOUS INTRAEPITHELIAL LESION (LSIL). Performed By: #### L 7400.0280 ####[facility] [address] [place], [place], [address] HPV APTIMA, HR Negative Normal Negative [facility] Comment on above: Order Comment: Speci men Comment: [id number] Comment: No. of containers..01 ThinPrep Vial Result Comment: This nucleic acid amplification test detects fourteen high- risk HPV types (16,18,31,33,35,39,45,51,52,56,58,59,66,68) without differentiation. Performed By: #### L 7400.0280 ####[facility] [address] [place], [place], [address] HPV Leeann Rfx Comment Normal . [facility] Comment on above: Order Comment: Speci men Comment: [id number] Comment: No. of containers..01 ThinPrep Vial Result Comment: Crit eria not met, HPV Genotype not performed. Performed at: - [address] [id number] [employer] Crafter: Marleni Cooley MD, Phone: [phone] Performed at: = - [facility] [address] [id number] [employer] Crafter: Marleni Cooley MD, Phone: [phone] Performed By: #### L 7400.0280 ####[facility] [address] [place], [place], [address] PAPSMR Comment Normal . [facility] Comment on above: Order Comment: Speci men Comment: [id number] Comment: No. of containers..01 ThinPrep Vial Result [...] 7400.0280 ####[facility] [address] [place], [place], [address] Path.prov.IDC-9 Comment Normal . [facility] Comment on above: Order Comment: Speci men Comment: [id number] Comment: No. of containers..01 ThinPrep Vial Result Comment: R87. 612 Performed By: #### L 7400.0280 ####[facility] [address] [place], [place], [address] PERFORM Comment Normal . [facility] Comment on above: Order Comment: Speci men Comment: [id number] Comment: No. of containers..01 ThinPrep Vial Result Comment: Oscar Corcoran, Analytics Architect (ASCP) Performed By: #### L 7400.0280 ####[facility] [address] [place], [address] RECOMM Comment Abnormal . [facility] Comment on above: Order Comment: Speci men Comment: [id number] Comment: No. of containers..01 ThinPrep Vial Result Comment: Sugg est follow up as clinically appropriate. Performed By: #### L 7400.0280 ####[facility] [address] [place], [place], [address] SIGN Comment Normal . [facility] Comment on above: Order Comment: Speci men Comment: [id number] Comment: No. of containers..01 ThinPrep Vial Result Comment: Bell Wilde MD, Pathologist Performed By: #### L 7400.0280 ####[facility] [address] [place], [place], [address] Cervical or vaginal specimen microscopic examination by liquid based cytology (reportOrdered By: Aida Mena on 12-17-2024 Cytology report Cyto stain.thin prep Doc (Cvx/Vag) Comment . [facility] Comment on above: Criteria not met, HP V Genotype not performed.Performed at: [address] [id number] Director: Marleni Cooley MD, Phone: [phone] at: =[address] [place] [id number] Director: Marleni Cooley MD, Phone: [phone] Cervical or vagninal specime n microscopic examination [...] - CytologyOrdered By: Aida Mena on 12-17-2024 Analytics Architect Cyto stain Nom (Cvx/Vag) [ID] Comment . [facility] Comment on above: R87.612 District Service Manager Office Visit Reporton 12-17-2024 District Service Manager Office Visit Report [facility] [address] [place] [address], [address] [place] [address] OFFICE VISIT Date of Service: 12/17/24 MR#: [id number] Acct: [id number] Name: KARINE HASSAN Rep #: [id number] : 1970 Provider: Dr. 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 Normal [facility] Breast imaging reportOrdered By: Elizabeth Conti on 11-02-2024 Study report [facility] Imaging Services [address] [place], [place] [id number] SCRN MAMM (CAD)W/GUSTAVO BILAT MR#: [id number] Acct: [id number] Name: KARINE HASSAN Rep #: [id number] : 1970 F 54 From: Nereida Conti MD PCP: Dr. Karine Parsons, Status: [facility] Study:SCRN MAMM (CAD)W/GUSTAVO BILAT Date of Exa m: 11/02/24 Exam# [id number] Ordering Dr: Aida Newton MD PROCEDURE: SCRN [...] of the results by letter. Reading Location: [facility] CC: Dr. Karine Parsons DO; Dr. Aida Mena MD ~ Civil Clerk: Signed [facility] SCRN MAMM (CAD)W/GUSTAVO BILATo n 11-02-2024 SCRN MAMM (CAD)W/GUSTAVO BILAT [facility] Imaging Services [address] [place] [address] SCRN MAMM (CAD)W/GUSTAVO BILAT MR#: [id number] Acct: [id number] Name: RAMILAKARINE Courtney Cristian Rep #: [id number] : 1970 F 54 From: Elizabeth Conti MD PCP: Dr. Karine Parsons DO Status: REG CLI Study: SCRN MAMM (CAD)W/GUSTAVO BILAT Date of Exam: 03/22 Exam# [id number] Ordering Dr: Aida Mena PROCEDURE: SCRN MAMM [...] of the results by letter. Reading Location: [id number] CC: Dr. Karine Parsons DO; Dr. Aida Mena MD Civil Clerk: Signed Normal [facility] Office Visit Reporton 2024 Office Visit Report [facility] [address] [place] [address] OFFICE VISIT Date of Service: 10/05/24 MR#: [id number] Acct: [id number] Patient: KARINE HASSAN Rep #: [id number] : 1970 Provider: ORLANDO Fitzpatrick Age/Sex: 54/F Location: [facility] Status: Signed Intake Vital Signs 05/07/24 15:21 Height 5 ft 4 in Intake Visit Reasons: QUANTIFERON, FIT TEST/ [place] Chief Complaint: colposcopy Allergies No Known Allergies Allergy (Verified 05/07/24 15:21) Office Procedures [facility] Billing Sheet Testing Pre-Employment PE: Yes Respirator Fit Testing: Yes Occquant-Quantiferon: Yes 10/18/24 0649 Date Jamari PERRY Cosigner Signature: Date (if applicable) CC: Normal [facility] Quantiferon TB-Gold+on 10-10 QFT MITOGEN DURAN > 10.00 Normal . [facility] Comment on above: Performed By: #### L 0420.1773 ####[facility] [address] [place], [place], [address] QFT NIL VALUE 0.02 IU/mL Normal . [facility] Comment on above: Performed By: #### L 3400.8000 ####[facility] [address] [place], [address] QFT TB GOLD+ Comment Normal [...] 3400.8000 ####[facility] [address] [place], [address] QFT TB POS CRIT Negative [...] interferon gamma. Chemiluminescence immunoassay methodology Performed at: [facility] [employer] [id number] [employer]: Dennis Orantes PhD, Phone: [phone] Performed By: #### L 3400.8000 ####[facility] [address] [place], [address] QFT TB1+ AG DURAN 0 IU/mL Normal . [facility] Comment on above: Performed By: #### L 3400.8000 ####[facility] [address] [place], [address] QFT TB2+ AG DURAN 0.01 IU/mL Normal . [facility] Comment on above: Performed By: #### L 3400.8000 ####[facility] [address] [place], [address] M. tuberculosis tuberculin s sienna IFN-g Ql [...] the productionof interferon gamma. Chemiluminescence immunoassaymethodologyPerformed at: [facility] [id number] Director: Dennis Orantes PhD, Phone: [phone] Urgent Care Visit Reporton 0 10-05-2024 Urgent Care Visit Report [facility] [address], [address] [place] [address] OFFICE VISIT Date of Service: 10/05/24 MR#: [id number] Acct: [id number] Name: KARINE HASSAN Rep #: [id number] : 1970 Provider: ORLANDO Fitzpatrick Age/Sex: 54/F Location: [facility] Status: Signed Intake Vital Signs 05/07/24 15:21 [...] Normal [facility] District Service Manager Office Visit Reporton 05-07-2024 District Service Manager Office Visit Report [facility] [address], [address] [place] [address] OFFICE VISIT Date of Service: 05/07/24 MR#: [id number] Acct: [id number] Name: KARINE HASSAN Rep #: [id number] : 1970 Provider: Dr. Aida cuevas MD Age/Sex: 54/F Location: [facility] Status: Signed Intake Vital Signs 02/03/24 15:03 04/17/24 13:45 05/07/24 15:20 05/07/24 15:21 Height 5 ft 4 in 5 ft 4 in 5 ft 4 in 5 ft 4 in Weight: 167 lb BMI 28.6 BP 138/86 H Blood Pressure Location Rt brachial Position Sitting Intake Visit Reasons: 2 wk LEEP Dev Manager Required: No Is patient in pain?: No [...] Yes additional social history: - Works for [employer] HPI 2 wk LEEP Details: KARINE [...] repeat pap and hpv in 1 year; Sunshine 09/2020 mild changes repeat PAP/HPV 09/2021 Plan fu annually 05/09/24 0857 Date Aida Mena MD Cosign Signature: Date (if applicable) CC: Normal [facility] Discharge Instructionon 03-30 Discharge Instruction [facility] Medical Records Department [address] [place] [address] Instructions for Home/Discharge Instructions 04/17/24 1502 MR#: [id number] Acct: [id number] Name: SONYAKARINE M Rep #: [id number] : 1970 54 From: Aida Mena MD PCP: Dr. Karine Parsons, DO Status:DEP [facility] Discharge Instructions Diet Discharge Diet: No restrictions [...] Up With: Aida Mena MD When: Call [phone] for follow-up appointment. Test Results: Test results from this visit will be discussed in further detail at your follow-up appointment, if applicable. Discharge Plan Admission Attending Provider: Aida Mena Primary Care Provider: Karine Parsons Instructions Print Language: Tajik Discharge Orders/Prescriptions Prescriptions: No Action venlafaxine [Effexor [...] be placed): Home, Self Care 04/17/24 1610 Aida Mena MD CC: Dr. Karine Parsons DO Signed [facility] MR/POSTOP.[facility] 04-17-2024 MR/POSTOP.[facility] Medical Records Department [address] [place] [address] Anesthesia Postop Eval I 04/17/24 1507 MR#: [id number] Acct: [id number] Name: KARINE HASSAN Cristian Rep #: [id number] : 1970 54 From: Kassandra Melissa CRNA PCP: Dr. Karine Parsons DO Status:REG SDC Y Race: C Location: [place] [address] Anesthesia: Postop Eval I Current Vital Signs [...] Normal [facility] MR/MOXCXCZB8qo 04-17-2024 MR/POSTOPAN2 [facility] Medical Records Department [address] [place] [address] Anesthesia Postop Eval II 04/17/241809 MR#: [id number] Acct: [id number] Name: KARINE HASSAN Rep #: [id number] : 1970 54 From: Tarun Barcenas MD PCP: Dr. Karine Parsons, DO Status:DEP [facility] Y Race: C Location: [facility] Anesthesia Postop Eval I Sum Postop Eval Completion status Anesthesia document: Postop Eval 1 completed: Yes Anesthesia Postop Eval I Summary Anesthesia Postop Eval I Summary: Anesthesia Postop Eval I: Assessment Summary Airway patent Yes 04/17/24 15:07 SOFTWARE INTEGRATION DEVELOPER.SKOBY Spontaneous unlabored Yes 04/17/24 15:07 SOFTWARE INTEGRATION DEVELOPER.SKOBY respirations Mental status Awake,Calm 04/17/24 15:07 SOFTWARE INTEGRATION DEVELOPER.SKOBY nausea No 04/17/24 15:07 SOFTWARE INTEGRATION DEVELOPER.SKOBY Vomiting No 04/17/24 15:07 SOFTWARE INTEGRATION DEVELOPER.SKOBY Anesthesia Postop Eval I: Fluid Summary Crystalloid volume administer 600 04/17/24 15:07 SOFTWARE INTEGRATION DEVELOPER.SKOBY (ml) Colloids volume administered ( ml) Blood Product volume administered (ml) Total IV fluid infused 600 04/17/24 15:07 SOFTWARE INTEGRATION DEVELOPER.SKOBY Anesthesia Postop Eval I: Summary Notes Anesthesia Complication No 04/17/24 15:07 SOFTWARE INTEGRATION DEVELOPER.SKOBY Anesthesia Complication Comment: Post-operative progress note Anesthesia: Postop Eval II Evaluation Mental status: Awake Pain Level: 0 nausea: No Vomiting: No 04/17/241809 Date Tarun Barcenas MD Cosigner Signature: Date CC: Signed Normal [facility] Operative Reporton Operative Report [facility] Medical Records Department [address] [place] [address] Operative Report 04/17/24 1458 MR#: [id number] Acct: [id number] Name: KARINE HASSAN Rep #: [id number] : 1970 54 From: Aida Mena MD PCP: Dr. Karine Parsons DO Status:[facility] Location: [place] [address] Problems Associated Problem List Diagnoses (1) SIERRA I (cervical intraepithelial neoplasia I): Report of Operation Date of Procedure: 04/17/24 Pre-Operative Diagnosis: see problem list Post-Operative Diagnosis: same Surgery/Procedure Performed:: LEEP procedure Description of Surgical Findings:: grossly nl cervix Surgeon: Aida Mena siding installer: None Type of Anesthesia: General and Local [...] Multi Select Codes Urinary/Genital Urinary/Genital CPT Codes: 79877 LEEP 04/17/24 1502 Cosigner Signature (if applicable): CC: Dr. Karine Parsons DO; Dr. Aida Mena MD Signed [facility] ,Urineon 04-17-2024 Beta HCG ( test) Ql (U) Negative [facility] Comment on above: Result Comment: Very dilute urine specimens, as indicated by a low specific gravity, may not contain sales representative rural power levels of hCG. If is still suspected, a first morning urine specimen should be collected 48 hours later and tested. Performed By: #### L 400.7600 ####[facility] [address] [place], [place], [address] Surgery Specimen Level Charity 04-17-2024 Surgery Specimen Level IV ----- Patient Age/Sex Location Account Attending Physician ----- KARINE HASSAN 54/F [facility] [id number] Dr. Aida Mena MD ----- Specimen: [id number] Received: 04/17/24 Status: JAMILA Colin Num: [id number] Spec Type: Denise Rico Dr: Dr. Aida [...] for dysplasia. SJ/mr 04/19/2024 COMMENT B. Immunohistochemistry ([id number]) for surrogate HPV marker (p16) supports the above diagnosis. Please make reference to previous specimen [id number] cervix, 5o'clock, biopsy with diagnosis of mild [...] Account Attending Physician ----- KARINE HASSAN 54/ [facility] [id number] Dr. Aida Mena MD ----- black. The [...] submitted in one cassette. SJ 04/18/2024 TC:5 CPT:92100,85842p8 ----- Patient Age/Sex Location Account Attending Physician ----- KARINE HASSAN 54/ [facility] [id number] Dr. Aida Mena MD ----- Signed (signature on file) Dr. Kavon Izaguirre MD 04/20/24 1137 ----- Normal [facility] Comment on above: Performed By: #### P SUIV ####[facility] [address] [place], [place], [address] p16 (initial)on 04-17-2024 p16 (initial) --------- ----- Patient Age/Sex Location Account Attending Physician ----- KARINE HASSAN 54/F [facility] [id number] Dr. Aida Mena MD ----- Specimen: [id number] Received: 04/19/24 Status: JAMILA Colin Num: [id number] Spec Type: IMMUNO Subm Dr: Dr. Aida Mena MD PHYSICIAN INSTITUTION [place] [address] SPECIMEN INFORMATION: Tissue Source: B- Posterior cervical lip Clinical Info: SIERRA I (cervical intraepithelial neoplasia I) Specimen Number: [id number] CPT code: 44897,54302 METHODOLOGY: Deparaffinized sections of prefer/formalin-fixed tissue or [...] [facility] [address] [place], [address] CBC-Complete Blood Cnt No ffon 04-13-2024 Erythrocyte distribution width (RBC) [Ratio] 12.4 % Normal 11.6-14.6 [facility] Comment on above: Performed By: #### B TSPAT, L400.7600, L100.0500 #### [facility] [address] [place], [address] Hematocrit (Bld) [Volume fraction] 40.8 % Normal 37-47 [facility] Comment on above: Performed By: #### B TSPAT, L400.7600, L100.0500 #### [facility] [address] [place], [address] Hemoglobin (Bld) [Mass/Vol] 13.9 g/dL Normal 12.0-15.0 [facility] Comment on above: Performed By: #### B TSPAT, L400.7600, L100.0500 #### [facility] [address] [place], [address] MCH (RBC) [Entitic mass] 31.8 pg Normal 27.0-32.0 [facility] Comment on above: Performed By: #### B TSPAT, L400.7600, L100.0500 #### [facility] [address] [place], [address] MCHC (RBC) [Mass/Vol] 34.1 g/dL Normal 32-36 [facility] Comment on above: Performed By: #### B TSPAT, L400.7600, L100.0500 #### [facility] [address] [place], [address] MCV (RBC) [Entitic vol] 93.4 fL Normal 81-99 [facility] Comment on above: Performed By: #### B TSPAT, L400.7600, L100.0500 #### [facility] [address] [place], [address] Platelet mean volume (Bld) [Entitic vol] 9.6 fL Normal 6.2-12.0 [facility] Comment on above: Performed By: #### B TSPAT, L400.7600, L100.0500 #### [facility] [address] [place], [address] Platelets (Bld) [#/Vol] 273 10*3/uL Normal 150-450 [facility] Comment on above: Performed By: #### B TSPAT, L400.7600, L100.0500 #### [facility] [address] [place], [address] RBC (Bld) [#/Vol] 4.37 10*6/uL Normal 4.2-5.4 [facility] Comment on above: Performed By: #### B TSPAT, L400.7600, L100.0500 #### [facility] [address] [place], [address] RDW SD 42.7 fl Normal 35.1-43.9 [facility] Comment on above: Performed By: #### B TSPAT, L400.7600, L100.0500 #### [facility] [address] [place], [address] WBC (Bld) [#/Vol] 7.8 10*3/uL Normal 4.4-11.0 [facility] Comment on above: Performed By: #### B TSPAT, L400.7600, L100.0500 #### [facility] [address] [place], [address] ,Urineon 04-13-2024 Beta HCG ( test) Ql (U) Negative Normal [facility] Comment on above: Result Comment: Very dilute urine specimens, as indicated by a low specific gravity, may not contain sales representative rural power levels of hCG. If is still suspected, a first morning urine specimen should be collected 48 hours later and tested. Performed By: #### B TSPAT, L400.7600, L100.0500 #### [facility] [address] [place], [address] Type AND Screen - PAT ONLYon 04-13-2024 Ab SCREEN GEL Negative Normal [facility] Comment on above: Order Comment: Reaso n for Laboratory Test PREOP [id number] No N N S 0600 LEEP Performed By: #### B TSPAT, L400.7600, L100.0500 #### [facility] [address] [place], [address] District Service Manager Office Visit Reporton 04-02-2024 District Service Manager Office Visit Report [facility] [address] [place] [address] OFFICE VISIT Date of Service: 04/02/24 MR#: [id number] Acct: [id number] Name: KARINE HASSAN Rep #: [id number] : 1970 Provider: Dr. Aida cuevas MD Age/Sex: 53/F Location: [facility] Status: Signed Intake Vital Signs 02/03/24 15:03 [...] social history: - Works for [employer] [facility] Details: KARINE HASSAN is a 53 year [...] comfortable and no acute distress Orientation: alert [facility] Head: normal to inspection and normocephalic Ears: [...] high- risk HPV types (16,18,31,33,35,39,45,51,52,56,58,59,66,68)without differentiation.Performed at: [address] [id number] Director: Marleni Cooley MD, Phone: [phone] at: =[address] [id number] Director: Marleni Cooley MD, Phone: [phone] Laboratory - [employer] Cyto stain Nom (Cvx/Vag) [ID] Comment [facility] [...] current medications (procedure) Done Invalid Interpretation Code [facility] Fall risk assessment No Invalid Interpretation Code [facility] General categories [Interpretation] of Cervical or vaginal smear or scraping by Cyto stain no Invalid Interpretation Code [facility] Tobacco smoking status NHIS Never Invalid Interpretation Code [facility] Tobacco use CPHS Never smoker Invalid Interpretation Code [facility] Office Visit: colpon 017 General categories [Interpretation] of Cervical or vaginal smear or scraping by Cyto stain Abnormal Invalid Interpretation Code [facility] Office Visit: UTI Sxon 12-22 Bilirubin Ql (U) 1+ Invalid Interpretation Code [facility] blood in urine (hemoglobin) by dipstick 3+ Invalid Interpretation Code [facility] specific gravity, urine 1.030 Invalid Interpretation Code [facility] Urine, appearance cloudy with floaters Invalid Interpretation Code [facility] Urine, color dark yellow/brown Invalid Interpretation Code [facility] Urine, glucose presence Negative Invalid Interpretation Code [facility] Urine, ketones presence Negative Invalid Interpretation Code [facility] Urine, leukocyte esterase presence 3+ Invalid Interpretation Code [facility] Urine, nitrite presence Positive Invalid Interpretation Code [facility] Urine, pH 6.5 [pH] Invalid Interpretation Code [facility] Urine, protein Albumin [Presence] in Urine Inva lid Interpretation Code [facility] Urine, urobilinogen presence 0.2 Invalid Interpretation Code [facility] Lab Report: Glucoseon 2015 Glucose mass conc 87 mg/dL Invalid Interpretation Code 70-110 [facility] Lab Report: Lipid Profileon 12-10-2015 Cholesterol 193 mg/dL Invalid Interpretation Code 200 [facility] HDL Cholesterol 93 mg/dL Invalid Interpretation Code [facility] LDL Cholesterol 82 mg/dL Invalid Interpretation Code 0-130 [facility] Triglyceride 92 mg/dL Invalid Interpretation Code [facility] very low density lipoproteins 18 mg/dL Invalid Interpretation Code 5-40 [facility] Vital Signs Date Time Vital Sign [...] Systolic blood pressure 140 mm[Hg] Dr. Karine Parsons Work Phone: [facility] Work Phone: 07-19-2017 11:38-0500 BMI (Body Mass Index) 22.41 kg/m2 Aida Mena MD [facility] 07-19-2017 11:38-0500 BP Diastolic 83 mm[Hg] Aida Mena MD [facility] 07-19-2017 11:38-0500 BP Systolic 135 mm[Hg] Aida Mena MD [facility] 07-19-2017 11:38-0500 Height 162.56 cm iAda Mena MD [facility] 07-19-2017 11:38-0500 Weight 59.24 kg Aida Mena MD [facility] 12-23-2015 11:00-0400 Body Temperature 98.2 [degF] Aida Mena MD [facility] 12-23-2015 11:00-0400 BSA (Body Surface Area) 1.65 m2 Aida Mena MD [facility] 12-23-2015 11:00-0400 Pulse (Heart Rate) 88 /min Aida Mena MD [facility] 12-23-2015 11:00-0400 Respiratory Rate 16 /min Aida Mena MD [facility] Encounters Encounter Date Encounter Type Care Provider Facility Start: 03-15-2025 ambulatory Karine Parsons Facility:[facility] Start: 01-08-2025 End: 01-08-[address] Aida Mena MD -[facility] Work Phone: Start: 01-08-2025 End: 01-08-[address] Karine Parsons DO Work Phone: [facility] Work Phone: Start: 12-17-2024 End: 12-17-[address] Aida Mena MD -Laboratory, Specimen Work Phone: Start: 12-17-2024 Encounter for gynecological examination (general) (routine) with abnormal findings Aida Mena [facility] Start: 12-17-2024 End: 12-17-[address] Aida Mena MD -[facility] Work Phone: Start: 12-17-2024 End: 12-17-2024 [...] Start: 10-05-2024 [facility] Start: 10-05-2024 End: 10-05-2024 Patient encounter procedure Jamari PERRY [facility] Work Phone: Start: 10-05-2024 End: 10-05-2024 ambulatory Jamari PERRY Facility:[facility] Start: 07-05-2024 Encounter for genera l adult medical examination without abnormal findings [facility] Start: 05-28-2024 ambulatory Karine Malleslie Facility:[facility] Start: 05-10-2024 Encounter for other preprocedural examination [...] encounter procedure Dr. Karine Parsons Work Phone: [facility] Start: 11-29-2022 Non-patient / Non-visit Dr. Lupe Parsons Work Phone: [facility] Start: 10-29-2022 End: 10-29-2022 ambulatory [facility] Work Phone: Start: 10-29-2022 End: 10-29-2022 [facility] Start: 12-31-2021 End: 12-31-[address] [facility] Start: 12-31-2021 End: 12-31-[address] Karine Parsons Work Phone: [facility] Start: 10-06-2021 End: 10-06-[address] Karine Parsons [facility] Start: 10-06-2021 End: 10-06-[address] Karine Parsons Work Phone: [facility] Start: 09-23-2021 End: 09-23-[address] Karine Parsons [facility] Procedures Date Procedure Procedure Detail [...] Phone: Start: 10-05-2024 In-vitro immunologic test Dr. Karine Parsons DO Work Phone: Comment [...] the productionof interferon gamma. Chemiluminescence immunoassaymethodologyPerformed at: [facility] [id number] Director: Dennis Orantes PhD, Phone: [phone] Start: 11-02-2023 Screening mammography Start: 10-29-2022 Screening mammography Start: 09-23-[address] Karine Parsons Work Phone: Start: 07-19-2017 End: 07-19-2017 Colposcopy entire vagina w/cervix if present Aida Mena MD Work Phone: Plan of Treatment Date Care Activity Detail Author Start: 12-14-2022 Liquid based cervica l cytology screening [facility] Start: 07-19-2017 End: 07-19-2017 Appointment Appointment [facility] Path report.final Dx Spec Wo [facility] Immunizations Immunization Date Immunization Notes Care Provider Fa kality 12-05-2020 Covid (Pfizer) Dr. Karine glynn Work Phone: [facility] 11-14-2020 Covid (Pfizer) Dr. Karine glynn Work Phone: [facility] Payers Date Payer Category Payer Self-pay [id number] Private Health Insurance [id number] 2011 Private Health Insurance [id number] Private Health Insurance [employer] [id number] Unknown [id number] 2.16.8 [id number] Unknown [id number] 2.16.8 [id number] Unknown [id number] 2.16.8 [id number] Unknown [id number] 2.16.8 [id number] Unknown [id number] 2.16.8 [id number] Unknown [id number] 2.16.8 [id number] Unknown [id number] 2.16.8 [id number] Unknown [id number] 2.16.8 [id number] Unknown [id number] 2.16.8 [id number] Unknown [id number] 2.16.8 [id number] Unknown [id number] 2.16.8 [id number] Unknown [id number] 2.16.8 [id number] Unknown [id number] 2.16.8 [id number] Social History Date Type Detail Facility Start: 10-06-2021 End: 01-19-2023 Tobacco smoking status NHIS Unknown if ever smoked [facility] Start: 1970 Sex Assigned At Female [facility] Start: 04-10-2024 End: 12-17-2024 Tobacco smoking status NHIS Never smoked tobacco (finding) [facility] Start: 11-12-2024 Sex Female (finding) [facility] Evaluation note 10-05-2024 Note Date & [...] gynecological examination noneactive December 17, 2024 1:30pm [facility] Work Phone: Clinical Note 04-17-2024 Note Date & Type Note Facility 04-17-2024 Note [facility] Medical Records Department [address] [place] [address] History Physical Exam 04/17/24911 MR#: [id number] Acct: [id number] Name: KARINE HASSAN Rep #: [id number] : 1970 54 From: Aida Mena MD PCP: Dr. 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 FOR RECORDS PERTAINING TO PATIENTS WHO ARE [...] BE BASED ON THE PRIMARY CLINICAL RECORDS. [facility] [employer] [facility]. provides no warranty or guarantee of the accuracy or completeness of information in this document.
== END | disposition home or self-care (01) ==
LOC: MTRAD 13:11
PROVIDERS: PCP Family Medicine; Referring Provider Nurse Practitioner Family; Visit Provider Nurse Practitioner Family
DX: M79.671 Pain in right foot (principal)
CPT/HCPCS: 73630

== ENCOUNTER → 2025-03-15 | Outpatient (CLI) | payer OTHER, SELFPAY ==
--- NOTE | 2025-03-15 13:40 | CT_ITS ---
PROCEDURE: LIMITED CHEST CT CARDIAC ONLY 03/15/2025 REASON FOR EXAM: FAMILY HX OF HEART DISEASE, HTN TECHNIQUE: LIMITED CHEST CT CARDIAC ONLY Coronal and Sagittal reconstruction series were provided. CONTRAST: None One or more dose reduction techniques were used (e.g., Automated exposure control, adjustment of the mA and/or kV according to patient size, use of iterative reconstruction technique). RADIATION DOSE SUMMARY: CTDlvol: 12.19 mGy DLP: 243.79 mGycm COMPARISON: None FINDINGS: Mild degree of coronary artery calcification. The heart is nonenlarged. The lungs are clear. CT/Limited Chest CT Cardiac Only IMPRESSION: Mild coronary artery calcification. Reading Location: [facility]-
--- NOTE | 2025-03-15 16:53 | CA.SCORE ---
Calcium Scoring Date of Study:: 03/15/25 Indications Indications: Family history Coronary Calcium Scoring: High-resolution Computed Tomographic imaging of the chest was performed on [03/15/2025], with particular attention paid to the coronary arteries. Images from the examination were analyzed for the presence and extent of coronary artery calcification , using coronary calcium quantification software. The patient tolerated the procedure well and there were no complications. The results of the coronary calcification analysis are provided below. Findings Coronary Artery Left Main (LM): 0 Left Anterior Descending (LAD): 0 Left Circumflex (LCX): 0 Right Coronary Artery (RCA): 0 Total Agatston Score: 0 Percentile Rankinth Calcium Scoring Interpretation: Different methods to categorize the overall amount of coronary plaque. Overall amount CAC SIS Visual of coronary plaque P1 Mild -100 <2 1-2 vessels with mild amount of plaque P2 Moderate 101-300 3-4 1-2 vessels with moderate amount, 3 vessels with mild amount of plaque P3 Severe 301-999 5-7 3 vessels with moderate amount, 1 vessel with severe amount of plaque P4 Extensive >1000 >8 2-3 vessels with severe amount of plaque Conclusion: No atherosclerotic plaquing noted
== END | disposition home or self-care (01) ==
LOC: CT 13:36
PROVIDERS: PCP Family Medicine; Referring Provider Family Medicine; Visit Provider Family Medicine
DX: I10 Essential (primary) hypertension (principal); Z83.49 Family history of other endocrine, nutritional and metabolic diseases
CPT/HCPCS: 75571; 76380

== ENCOUNTER → 2025-06-10 | Outpatient (CLI) | payer OTHER, SELFPAY ==
[2025-06-14 13:08] LABS: HPV APTIMA, High Risk Negative (Negative)
== END | disposition home or self-care (01) ==
LOC: LABSPEC 11:34
PROVIDERS: PCP Family Medicine; Referring Provider Obstetrics & Gynecology; Visit Provider Obstetrics & Gynecology
DX: Z12.4 Encounter for screening for malignant neoplasm of cervix (principal); N87.0 Mild cervical dysplasia
CPT/HCPCS: 87624; 88175; G0145